=== PATIENT | male | born 1950 | race Caucasian/White ===

== ENCOUNTER 2016-07-27 21:53 | Inpatient (IN) | payer OTHER ==
[2016-07-27] MEDS ORDERED: SODIUM BICARBONATE 8.4% 50 MEQ/50 ML DISP.SYRIN IVPUSH ONE (21:58)
--- NOTE | 2016-07-27 21:58 | PDOC ---
History of Present Illness - General History Source: EMS, Spouse () Exam Limitations: Intubated, Unresponsive - History of Present Illness Initial Comments: 07/27/16 23:35 The patient is a 66 year old male with significant past medical history of COPD , hypertension, and diabetes who presents to the ED BIBA from home s/p cardiac arrest prior to arrival. As per EMS, patient was found down 30 minutes prior to arrival. 10 minutes prior to being found down, patient had complaints of nausea and one episode of vomiting. Patient went to bed and 10 minutes later was found by lying in bed and incontinent of bowel. EMS was called and upon arrival, they began CPR. Patient was intubated and cardiac thumper was placed. EMS administered 6 rounds of epi and 1 bicarb. Patient arrived to ER at 21:50, a strong pulse was noted at 21:52, ultrasound was done at bedside at 21:52 and a strong cardiac motility was noted. At 21:53, vitals were checked, blood pressure noted to be 150/67 and heart rate of 92. At 21:54, 1 round of bicarb was given at bedside. At 21:57, vitals were checked again, blood pressure noted to be 138/74 and heart rate of 90. After speaking with the , at bedside, patient had complaints of feeling ill with generalized malaise, fever and decreased appetite within the past 3 days. Patient visited his PMD, where he was told he had a viral illness and nothing else. also reports patient had 3 episodes of vomiting on Monday, Monday and this evening. states patient went to work today and after feeling ill, he decided to come home early. After coming home, patient had one episode of vomiting and went to bed, where found him down 10 minutes later. She denies any sick contacts or recent travels. Allergies: Penicillin Social History: No alcohol, tobacco, or drug use reported. Past Surgical History: None reported PCP: Dr. Padma Woodruff Pmp Certified Project Manager: Dr. Carter Paulino Cardio: Dr. Clover Sinclair GI: Dr. Ziyad Lind Tow Motor Mechanic: Dr. Louise Alvarado Nephro: Dr. Alicja Hernadez Associate Program Manager: Dr. Rosie Quigley Urologist: Dr. Ace Buckley ENT: Corrine Funez - Last Filed: 07/27/16 23:34> - General History Source: EMS <Vini Francois - Last Filed: 07/28/16 19:21> - General Stated Complaint: CARDIAC ARREST Time Seen by Provider: 07/27/16 21:57 Past History <Zheng Ferrota - Last Filed: 07/27/16 23:34> <Vini Francois - Last Filed: 07/28/16 19:21> - Past Medical History Allergies/Adverse Reactions: Allergies Allergy/AdvReac Type Severity Reaction Status Date / Time Penicillins Allergy Verified 12/29/14 08:58 Home Medications: Ambulatory Orders Insulin Lispro [Humalog] 100 unit SQ DAILY 07/28/16 Review of Systems - Review of Systems Able to Perform ROS?: No Comments:: 07/27/16 23:35 Unable to obtain as patient is unresponsive <KarenfarrahIrenaCorrine - Last Filed: 07/27/16 23:34> *Physical Exam - Vital Signs Last Vital Signs Temp Pulse Resp BP Pulse Ox 94 H 26 H 132/69 100 07/27/16 22:48 07/27/16 22:48 07/27/16 22:48 07/27/16 22:48 - Physical Exam Comments: 07/27/16 23:35 GENERAL: Well developed, well nourished. Pt is unresponsive. Intubated. HEENT: Normocephalic, atraumatic. 3mm dilated, but slowly reactivated to light. Slight conjunctival pallor. Sclera are non-icteric. Moist mucous membranes. Oropharynx is clear. NECK: Supple. Mild JVD. Carotid pulses 2+ and symmetric, without bruits. No thyromegaly. No lymphadenopathy. CARDIOVASCULAR: Tachycardic rate. Regular rhythm. No murmurs, rubs, or gallops. Distal pulses are 2+ and symmetric. PULMONARY: Intubated. No spontaneous breath sounds. Patient being bagged by BVM. ABDOMINAL: Soft. Non-tender. Mild distended. MUSCULOSKELETAL No bony deformities or tenderness. EXTREMITIES: No cyanosis. No clubbing. No edema. SKIN: Warm and dry. Normal capillary refill. No rashes. No jaundice. NEUROLOGICAL: Pt is unresponsive. Intubated. <Corrine Ferro - Last Filed: 07/27/16 23:34> Heart Score/ECG Review - ECG Impressions Comment:: 07/27/16 23:28 Sinus tachycardia @116bpm Possible left atrial enlargement RBBB Left posterior fascicular block Bifascicular block Abnormal ECG <Corrine Ferro - Last Filed: 07/27/16 23:34> ED Treatment Course - LABORATORY CBC & Chemistry Diagram: 07/27/16 22:04 07/27/16 22:04 - ADDITIONAL ORDERS Additional order review: Laboratory Results 07/27/16 07/27/16 07/27/16 22:14 22:12 22:04 INR Puncture Site Left radial ABG pH 7.29 L ABG pCO2 at Pt Temp 43.2 ABG pO2 at Pt Temp 535.0 H* ABG HCO3 20.2 L ABG O2 Sat (Measured) 99.9 H* ABG O2 Content 16.6 ABG Base Excess -5.5 L George Test Positive Carboxyhemoglobin 1.5 Methemoglobin 1.4 O2 Delivery Device Ventilator Oxygen Flow Rate 100% Vent Mode A/c Vent Rate 18 Mechanical Rate Yes PEEP 5.0 Pressure Support Vent 450 Sodium 135 L Potassium 4.6 Chloride 97 L Carbon Dioxide 21 Anion Gap 17 H BUN 22 H Creatinine 2.0 H Creat Clearance w eGFR 33.60 Random Glucose 327 H* Calcium 7.8 L Magnesium 2.3 Total Bilirubin 0.5 AST 58 H ALT 44 Alkaline Phosphatase 112 B-Natriuretic Peptide 2579.43 H Total Protein 6.1 L Albumin 2.6 L Lipase 51 L 07/27/16 22:04 INR 1.51 H Puncture Site ABG pH ABG pCO2 at Pt Temp ABG pO2 at Pt Temp ABG HCO3 ABG O2 Sat (Measured) ABG O2 Content ABG Base Excess George Test Carboxyhemoglobin Methemoglobin O2 Delivery Device Oxygen Flow Rate Vent Mode Vent Rate Mechanical Rate PEEP Pressure Support Vent Sodium Potassium Chloride Carbon Dioxide Anion Gap BUN Creatinine Creat Clearance w eGFR Random Glucose Calcium Magnesium Total Bilirubin AST ALT Alkaline Phosphatase B-Natriuretic Peptide Total Protein Albumin Lipase 07/27/16 22:04 RBC 3.95 L MCV 91.6 MCHC 33.1 RDW 13.3 MPV 9.7 Neutrophils % 67.8 Lymphocytes % 22.9 Monocytes % 8.8 Eosinophils % 0.1 Basophils % 0.4 - RADIOLOGY Radiograph Interpretation: 07/27/16 23:30 RAD/CHEST X-RAY PORTABLE Radiologist's Impression: The cardiac silhouette remains within normal limits in size. Bilateral interstitial and airspace opacities are present suggestive of noncardiogenic pulmonary venous congestion versus bilateral interstitial infiltrates. Endotracheal tube tip and distal end of the NG tube are in satisfactory position. The mediastinum and visualized osseous structures appear intact. Impression: Bilateral interstitial and airspace opacities suggestive of pneumonia versus noncardiogenic pulmonary venous congestion. Correlate clinically. - Medications Given in the ED: ED Medications Discontinued Medications Generic Name Dose Route Start Last Admin Trade Name Freq PRN Reason Stop Dose Admin Sodium Bicarbonate 50 meq 07/27/16 21:58 07/27/16 22:30 Sodium Bicarbonate 8.4% - IVPUSH 07/27/16 21:59 50 meq ONCE ONE Administration <Corrine Ferro - Last Filed: 07/27/16 23:34> - LABORATORY CBC & Chemistry Diagram: 07/28/16 16:15 07/28/16 16:15 <Vini Francois - Last Filed: 07/28/16 19:21> Medical Decision Making - Medical Decision Making 07/27/16 23:[address] Padma Woodruff (via answering service) at 23:00 Awaiting call back Patient's case discussed with Dr. Woodruff at 23:06 <Corrine Ferro - Last Filed: 07/27/16 23:34> - Medical Decision Making 07/27/16 23:10 Dr. Francois: The scribe's documentation has been prepared under my direction and personally reviewed by me in its entirery. I confirm that the note above accurately reflects all work, treatment, procedures, and medical decision making performed by me. Patient has maintain spontaneous vital signs since he is presented to the ER. patient will be admitted to the ICU. patient's primary care doctor to give orders fo admission. patient found have bilateral pneumonia verse non- cardiogenic pulmonary edema <Vini Francois - Last Filed: 07/28/16 19:21> *DC/Admit/Observation/Transfer - Attestations Scribe Attestion: 07/27/16 23:29 Documentation prepared by Corrine Ferro, acting as medical assistant instructor for Vini Francois MD <Corrine Ferro - Last Filed: 07/27/16 23:34> - Discharge Dispostion Admit: Yes <Vini Francois - Last Filed: 07/28/16 19:21> Diagnosis at time of Disposition: Cardiac arrest, Non-cardiogenic pulmonary edema Pneumonia Qualifiers: Pneumonia type: due to unspecified organism Laterality: bilateral - Referrals
[2016-07-27] MEDS ORDERED: MIDAZOLAM HCL 2 MG/2 ML SINGLE DOSE VIAL IVPUSH ONE (22:15)
[2016-07-27] MEDS ORDERED: PROPOFOL 100 ML ONE (22:18)
[2016-07-27] MEDS ORDERED: MIDAZOLAM HCL 2 MG/2 ML SINGLE DOSE VIAL ONE (22:18)
[2016-07-27 22:20] LABS: BASOPHIL 0.4 % (0-2.0); EOSINOPHIL 0.1 % (0-4.5); MCH 30.3 pg (25.7-33.7); MCHC 33.1 g/dl (32.0-35.9); MEAN CELL VOLUME 91.6 fl (80-96); MEAN PLT VOLUME 9.7 fl (7.5-11.1); NEUTROPHILS 67.8 % (42.8-82.8); PLATELET COUNT 154 K/MM3 (134-434); RDW 13.3 % (11.9-15.9); WHITE BLOOD COUNT 12.9 K/mm3 (4.0-10.0)
[2016-07-27 22:21] LABS: METHEMOGLOBIN 1.4 % (0.4-1.5)
[2016-07-27 22:23] LABS: ARTERIAL BLD GAS O2 SATURATION 99.9 % (90-98.9); ARTERIAL BLOOD GAS BASE EXCESS -5.5 meq/l (-2-2); ARTERIAL BLOOD GAS HCO3 20.2 meq/L (22-26)
[2016-07-27 22:24] LABS: ALLENS TEST POSITIVE; ART PUNCT SITE LEFT RADIAL; ARTERIAL BLOOD GAS pH 7.29 (7.35-7.45); LPM/O2% 100%; MECH. VENT. YES; PT. ON O2? YES; TYPE OF O2 VENTILATOR; VENT RATE 18; VT/PRESS 450
[2016-07-27 22:33] LABS: INR 1.51 (0.82-1.09); PROTHROMBIN TIME (PATIENT) 16.7 SEC (9.98-11.88)
[2016-07-27 22:47] LABS: ALBUMIN 2.6 g/dl (3.4-5.0); ANION GAP 17 (8-16); BILIRUBIN,TOTAL 0.5 mg/dL (0.2-1.0); CALCIUM 7.8 mg/dL (8.5-10.1); CO2 21 mmol/L (21-32); GLUCOSE,RANDOM 327 mg/dL (74-106); SGPT/ALT 44 U/L (12-78); TOT PROT 6.1 g/dl (6.4-8.2)
[2016-07-27 22:49] LABS: ALK PHOS 112 U/L (45-117)
[2016-07-27 22:50] LABS: MAGNESIUM 2.3 mg/dL (1.8-2.4); SGOT/AST 58 U/L (15-37)
[2016-07-27] MEDS ORDERED: LEVOFLOXACIN 750 MG IVPB 150 ML IVPB ONE ×2 (22:50→22:51)
[2016-07-27 22:58] LABS: URINE APPEARANCE CLEAR; URINE BILIRUBIN NEGATIVE (NEGATIVE); URINE COLOR LTYELLOW; URINE GLUCOSE (UA) 3+ (NEGATIVE); URINE KETONE TRACE (NEGATIVE); URINE LEUK ESTERASE NEGATIVE (NEGATIVE); URINE NITRITE NEGATIVE (NEGATIVE); URINE UROBILINOGEN NEGATIVE E.U./dl (0.2-1.0)
[2016-07-27 23:01] LABS: URINE BLOOD 2+ (NEGATIVE); URINE PROTEIN 2+ (NEGATIVE)
[2016-07-27 23:03] LABS: URINE BACTERIA FEW /hpf (NONE SEEN); URINE MUCUS RARE; URINE RBC 39 /hpf (0-3); URINE WBC 15 /hpf (3-5); YEAST RARE
[2016-07-27 23:29] LABS: ACETONE SERUM NEGATIVE (NEGATIVE)
[2016-07-27] MEDS ORDERED: ROCURONIUM BROMIDE 50 MG/5 ML VIAL IV ONE ×2 (23:30→23:49)
[2016-07-27] MEDS ORDERED: RAPID SEQUENCE INTUBATION KIT NR ONE ×2 (23:43→23:45)
[2016-07-27 23:50] LABS: TROPONIN I 0.06 ng/ml (0.00-0.05)
[2016-07-27] MEDS: PROPOFOL 100 ML IVPB SCH (23:58)
[2016-07-28] MEDS ORDERED: RAPID SEQUENCE INTUBATION KIT NR ONE (00:35)
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
[2016-07-28] MEDS ORDERED: ALBUTEROL SO4 0.083% IH SOL 2.5 MG/3 ML VIAL.NEB. NEB ONE (00:50)
[2016-07-28] MEDS ORDERED: AZITHROMYCIN IVPB 500 MG in DEXTROSE 5%-WATER - 250 ML IVPB ONE (01:21)
[2016-07-28] MEDS ORDERED: ATORVASTATIN CA 80 MG TABLET (FP) PO ONE (01:23)
[2016-07-28] MEDS ORDERED: ALBUTEROL SO4 0.083% IH SOL 2.5 MG/3 ML VIAL.NEB. NEB PRN (01:24)
[2016-07-28 01:28] VITALS: BMI 23.9
[2016-07-28 01:38] LABS: BASOPHIL 0.1 % (0-2.0); MCH 30.4 pg (25.7-33.7); MCHC 33.7 g/dl (32.0-35.9); MEAN CELL VOLUME 90.1 fl (80-96); MEAN PLT VOLUME 9.4 fl (7.5-11.1); NEUTROPHILS 84.7 % (42.8-82.8); PLATELET COUNT 137 K/MM3 (134-434); WHITE BLOOD COUNT 8.4 K/mm3 (4.0-10.0)
[2016-07-28] MEDS ORDERED: levETIRAcetam 500 MG/5 ML INJECTION VIAL IVPB ONE (01:41)
[2016-07-28 01:44] LABS: ARTERIAL BLD GAS O2 SATURATION 94.6 % (90-98.9); ARTERIAL BLOOD GAS BASE EXCESS -3.8 meq/l (-2-2); ARTERIAL BLOOD GAS HCO3 22.7 meq/L (22-26); ARTERIAL BLOOD GAS PO2 81.9 mmHg (80-100)
[2016-07-28 01:45] LABS: ALLENS TEST POSITIVE; ART PUNCT SITE RIGHT RADIAL; ARTERIAL BLOOD GAS pH 7.28 (7.35-7.45); LPM/O2% 45%; MECH. VENT. YES; PT. ON O2? YES; TYPE OF O2 MECH VENT; VENT RATE 18; VT/PRESS 375
[2016-07-28] MEDS ORDERED: ENALAPRILAT DIHYDRATE 1.25 MG/1 ML VIAL IVPB ONE (01:47)
[2016-07-28 01:50] LABS: INR 1.55 (0.82-1.09); PROTHROMBIN TIME (PATIENT) 17.2 SEC (9.98-11.88)
[2016-07-28] MEDS ORDERED: VECURONIUM BROMIDE 10 MG VIAL ONE (01:51)
[2016-07-28 01:52] LABS: ACTIVATED PTT 29.2 SECONDS (26.9-34.4)
[2016-07-28] MEDS: MIDAZOLAM 100 MG in SODIUM CHLORIDE 100 ML IVPB SCH (01:54)
[2016-07-28 02:00] LABS: ALBUMIN 2.7 g/dl (3.4-5.0); BILIRUBIN,TOTAL 0.6 mg/dL (0.2-1.0); CALCIUM 7.3 mg/dL (8.5-10.1); CREATININE 1.8 mg/dL (0.7-1.3); MAGNESIUM 1.8 mg/dL (1.8-2.4); PHOSPHOROUS 4.8 mg/dL (2.5-4.9); TOT PROT 6.2 g/dl (6.4-8.2)
[2016-07-28] MEDS: FENTANYL INJECTION 500 MCG in DEXTROSE 5%-WATER - 90 ML IJ SCH ×2 (02:01→13:50)
[2016-07-28] MEDS: VECURONIUM BROMIDE 50 MG in DEXTROSE 5%-WATER - 250 ML IVPB SCH ×2 (02:02→04:38)
[2016-07-28] MEDS ORDERED: INSULIN REGULAR HUMAN 100 UNITS/ML *VIAL IVPUSH ONE (02:08)
[2016-07-28] MEDS ORDERED: SODIUM CHLORIDE 1,000 ML IV SCH (02:15)
[2016-07-28] MEDS ORDERED: AZITHROMYCIN IVPB 500 MG/250 ML D5W PRE-DOCKED IVPB ONE (02:30)
[2016-07-28] MEDS: INSULIN SLIDING SCALE (NOVOLOG) 1 VIAL SQ SCH ×3 (06:15→16:51)
[2016-07-28] MEDS: ALBUTEROL SO4 2.5/IPRATROPIUM 0.5 INH SOL 3 ML VIAL.NEB. NEB SCH ×3 (06:15→22:54)
[2016-07-28 08:38] LABS: BASOPHIL 0.1 % (0-2.0); EOSINOPHIL 0.1 % (0-4.5); MCH 30.3 pg (25.7-33.7); MEAN PLT VOLUME 9.4 fl (7.5-11.1); NEUTROPHILS 83.1 % (42.8-82.8); PLATELET COUNT 125 K/MM3 (134-434); RDW 13.5 % (11.9-15.9); WHITE BLOOD COUNT 7.9 K/mm3 (4.0-10.0)
[2016-07-28 09:07] LABS: ALBUMIN 2.4 g/dl (3.4-5.0); CALCIUM 7.3 mg/dL (8.5-10.1); MAGNESIUM 1.9 mg/dL (1.8-2.4)
[2016-07-28 09:11] LABS: BILIRUBIN,TOTAL 0.3 mg/dL (0.2-1.0); CREATININE 1.7 mg/dL (0.7-1.3); PHOSPHOROUS 2.2 mg/dL (2.5-4.9); TOT PROT 5.5 g/dl (6.4-8.2)
--- NOTE | 2016-07-28 09:16 | CON.CARD ---
Consult Consult Specialty:: Cardiology Referred by:: Dinesh Woodruff MD Reason for Consultation:: Post arrest - History of Present Illness Chief Complaint: Post arrest History of Present Illness: Pt is a 66yr old man with PMHx including COPD, HTN, CAD post AR with abnl MPI, CKD, PAD, tobacco abuse and DM presented to the ER via ems s/p cardiac arrest. Per report, pt endorsed malaise, subjective fever and decreased PO intake x 3 days and vomiting since Monday, pt endorsed nausea and vomited ~10 minutes prior to being found incontinent of bowel and unresponsive. Per pt was still breathing when EMS was called, pt down ~30 minutes prior to arrival, initial rhythm unknown. Pt intubated, acs initiated at 2150 with ROSC s/p 6 rounds of epi and 1 bicarb. Pt started on Levaquin, IVF and cooling protocol and admitted to the ICU for further management. Upon assessment pt unresponsive on ventilator, cooling blanket and low dose propofol, hemodynamically stable. Myoclonic jerks off sedation by report. - History Source History Provided By: Medical Record Limitations to Obtaining History: Intubated - Past Medical History Cardio/Vascular: Yes: CAD, HTN, Hyperlipdemia, AR Pulmonary: Yes: COPD Endocrine: Yes: Diabetes Mellitus - Alcohol/Substance Use Hx Alcohol Use: No - Smoking History Smoking history: Unknown if ever smoked Have you smoked in the past 12 months: Yes Aproximately how many cigarettes per day: 20 Home Medications - Allergies Allergies/Adverse Reactions: Allergies Allergy/AdvReac Type Severity Reaction Status Date / Time Penicillins Allergy Verified 12/29/14 08:58 - Home Medications Home Medications: Ambulatory Orders Insulin Lispro [Humalog] 100 unit SQ DAILY 07/28/16 Review of Systems Unable to obtain ROS, reason: Sedated and intubated Vital Signs: Vital Signs Temperature 96.2 F L 07/28/16 08:00 Pulse Rate 84 07/28/16 08:00 Respiratory Rate 22 07/28/16 08:50 Blood Pressure 120/61 07/28/16 08:00 O2 Sat by Pulse Oximetry (%) 100 07/28/16 01:06 Respiratory: Yes: Regular, Diminished, Intubated, Mechanically Ventilated, Rhonchi Gastrointestinal: Yes: Soft, Hypoactive Bowel Sounds Cardiovascular: Yes: Regular Rate and Rhythm JVD: No Carotid Bruit: No Heart Sounds: Yes: S1, S2 Edema: No - Other Data Labs, Other Data: CBC, BMP 07/28/16 08:17 07/28/16 08:17 INR, PTT INR 1.55 (0.82-1.09) H 07/28/16 01:00 Troponin, BNP 07/28/16 01:00 B-Natriuretic Peptide 2627.14 H Troponin, BNP 07/28/16 01:00 B-Natriuretic Peptide 2627.[address] @ 116 RBBB Ejection Fraction %: LVEF > or = 40 % Imaging - Results Chest X-ray: Report Reviewed (Pulmonary edema) Assessment/Plan 01/01/2015 Preserved LV fxn, mild MR, TR 12/29/2014 Nuc stress: Mod size inferior moderate ischemia, small zone of infarction, LVEF 41% 1. s/p cardiopulmonary arrest 2. Acute systolic failure with pulm edema 3. CAD h/o AR, demand ischemia 4. Acute on CKD improving 5. Suspect anoxic brain injury 6. COPD P:1. Wean vent per ABG, BD, maintained on empiric abx for aspiration PNA, neuro f/u 2. Trend troponins to document peak, f/u echocardiogram to assess ventricular and valve fxn 3. Resume Altace 5 qd, Zocor 40 qhs, ASA 81 qd 4. Enteral feeds, DVT and GI prophylaxis, d/c IVF, diuresis as needed 5. Thank you for consultative opportunity
[2016-07-28 09:18] LABS: INR 1.57 (0.82-1.09); PROTHROMBIN TIME (PATIENT) 17.4 SEC (9.98-11.88)
[2016-07-28 09:20] LABS: ACTIVATED PTT 23.7 SECONDS (26.9-34.4)
[2016-07-28 09:27] LABS: TROPONIN I 1.53 ng/ml (0.00-0.05)
[2016-07-28 10:00] LABS: ARTERIAL BLOOD GAS BASE EXCESS -0.1 meq/l (-2-2); ARTERIAL BLOOD GAS HCO3 24.4 meq/L (22-26); ARTERIAL BLOOD GAS pH 7.38 (7.35-7.45)
[2016-07-28] MEDS ORDERED: INSULIN DETEMIR 100 UNITS/ML MDV SQ SCH (10:00)
[2016-07-28 10:01] LABS: ALLENS TEST POSITIVE; ART PUNCT SITE RIGHT RADIAL; LPM/O2% 35%; MECH. VENT. ESPRIT; PT. ON O2? YES; TYPE OF O2 MEC.VENT; VENT RATE 22; VT/PRESS 375
[2016-07-28] MEDS ORDERED: PT OWN MED DRAWER 7, Y5N ONE (10:51)
[2016-07-28] MEDS: PANTOPRAZOLE SODIUM 100 ML IVPB SCH (11:07)
--- NOTE | 2016-07-28 11:22 | HP ---
Admitting History and Physical - Primary Care Physician PCP: Padma Woodruff - Admission Chief Complaint: cardiac arrest History of Present Illness: From ER Notes-- The patient is a 66 year old male with significant past medical history of COPD , hypertension, and diabetes who presents to the ED BIBA from home s/p cardiac arrest prior to arrival. As per EMS, patient was found down 30 minutes prior to arrival. 10 minutes prior to being found down, patient had complaints of nausea and one episode of vomiting. Patient went to bed and 10 minutes later was found by lying After speaking with the , at bedside, patient had complaints of feeling ill with generalized malaise, fever and decreased appetite within the past 3 days. Patient visited his PMD, where he was told he had a viral illness and nothing else. also reports patient had 3 episodes of vomiting on Monday, Monday and this evening. states patient went to work today and after feeling ill, he decided to come home early. After coming home, patient had one episode of vomiting and went to bed, where found him down 10 minutes later. She denies any sick contacts or recent travels. Pt seen by me in ICU Spoke to staff and pt's About 3 days prior to the arrest , pt has been having generalised abdominal pain , nausea and diarrhea . He had seen Dr Woodruff in the office 2 days ago and told him he was getting better- examination was benign and pt was told that it was viral illness. [place]esteday after dinner , pt's said that he did not eat much, vomited his dinner and c/o abdominal pain and went to his room. He " did not look right " per and she found him in the room unconscious and EMS was called. Pt is intubated, sedated and hypothermia protocol in progress.Also on Vecuronium Not on pressor support states his BGM were in the 150-200 range- even before dinner it was 200 History Source: Medical Record Limitations to Obtaining History: Intubated - Past Medical History Cardiovascular: Yes: CAD, HTN, Hyperlipdemia, CT Pulmonary: Yes: COPD Endocrine: Yes: Diabetes Mellitus - Smoking History Smoking history: Unknown if ever smoked Have you smoked in the past 12 months: Yes Aproximately how many cigarettes per day: 20 - Alcohol/Substance Use Hx Alcohol Use: No Home Medications - Allergies Allergies/Adverse Reactions: Allergies Allergy/AdvReac Type Severity Reaction Status Date / Time Penicillins Allergy Verified 12/29/14 08:58 - Home Medications Home Medications: Ambulatory Orders Insulin Lispro [Humalog] 100 unit SQ DAILY 07/28/16 Review of Systems Unable to obtain ROS, reason: intubated Physical Examination Vital Signs: Vital Signs Temperature 94 F L 07/28/16 10:00 Pulse Rate 76 07/28/16 10:00 Respiratory Rate 22 07/28/16 10:00 Blood Pressure 142/70 07/28/16 10:00 O2 Sat by Pulse Oximetry (%) 96 07/28/16 09:00 Constitutional: Yes: No Distress, Other (intubated) Cardiovascular: Yes: Regular Rate and Rhythm Respiratory: Yes: Diminished Gastrointestinal: Yes: Normal Bowel Sounds, Soft, Abdomen, Obese. No: Distention, Tenderness Edema: No Neurological: Yes: Other (intubated , sedated) Labs: CBC, BMP 07/28/16 08:17 07/28/16 08:17 Imaging - Results Chest X-ray: Image Reviewed (congestion) EKG: Image Reviewed (sinus tacycardia) Assessment/Plan PLAN Cardiac arrest Strep pneumoniae Pneumonia Systolic CHF- decompensated CKD Diabetes HTN -- On Hypothermia protocol, sedation and Paralytic --ID evaluation -- on Zithromax now -- ICU monitoring -- Keppra for seizure prophylaxis -- no pressors -- check blood and urine cultures -- continue with care -- DVT prophylaxis -- spoke with time spent 40 min
[2016-07-28] MEDS: levETIRAcetam 500 MG/5 ML INJECTION VIAL IVPB SCH ×2 (11:44→22:25)
--- NOTE | 2016-07-28 13:28 | CONSULT ---
Consult - text type - Consultation Consultation Note: Renal Consult for CKD in settnig of Cardiac Arrest This is a 66 year old Gentleman with PMhx of CKD Stage 3 (baseline Cr 2, eGFR 33 ), Hypertension, DM, CAD s/p AL, PVD who presented s/p Cardiac Arrest at home s/ p resuscitation and now in ICU on Vent. As per pts pt has been complaining of Abd discomfort and Nausea after coming home from work yesterday. Vomited x 1 at home. Pt was found unresponsive by his . He was down for 10 minutes. S/p Epi x6. Pt currently in the ICU. BP stable off pressers. Suspected PNA. On Vent , sedated. Family at the bedside. PMhx: as above Allergies: PCN Social hx: Former smoker ROS: unable to obtain because of clinical status Home Meds : Home Medications Medication Instructions Recorded Insulin Lispro [Humalog] 100 unit SQ DAILY 07/28/16 Glipizide, Lantus, Tradjenta, Ramipril, Tamsulosin, Simavastatin, Metoprolol, Ranexa, Vit D, Spiriva, Advair, ASA, humalog Vital Signs Temperature 93 F L 07/28/16 12:00 Pulse Rate 66 07/28/16 12:00 Respiratory Rate 22 07/28/16 12:00 Blood Pressure 152/72 07/28/16 12:00 O2 Sat by Pulse Oximetry (%) 96 07/28/16 09:00 Intake & Output 07/25/16 07/26/16 07/27/16 07/28/16 23:59 23:59 23:59 23:59 Intake Total 2637 Output Total 1100 Balance 1537 Weight 205 lb 148 lb 4.8 oz Gen: Intubated, sedated HEENT: NC/AT, ET tube in place, no JVD CVS: RRR, No M/R Lungs: Dec BS lung bases, no rales Abd: soft NT/ND Ext: No edema, clubbing or cyanosis : no bladder distension Neuro: Sedated CBC, BMP 07/28/16 08:17 07/28/16 08:17 Current Medications Albuterol Sulfate (Ventolin 0.083% Nebulizer Soln -) 1 amp NEB Q4H PRN PRN Reason: SHORT OF BREATH/WHEEZING Albuterol/Ipratropium (Duoneb -) 1 amp NEB TIDR [facility] Last Admin: 07/28/16 06:15 Dose: 1 amp Atorvastatin Calcium (Lipitor -) 80 mg PO HS VANESSA Propofol (Diprivan -) 100 mls @ 2.79 mls/hr IVPB TITR VANESSA; 5 MCG/KG/MIN PRN Reason: Protocol Last Admin: 07/27/16 23:58 Dose: 5.579 mls/hr Fentanyl 500 mcg/ Dextrose 100 mls @ 10 mls/hr IJ TITR VANESSA PRN Reason: 50 MCG/HR Stop: 07/29/16 00:29 Last Titration: 07/28/16 03:52 Dose: 50 mcg/hr Midazolam HCl 100 mg/ Sodium (Chloride) 100 mls @ 2 mls/hr IVPB TITR VANESSA; 2 MG/ HR PRN Reason: Protocol Last Admin: 07/28/16 01:54 Dose: 2 mls/hr Vecuronium [place] 50 mg/ (Dextrose) 250 mls @ 22.31 mls/hr IVPB TITR VANESSA; 0.8 MCG/KG/MIN PRN Reason: Protocol Last Admin: 07/28/16 04:38 Dose: Not Given Pantoprazole Sodium (Protonix 40mg Ivpb (Pre-Docked)) 100 mls @ 200 mls/hr IVPB DAILY [facility] Last Admin: 07/28/16 11:07 Dose: 200 mls/hr Ceftriaxone Sodium 2 gm/ (Dextrose) 100 mls @ 200 mls/hr IVPB DAILY [facility] Insulin Aspart (Novolog Vial Sliding Scale -) 1 vial SQ TIDAC VANESSA PRN Reason: Protocol Last Admin: 07/28/16 11:38 Dose: 3 units Levetiracetam (Keppra Injection -) 500 mg IVPB BID [facility] Last Admin: 07/28/16 11:44 Dose: 500 mg A/P 66 year old Gentleman with PMhx of CKD Stage 3 (baseline Cr 2, eGFR 33), Hypertension, DM, CAD s/p AL, PVD who presented s/p Cardiac Arrest at home s/p resuscitation and now in ICU on Vent. #Cardiac Arrest Etiology uncertain at this time ? primary cardiac event (Elevated Trop, Abnormal echo) vs. PNA (aspiration) Pt in the past known to have midl hyperkalemia but K was not elevated on presentation Continue Management as per ICU Vent support #CKD stage 3 Renal function appears stable and at baseline continue IVF as needed for hemodynamic support Trend BUN/Cr Dose all meds for Cr Cl ~30 avoid IV contrast if possible #Hx of Hypertension BP stable off Antihypertensives #Anemia Trend CBC #Suspected PNA continue emperic Abx f/u cultures Thank you Will follow Ham Patel DO
--- NOTE | 2016-07-28 14:45 | PN ---
Teaching Attending Note Name of Resident: Inderjit Araiza ATTENDING PHYSICIAN STATEMENT I saw and evaluated the patient. I reviewed the resident's note and discussed the case with the resident. I agree with the resident's findings and plan as documented. SUBJECTIVE: Patient seen and examined in the ICU. Intubated and sedated. Hemodynamics stable on pressors. Hypothermia protocol ongoin (34.8 degrees). AC mode of vent. Paralyzed on Vecuronium drip with 1 twitch noted on TOF. Intake & Output 07/25/16 07/26/16 07/27/16 07/28/16 23:59 23:59 23:59 23:59 Intake Total 2637 Output Total 1100 Balance 1537 Weight 205 lb 148 lb 4.8 oz Last Vital Signs Temp Pulse Resp BP Pulse Ox 92.4 F L 60 22 117/62 96 07/28/16 14:00 07/28/16 14:00 07/28/16 14:23 07/28/16 14:00 07/28/16 09:00 Active Medications Albuterol Sulfate (Ventolin 0.083% Nebulizer Soln -) 1 amp NEB Q4H PRN PRN Reason: SHORT OF BREATH/WHEEZING Albuterol/Ipratropium (Duoneb -) 1 amp NEB TIDR VANESSA Last Admin: 07/28/16 13:50 Dose: 1 amp Atorvastatin Calcium (Lipitor -) 80 mg PO HS VANESSA Propofol (Diprivan -) 100 mls @ 2.79 mls/hr IVPB TITR VANESSA; 5 MCG/KG/MIN PRN Reason: Protocol Last Admin: 07/27/16 23:58 Dose: 5.579 mls/hr Fentanyl 500 mcg/ Dextrose 100 mls @ 10 mls/hr IJ TITR VANESSA PRN Reason: 50 MCG/HR Stop: 07/29/16 00:29 Last Admin: 07/28/16 13:50 Dose: 5 mls/hr Midazolam HCl 100 mg/ Sodium (Chloride) 100 mls @ 2 mls/hr IVPB TITR VANESSA; 2 MG/ HR PRN Reason: Protocol Last Admin: 07/28/16 01:54 Dose: 2 mls/hr Vecuronium [place] 50 mg/ (Dextrose) 250 mls @ 22.31 mls/hr IVPB TITR VANESSA; 0.8 MCG/KG/MIN PRN Reason: Protocol Last Admin: 07/28/16 04:38 Dose: Not Given Pantoprazole Sodium (Protonix 40mg Ivpb (Pre-Docked)) 100 mls @ 200 mls/hr IVPB DAILY [facility] Last Admin: 07/28/16 11:07 Dose: 200 mls/hr Ceftriaxone Sodium 2 gm/ (Dextrose) 100 mls @ 200 mls/hr IVPB DAILY [facility] Sodium Phosphate 15 mm/ Sodium (Chloride) 255 mls @ 62.5 mls/hr IVPB ONCE ONE Stop: 07/28/16 18:39 Insulin Aspart (Novolog Vial Sliding Scale -) 1 vial SQ TIDAC [facility] PRN Reason: Protocol Last Admin: 07/28/16 11:38 Dose: 3 units Levetiracetam (Keppra Injection -) 500 mg IVPB BID [facility] Last Admin: 07/28/16 11:44 Dose: 500 mg Constitutional: Yes: Intubated and sedated Eyes: Yes: Other (pupils sluggish) HENT: Yes: Other (NGT with dark residual) Neck: Yes: WNL Cardiovascular: Yes: S1, S2, Other (sinus on tele) Respiratory: Yes: Diminished at the bases, bilateral rhonchi, Intubated / Ventilated Gastrointestinal: Yes: Normal Bowel Sounds, Soft, Abdomen, Obese, Distention ...Rectal Exam: Yes: Deferred Renal/: Yes: [place] Present Musculoskeletal: Yes: WNL Extremities: Yes: WNL Edema: No Peripheral Pulses WNL: Yes (+1 bilateral pedal pulses) Integumentary: Yes: Other (red burn [place] on lower sternal region approximately 3cm in diameter) Neurological: Yes: Unresponsive Labs: Laboratory Results - last 24 hr 07/27/16 07/27/16 07/27/16 22:00 22:00 22:04 WBC 12.9 H RBC 3.95 L Hgb 12.0 Hct 36.2 MCV 91.6 MCHC 33.1 RDW 13.3 Plt Count 154 MPV 9.7 Neutrophils % 67.8 Lymphocytes % 22.9 Monocytes % 8.8 Eosinophils % 0.1 Basophils % 0.4 INR PTT (Actin FS) Puncture Site ABG pH ABG pCO2 at Pt Temp ABG pO2 at Pt Temp ABG HCO3 ABG O2 Sat (Measured) ABG O2 Content ABG Base Excess George Test Carboxyhemoglobin Methemoglobin O2 Delivery Device Oxygen Flow Rate Vent Mode Vent Rate Mechanical Rate PEEP Pressure Support Vent Sodium Potassium Chloride Carbon Dioxide Anion Gap BUN Creatinine Creat Clearance w eGFR POC Glucometer Random Glucose Lactic Acid Calcium Phosphorus Magnesium Total Bilirubin AST ALT Alkaline Phosphatase Creatine Kinase 308 Creatine Kinase Index 1.3 CK-MB (CK-2) 4.116 H CK-MB (CK-2) Rel Index Cancelled Troponin I 0.06 H B-Natriuretic Peptide Total Protein Albumin Lipase Urine Color Urine Appearance Urine pH Ur Specific [place] Urine Protein Urine Glucose (UA) Urine Ketones Urine Blood Urine Nitrite Urine Bilirubin Urine Urobilinogen Ur Leukocyte Esterase Urine RBC Urine WBC Urine Bacteria Urine Mucus Urine Yeast Acetone, Qual Blood Type Antibody Screen 07/27/16 07/27/16 07/27/16 22:04 22:04 22:04 WBC RBC Hgb Hct MCV MCHC RDW Plt Count MPV Neutrophils % Lymphocytes % Monocytes % Eosinophils % Basophils % INR 1.51 H PTT (Actin FS) Puncture Site ABG pH ABG pCO2 at Pt Temp ABG pO2 at Pt Temp ABG HCO3 ABG O2 Sat (Measured) ABG O2 Content ABG Base Excess George Test Carboxyhemoglobin Methemoglobin O2 Delivery Device Oxygen Flow Rate Vent Mode Vent Rate Mechanical Rate PEEP Pressure Support Vent Sodium 135 L Potassium 4.6 Chloride 97 L Carbon Dioxide 21 Anion Gap 17 H BUN 22 H Creatinine 2.0 H Creat Clearance w eGFR 33.60 POC Glucometer Random Glucose 327 H* Lactic Acid Calcium 7.8 L Phosphorus Magnesium 2.3 Total Bilirubin 0.5 AST 58 H ALT 44 Alkaline Phosphatase 112 Creatine Kinase Creatine Kinase Index CK-MB (CK-2) CK-MB (CK-2) Rel Index Troponin I B-Natriuretic Peptide 2579.43 H Total Protein 6.1 L Albumin 2.6 L Lipase 51 L Urine Color Urine Appearance Urine pH Ur Specific [place] Urine Protein Urine Glucose (UA) Urine Ketones Urine Blood Urine Nitrite Urine Bilirubin Urine Urobilinogen Ur Leukocyte Esterase Urine RBC Urine WBC Urine Bacteria Urine Mucus Urine Yeast Acetone, Qual Negative Blood Type A POSITIVE Antibody Screen Negative 07/27/16 07/27/16 07/27/16 22:12 22:14 22:45 WBC RBC Hgb Hct MCV MCHC RDW Plt Count MPV Neutrophils % Lymphocytes % Monocytes % Eosinophils % Basophils % INR PTT (Actin FS) Puncture Site Left radial ABG pH 7.29 L ABG pCO2 at Pt Temp 43.2 ABG pO2 at Pt Temp 535.0 H* ABG HCO3 20.2 L ABG O2 Sat (Measured) 99.9 H* ABG O2 Content 16.6 ABG Base Excess -5.5 L George Test Positive Carboxyhemoglobin 1.5 Methemoglobin 1.4 O2 Delivery Device Ventilator Oxygen Flow Rate 100% Vent Mode A/c Vent Rate 18 Mechanical Rate Yes PEEP 5.0 Pressure Support Vent 450 Sodium Potassium Chloride Carbon Dioxide Anion Gap BUN Creatinine Creat Clearance w eGFR POC Glucometer Random Glucose Lactic Acid Calcium Phosphorus Magnesium Total Bilirubin AST ALT Alkaline Phosphatase Creatine Kinase Creatine Kinase Index CK-MB (CK-2) CK-MB (CK-2) Rel Index Troponin I B-Natriuretic Peptide Total Protein Albumin Lipase Urine Color Ltyellow Urine Appearance Clear Urine pH 6.0 Ur Specific [place] 1.010 Urine Protein 2+ H Urine Glucose (UA) 3+ H Urine Ketones Trace H Urine Blood 2+ H Urine Nitrite Negative Urine Bilirubin Negative Urine Urobilinogen Negative Ur Leukocyte Esterase Negative Urine RBC 39 Urine WBC 15 Urine Bacteria Few Urine Mucus Rare Urine Yeast Rare Acetone, Qual Blood Type Antibody Screen 07/28/16 07/28/16 07/28/16 01:00 01:00 01:00 WBC 8.4 D RBC 3.85 L Hgb 11.7 Hct 34.7 L MCV 90.1 MCHC 33.7 RDW 13.0 Plt Count 137 MPV 9.4 Neutrophils % 84.7 H D Lymphocytes % 4.5 L D Monocytes % 10.7 H Eosinophils % 0.0 D Basophils % 0.1 INR 1.55 H PTT (Actin FS) 29.2 Puncture Site ABG pH ABG pCO2 at Pt Temp ABG pO2 at Pt Temp ABG HCO3 ABG O2 Sat (Measured) ABG O2 Content ABG Base Excess George Test Carboxyhemoglobin Methemoglobin O2 Delivery Device Oxygen Flow Rate Vent Mode Vent Rate Mechanical Rate PEEP Pressure Support Vent Sodium 134 L Potassium 5.4 H Chloride 97 L Carbon Dioxide 25 Anion Gap 12 BUN 25 H Creatinine 1.8 H Creat Clearance w eGFR 37.94 POC Glucometer Random Glucose 386 H* Lactic Acid Calcium 7.3 L Phosphorus 4.8 Magnesium 1.8 D Total Bilirubin 0.6 AST 67 H ALT 47 Alkaline Phosphatase 107 Creatine Kinase Creatine Kinase Index CK-MB (CK-2) CK-MB (CK-2) Rel Index Troponin I B-Natriuretic Peptide Total Protein 6.2 L Albumin 2.7 L Lipase Urine Color Urine Appearance Urine pH Ur Specific [place] Urine Protein Urine Glucose (UA) Urine Ketones Urine Blood Urine Nitrite Urine Bilirubin Urine Urobilinogen Ur Leukocyte Esterase Urine RBC Urine WBC Urine Bacteria Urine Mucus Urine Yeast Acetone, Qual Blood Type Antibody Screen 07/28/16 07/28/16 07/28/16 01:00 01:00 01:33 WBC RBC Hgb Hct MCV MCHC RDW Plt Count MPV Neutrophils % Lymphocytes % Monocytes % Eosinophils % Basophils % INR PTT (Actin FS) Puncture Site Right radial ABG pH 7.28 L ABG pCO2 at Pt Temp 50.0 H ABG pO2 at Pt Temp 81.9 D ABG HCO3 22.7 ABG O2 Sat (Measured) 94.6 ABG O2 Content 14.9 L ABG Base Excess -3.8 L George Test Positive Carboxyhemoglobin Methemoglobin O2 Delivery Device Mech vent Oxygen Flow Rate 45% Vent Mode A/c Vent Rate 18 Mechanical Rate Yes PEEP 5.0 Pressure Support Vent 375 Sodium Potassium Chloride Carbon Dioxide Anion Gap BUN Creatinine Creat Clearance w eGFR POC Glucometer Random Glucose Lactic Acid 1.692 Calcium Phosphorus Magnesium Total Bilirubin AST ALT Alkaline Phosphatase Creatine Kinase Creatine Kinase Index CK-MB (CK-2) CK-MB (CK-2) Rel Index Troponin I B-Natriuretic Peptide 2627.14 H Total Protein Albumin Lipase Urine Color Urine Appearance Urine pH Ur Specific [place] Urine Protein Urine Glucose (UA) Urine Ketones Urine Blood Urine Nitrite Urine Bilirubin Urine Urobilinogen Ur Leukocyte Esterase Urine RBC Urine WBC Urine Bacteria Urine Mucus Urine Yeast Acetone, Qual Blood Type Antibody Screen 07/28/16 07/28/16 07/28/16 04:55 06:03 08:17 WBC 7.9 RBC 3.60 L Hgb 10.9 L Hct 32.1 L MCV 89.0 MCHC 34.0 RDW 13.5 Plt Count 125 L MPV 9.4 Neutrophils % 83.1 H Lymphocytes % 6.7 L D Monocytes % 10.0 Eosinophils % 0.1 D Basophils % 0.1 INR PTT (Actin FS) Puncture Site ABG pH ABG pCO2 at Pt Temp ABG pO2 at Pt Temp ABG HCO3 ABG O2 Sat (Measured) ABG O2 Content ABG Base Excess George Test Carboxyhemoglobin Methemoglobin O2 Delivery Device Oxygen Flow Rate Vent Mode Vent Rate Mechanical Rate PEEP Pressure Support Vent Sodium Potassium Chloride Carbon Dioxide Anion Gap BUN Creatinine Creat Clearance w eGFR POC Glucometer [phone] Random Glucose Lactic Acid Calcium Phosphorus Magnesium Total Bilirubin AST ALT Alkaline Phosphatase Creatine Kinase Creatine Kinase Index CK-MB (CK-2) CK-MB (CK-2) Rel Index Troponin I B-Natriuretic Peptide Total Protein Albumin Lipase Urine Color Urine Appearance Urine pH Ur Specific [place] Urine Protein Urine Glucose (UA) Urine Ketones Urine Blood Urine Nitrite Urine Bilirubin Urine Urobilinogen Ur Leukocyte Esterase Urine RBC Urine WBC Urine Bacteria Urine Mucus Urine Yeast Acetone, Qual Blood Type Antibody Screen 07/28/16 07/28/16 07/28/16 08:17 08:17 08:17 WBC RBC Hgb Hct MCV MCHC RDW Plt Count MPV Neutrophils % Lymphocytes % Monocytes % Eosinophils % Basophils % INR PTT (Actin FS) Puncture Site ABG pH ABG pCO2 at Pt Temp ABG pO2 at Pt Temp ABG HCO3 ABG O2 Sat (Measured) ABG O2 Content ABG Base Excess [place] Test Carboxyhemoglobin Methemoglobin O2 Delivery Device Oxygen Flow Rate Vent Mode Vent Rate Mechanical Rate PEEP Pressure Support Vent Sodium 138 Potassium 4.2 D Chloride 101 Carbon Dioxide 28 Anion Gap 9 BUN 27 H Creatinine 1.7 H Creat Clearance w eGFR 40.53 POC Glucometer Random Glucose 223 H D Lactic Acid Calcium 7.3 L Phosphorus 2.2 L D Magnesium 1.9 Total Bilirubin 0.3 D AST 51 H D ALT 42 Alkaline Phosphatase 95 Creatine Kinase 286 Creatine Kinase Index 3.3 CK-MB (CK-2) 9.556 H CK-MB (CK-2) Rel Index Cancelled Troponin I 1.53 H* D B-Natriuretic Peptide Total Protein 5.5 L Albumin 2.4 L Lipase Urine Color Urine Appearance Urine pH Ur Specific [place] Urine Protein Urine Glucose (UA) Urine Ketones Urine Blood Urine Nitrite Urine Bilirubin Urine Urobilinogen Ur Leukocyte Esterase Urine RBC Urine WBC Urine Bacteria Urine Mucus Urine Yeast Acetone, Qual Blood Type Antibody Screen 07/28/16 07/28/16 08:30 09:50 WBC RBC Hgb Hct MCV MCHC RDW Plt Count MPV Neutrophils % Lymphocytes % Monocytes % Eosinophils % Basophils % INR 1.57 H PTT (Actin FS) 23.7 L Puncture Site Right radial ABG pH 7.38 ABG pCO2 at Pt Temp 41.9 ABG pO2 at Pt Temp 80.0 ABG HCO3 24.4 ABG O2 Sat (Measured) 96.0 ABG O2 Content 14.0 L ABG Base Excess -0.1 George Test Positive Carboxyhemoglobin Methemoglobin O2 Delivery Device Mec.vent Oxygen Flow Rate 35% Vent Mode A/c Vent Rate 22 Mechanical Rate Esprit PEEP 5.0 Pressure Support Vent 375 Sodium Potassium Chloride Carbon Dioxide Anion Gap BUN Creatinine Creat Clearance w eGFR POC Glucometer Random Glucose Lactic Acid Calcium Phosphorus Magnesium Total Bilirubin AST ALT Alkaline Phosphatase Creatine Kinase Creatine Kinase Index CK-MB (CK-2) CK-MB (CK-2) Rel Index Troponin I B-Natriuretic Peptide Total Protein Albumin Lipase Urine Color Urine Appearance Urine pH Ur Specific [place] Urine Protein Urine Glucose (UA) Urine Ketones Urine Blood Urine Nitrite Urine Bilirubin Urine Urobilinogen Ur Leukocyte Esterase Urine RBC Urine WBC Urine Bacteria Urine Mucus Urine Yeast Acetone, Qual Blood Type Antibody Screen Assessment/Plan S/P Cardiac Arrest with prolonged ROSC Suspected SUNDAR Shock -> Cardiogenic +/- Septic COPD HTN DM (?) PNA CHF CAD Demand ischemia Acute on CKD PLAN: AC mode of vent ABX per ID Follow ABG Trend troponins ECHO ASA VTE prophylaxis Hypothermia protocol Dr Dolan CCTime 35"
[2016-07-28] MEDS ORDERED: SODIUM PHOSPHATE - 15 MM in SODIUM CHLORIDE 250 ML IVPB ONE (15:00)
--- NOTE | 2016-07-28 15:03 | EKG ---
Test Reason : Blood Pressure : / mmHG Vent. Rate : 116 BPM Atrial Rate : 116 BPM P-R Int : 144 ms QRS Dur : 132 ms QT Int : 370 ms P-R-T Axes : 077 110 049 degrees QTc Int : 514 ms SINUS TACHYCARDIA POSSIBLE LEFT ATRIAL ENLARGEMENT RIGHT BUNDLE BRANCH BLOCK LEFT POSTERIOR FASCICULAR BLOCK BIFASCICULAR BLOCK ABNORMAL ECG NO PREVIOUS ECGS AVAILABLE Confirmed by ASHLEY LOPEZ, JET ([id number]) on 07/28/2016 3:03:12 PM Referred By: Confirmed By:JET RAMIREZ MD
--- NOTE | 2016-07-28 15:51 | CONS ---
DATE OF CONSULTATION: DATE OF DICTATION: 07/28/2016 A 66-year-old male with a history of COPD, hypertension, and diabetes, brought by ambulance after he sustained a cardiac arrest prior to arrival in the emergency room. As per EMS, he was found down 30 minutes prior to their arrival. He had complained previously of nausea and an episode of vomiting. He went to bed and 10 minutes later was found by his in bed incontinent of stool. EMS was called, and upon arrival began CPR. He was intubated and I am asked to see him as he apparently had a pneumococcal antigen in the urine positive. There was no preceding history of fever or infections. Past medical history as noted above. SOCIAL HISTORY: Denies tobacco, substance abuse, HIV risk factors. Allergies to PENICILLIN. PHYSICAL EXAMINATION: Vital Signs: Temperature on admission 95.2, pulse 83, blood pressure 120/83, respirations 18. Neck: Supple. Lungs: Diminished breath sounds. Heart: S1, S2. Regular rhythm. Abdomen: Soft, nontender. Hypoactive bowel sounds. White count of 12.9, hemoglobin 12, platelets 154, with a normal differential. INR 1.51. ABG 7.38, 42, 80, on 35% oxygen. BUN 27, creatinine 1.7. Liver enzymes within normal limits. Urinalysis: 39 RBCs, 15 WBCs. Blood culture, sputum culture pending. Chest x-ray was reviewed, shows bilateral congestive changes, cannot rule out underlying infiltrates versus cardiogenic edema. ASSESSMENT: A 56-year-old male with cardiopulmonary arrest, acute systolic failure with pulmonary edema, positive pneumococcal antigen of questionable clinical significance in this scenario but given the patient's critical status, blood cultures have been drawn and he will be treated with ceftriaxone 2 g daily pending blood and sputum cultures. ALEXANDR CHOE M.D. IMMANUEL/[id number]
[2016-07-28 16:00] LABS: URINE MARIJUANA THC NEGATIVE ng/ml (CUTOFF=50)
--- NOTE | 2016-07-28 16:55 | PN ---
Physical Exam: SUBJECTIVE: Patient seen and examined at bedside in ICU. Intubated & sedated and undergoing hypothermic protocol at present. Discussed case with family at bedside. OBJECTIVE: Vital Signs Period Temp Pulse Resp BP Sys/Mercer Pulse Ox Last 24 Hr 92 F-96.2 F 60-88 18-22 89-152/58-83 96-100 GENERAL: Intubated & sedated, in no acute distress HEENT: Atraumatic, PERRLA, No lymphadenopathy noted, moist membranes LUNGS: diminished breath sounds bilaterally (R>L) HEART: Regular rate and rhythm, S1, S2 without murmur, rub or gallop. ABDOMEN: Soft, nontender, nondistended, normoactive EXTREMITIES: 2+ pulses, warm, well-perfused, trace peripheral edema SKIN: Warm, dry, normal turgor, no rashes or lesions noted Laboratory Results - last 24 hr 07/28/16 07/28/16 07/28/16 01:00 01:00 01:00 WBC 8.4 D RBC 3.85 L Hgb 11.7 Hct 34.7 L MCV 90.1 MCHC 33.7 RDW 13.0 Plt Count 137 MPV 9.4 Neutrophils % 84.7 H D Lymphocytes % 4.5 L D Monocytes % 10.7 H Eosinophils % 0.0 D Basophils % 0.1 INR 1.55 H PTT (Actin FS) 29.2 Puncture Site ABG pH ABG pCO2 at Pt Temp ABG pO2 at Pt Temp ABG HCO3 ABG O2 Sat (Measured) ABG O2 Content ABG Base Excess George Test O2 Delivery Device Oxygen Flow Rate Vent Mode Vent Rate Mechanical Rate PEEP Pressure Support Vent Sodium 134 L Potassium 5.4 H Chloride 97 L Carbon Dioxide 25 Anion Gap 12 BUN 25 H Creatinine 1.8 H Creat Clearance w eGFR 37.94 POC Glucometer Random Glucose 386 H* Lactic Acid Calcium 7.3 L Phosphorus 4.8 Magnesium 1.8 D Total Bilirubin 0.6 AST 67 H ALT 47 Alkaline Phosphatase 107 Creatine Kinase Creatine Kinase Index CK-MB (CK-2) CK-MB (CK-2) Rel Index Troponin I B-Natriuretic Peptide Total Protein 6.2 L Albumin 2.7 L Opiates Screen Methadone Screen Barbiturate Screen Phencyclidine Screen Ur Amphetamines Screen MDMA (Ecstasy) Screen Benzodiazepines Screen Cocaine Screen U Marijuana (THC) Screen 07/28/16 07/28/16 07/28/16 01:00 01:00 01:33 WBC RBC Hgb Hct MCV MCHC RDW Plt Count MPV Neutrophils % Lymphocytes % Monocytes % Eosinophils % Basophils % INR PTT (Actin FS) Puncture Site Right radial ABG pH 7.28 L ABG pCO2 at Pt Temp 50.0 H ABG pO2 at Pt Temp 81.9 D ABG HCO3 22.7 ABG O2 Sat (Measured) 94.6 ABG O2 Content 14.9 L ABG Base Excess -3.8 L George Test Positive O2 Delivery Device Mech vent Oxygen Flow Rate 45% Vent Mode A/c Vent Rate 18 Mechanical Rate Yes PEEP 5.0 Pressure Support Vent 375 Sodium Potassium Chloride Carbon Dioxide Anion Gap BUN Creatinine Creat Clearance w eGFR POC Glucometer Random Glucose Lactic Acid 1.692 Calcium Phosphorus Magnesium Total Bilirubin AST ALT Alkaline Phosphatase Creatine Kinase Creatine Kinase Index CK-MB (CK-2) CK-MB (CK-2) Rel Index Troponin I B-Natriuretic Peptide 2627.14 H Total Protein Albumin Opiates Screen Methadone Screen Barbiturate Screen Phencyclidine Screen Ur Amphetamines Screen MDMA (Ecstasy) Screen Benzodiazepines Screen Cocaine Screen U Marijuana (THC) Screen 07/28/16 07/28/16 07/28/16 04:55 06:03 08:17 WBC 7.9 RBC 3.60 L Hgb 10.9 L Hct 32.1 L MCV 89.0 MCHC 34.0 RDW 13.5 Plt Count 125 L MPV 9.4 Neutrophils % 83.1 H Lymphocytes % 6.7 L D Monocytes % 10.0 Eosinophils % 0.1 D Basophils % 0.1 INR PTT (Actin FS) Puncture Site ABG pH ABG pCO2 at Pt Temp ABG pO2 at Pt Temp ABG HCO3 ABG O2 Sat (Measured) ABG O2 Content ABG Base Excess George Test O2 Delivery Device Oxygen Flow Rate Vent Mode Vent Rate Mechanical Rate PEEP Pressure Support Vent Sodium Potassium Chloride Carbon Dioxide Anion Gap BUN Creatinine Creat Clearance w eGFR POC Glucometer 364.38877 307.60867 Random Glucose Lactic Acid Calcium Phosphorus Magnesium Total Bilirubin AST ALT Alkaline Phosphatase Creatine Kinase Creatine Kinase Index CK-MB (CK-2) CK-MB (CK-2) Rel Index Troponin I B-Natriuretic Peptide Total Protein Albumin Opiates Screen Methadone Screen Barbiturate Screen Phencyclidine Screen Ur Amphetamines Screen MDMA (Ecstasy) Screen Benzodiazepines Screen Cocaine Screen U Marijuana (THC) Screen 07/28/16 07/28/16 07/28/16 08:17 08:17 08:17 WBC RBC Hgb Hct MCV MCHC RDW Plt Count MPV Neutrophils % Lymphocytes % Monocytes % Eosinophils % Basophils % INR PTT (Actin FS) Puncture Site ABG pH ABG pCO2 at Pt Temp ABG pO2 at Pt Temp ABG HCO3 ABG O2 Sat (Measured) ABG O2 Content ABG Base Excess George Test O2 Delivery Device Oxygen Flow Rate Vent Mode Vent Rate Mechanical Rate PEEP Pressure Support Vent Sodium 138 Potassium 4.2 D Chloride 101 Carbon Dioxide 28 Anion Gap 9 BUN 27 H Creatinine 1.7 H Creat Clearance w eGFR 40.53 POC Glucometer Random Glucose 223 H D Lactic Acid Calcium 7.3 L Phosphorus 2.2 L D Magnesium 1.9 Total Bilirubin 0.3 D AST 51 H D ALT 42 Alkaline Phosphatase 95 Creatine Kinase 286 Creatine Kinase Index 3.3 CK-MB (CK-2) 9.556 H CK-MB (CK-2) Rel Index Cancelled Troponin I 1.53 H* D B-Natriuretic Peptide Total Protein 5.5 L Albumin 2.4 L Opiates Screen Methadone Screen Barbiturate Screen Phencyclidine Screen Ur Amphetamines Screen MDMA (Ecstasy) Screen Benzodiazepines Screen Cocaine Screen U Marijuana (THC) Screen 07/28/16 07/28/16 07/28/16 08:30 09:50 15:15 WBC RBC Hgb Hct MCV MCHC RDW Plt Count MPV Neutrophils % Lymphocytes % Monocytes % Eosinophils % Basophils % INR 1.57 H PTT (Actin FS) 23.7 L Puncture Site Right radial ABG pH 7.38 ABG pCO2 at Pt Temp 41.9 ABG pO2 at Pt Temp 80.0 ABG HCO3 24.4 ABG O2 Sat (Measured) 96.0 ABG O2 Content 14.0 L ABG Base Excess -0.1 George Test Positive O2 Delivery Device Mec.vent Oxygen Flow Rate 35% Vent Mode A/c Vent Rate 22 Mechanical Rate Esprit PEEP 5.0 Pressure Support Vent 375 Sodium Potassium Chloride Carbon Dioxide Anion Gap BUN Creatinine Creat Clearance w eGFR POC Glucometer Random Glucose Lactic Acid Calcium Phosphorus Magnesium Total Bilirubin AST ALT Alkaline Phosphatase Creatine Kinase Creatine Kinase Index CK-MB (CK-2) CK-MB (CK-2) Rel Index Troponin I B-Natriuretic Peptide Total Protein Albumin Opiates Screen Positive Methadone Screen Negative Barbiturate Screen Negative Phencyclidine Screen Negative Ur Amphetamines Screen Negative MDMA (Ecstasy) Screen Negative Benzodiazepines Screen Positive Cocaine Screen Negative U Marijuana (THC) Screen Negative Active Medications Generic Name Dose Route Start Last Admin Trade Name Freq PRN Reason Stop Dose Admin Albuterol Sulfate 1 amp 07/28/16 01:24 Ventolin 0.083% Nebulizer Soln - NEB Q4H PRN SHORT OF BREATH/WHEEZING Albuterol/Ipratropium 1 amp 07/28/16 06:00 07/28/16 13:50 Duoneb - NEB 1 amp TIDR VANESSA Administration Atorvastatin Calcium 80 mg 07/28/16 22:00 Lipitor - PO HS VANESSA Propofol 100 mls @ 2.79 mls/hr 07/27/16 22:15 07/27/16 23:58 Diprivan - IVPB 5.579 mls/hr TITR VANESSA Administration Protocol 5 MCG/KG/MIN Fentanyl 500 mcg/ Dextrose 100 mls @ 10 mls/hr 07/28/16 00:30 07/28/16 13:50 IJ 07/29/16 00:29 5 mls/hr TITR VANESSA Administration 50 MCG/HR Midazolam HCl 100 mg/ Sodium 100 mls @ 2 mls/hr 07/28/16 00:30 07/28/16 01:54 Chloride IVPB 2 mls/hr TITR VANESSA Administration Protocol 2 MG/HR Vecuronium [place] 50 mg/ 250 mls @ 22.31 mls/hr 07/28/16 00:30 07/28/16 04:38 Dextrose IVPB Not Given TITR VANESSA Protocol 0.8 MCG/KG/MIN Pantoprazole Sodium 100 mls @ 200 mls/hr 07/28/16 10:00 07/28/16 11:07 Protonix 40mg Ivpb (Pre-Docked) IVPB 200 mls/hr DAILY VANESSA Administration Ceftriaxone Sodium 100 mls @ 200 mls/hr 07/28/16 15:00 Rocephin 2gm Ivpb (Pre-Docked) IVPB DAILY VANESSA Sodium Phosphate 15 mm/ Sodium 255 mls @ 62.5 mls/hr 07/28/16 15:00 07/28/16 16 :37 Chloride IVPB 07/28/16 19:04 62.5 mls/hr ONCE ONE Administration Insulin Aspart 1 vial 07/28/16 07:00 07/28/16 11:38 Novolog Vial Sliding Scale - SQ 3 units TIDAC VANESSA Administration Protocol Levetiracetam 500 mg 07/28/16 11:30 07/28/16 11:44 Keppra Injection - IVPB 500 mg BID VANESSA Administration ASSESSMENT/PLAN: 66 year old male with significant PMH of CKD III, HTN, DM, CAD s/p ID presented to ICU after being found unresponsive by . S/P Epi x6 before ROSC. #Acute Cardiac arrest, unknown etiology (ACS vs Aspiration PNA?); long time to ROSC -stable BP off pressors thus far -intubated & sedated on Fentanyl, Versed, Propofol -Hypothermic protocol started last night, patient on paralytic as well -Trending troponins -ECHO -F/u ABG & CXR in AM -Keppra being given for likely anoxic brain injury -cardiology following #Possible Pneumonia, aspiration? -on Ceftriaxone -Duonebs QIDR, Albuterol PRN -cultures pending -ID consult appreciated #Acute on Chronic Renal Failure -holding IVF at present -continue to monitor electrolytes -avoid nephrotoxic meds #Hyperlipidemia -continue Lipitor #DM -ISS w/ BGM Prophylaxis/FEN -SCD, PPI Visit type - Emergency Visit Emergency Visit: Yes ED Registration Date: 07/27/16 Care time: The patient presented to the Emergency Department on the above date and was hospitalized for further evaluation of their emergent condition. - New Patient This patient is new to me today: Yes Date on this admission: 07/28/16 - Critical Care Critical Care patient: Yes Total Critical Care Time (in minutes): 45 Critical Care Statement: The care of this patient involved high complexity decision making to prevent further life threatening deterioration of the patient 's condition and/or to evalute & treat vital organ system(s) failure or risk of failure.
[2016-07-28 17:07] LABS: BASOPHIL 0.2 % (0-2.0); EOSINOPHIL 0.1 % (0-4.5); MCH 30.7 pg (25.7-33.7); MCHC 34.4 g/dl (32.0-35.9); MEAN CELL VOLUME 89.1 fl (80-96); MEAN PLT VOLUME 8.9 fl (7.5-11.1); NEUTROPHILS 78.4 % (42.8-82.8); PLATELET COUNT 139 K/MM3 (134-434); RDW 13.3 % (11.9-15.9)
[2016-07-28 17:23] LABS: CALCIUM 7.7 mg/dL (8.5-10.1); CREATININE 1.3 mg/dL (0.7-1.3)
[2016-07-28 18:12] LABS: TROPONIN I 0.86 ng/ml (0.00-0.05)
[2016-07-28] MEDS: PROPOFOL 100 ML IVPB SCH (22:25)
[2016-07-28] MEDS: ATORVASTATIN CA 80 MG TABLET (FP) PO SCH (22:25)
[2016-07-29] MEDS: VECURONIUM BROMIDE 50 MG in DEXTROSE 5%-WATER - 250 ML IVPB SCH (03:32)
[2016-07-29] MEDS: MIDAZOLAM 100 MG in SODIUM CHLORIDE 100 ML IVPB SCH ×2 (03:34→15:53)
[2016-07-29 06:30] LABS: BASOPHIL 0.2 % (0-2.0); EOSINOPHIL 0.3 % (0-4.5); MCH 30.4 pg (25.7-33.7); MCHC 33.9 g/dl (32.0-35.9); MEAN CELL VOLUME 89.6 fl (80-96); MEAN PLT VOLUME 9.2 fl (7.5-11.1); NEUTROPHILS 78.6 % (42.8-82.8); PLATELET COUNT 122 K/MM3 (134-434); RDW 13.5 % (11.9-15.9); WHITE BLOOD COUNT 6.2 K/mm3 (4.0-10.0)
[2016-07-29 06:46] LABS: TROPONIN I 0.33 ng/ml (0.00-0.05)
[2016-07-29] MEDS: ALBUTEROL SO4 2.5/IPRATROPIUM 0.5 INH SOL 3 ML VIAL.NEB. NEB SCH ×3 (06:50→22:37)
[2016-07-29 06:56] LABS: ALBUMIN 2.2 g/dl (3.4-5.0); ALK PHOS 88 U/L (45-117); ANION GAP 12 (8-16); BILIRUBIN,TOTAL 0.4 mg/dL (0.2-1.0); CALCIUM 7.7 mg/dL (8.5-10.1); CO2 25 mmol/L (21-32); CREATININE 1.1 mg/dL (0.7-1.3); GLUCOSE,RANDOM 214 mg/dL (74-106); MAGNESIUM 1.8 mg/dL (1.8-2.4); PHOSPHOROUS 3.4 mg/dL (2.5-4.9); SGOT/AST 67 U/L (15-37); SGPT/ALT 43 U/L (12-78); TOT PROT 5.3 g/dl (6.4-8.2)
[2016-07-29] MEDS: INSULIN SLIDING SCALE (NOVOLOG) 1 VIAL SQ SCH ×3 (06:58→16:07)
[2016-07-29 07:34] LABS: ALLENS TEST POSITIVE; ART PUNCT SITE RIGHT RADIAL; ARTERIAL BLD GAS O2 SATURATION 94.1 % (90-98.9); ARTERIAL BLOOD GAS BASE EXCESS -2.2 meq/l (-2-2); PT. ON O2? YES
[2016-07-29 07:35] LABS: ARTERIAL BLOOD GAS PO2 75.9 mmHg (80-100); ARTERIAL BLOOD GAS pH 7.34 (7.35-7.45); LPM/O2% 35%; MECH. VENT. ESPRIT; TYPE OF O2 MEC.VENT; VENT RATE 22; VT/PRESS 375
--- NOTE | 2016-07-29 09:22 | PN ---
Progress Note (short form) - Note Progress Note: Subjective Patient seen and examined in ICU. Chart reviewed. Sedated on vent. Objective Last Vital Signs Temp Pulse Resp BP Pulse Ox 94.7 F L 96 H 22 132/65 100 07/29/16 07:00 07/29/16 07:00 07/29/16 07:00 07/29/16 07:00 07/28/16 21:00 Labs: CBC, BMP 07/29/16 05:10 07/29/16 05:10 Physical Exam Constitutional: Yes: No Distress, Other (intubated) Cardiovascular: Yes: Regular Rate and Rhythm Respiratory: Yes: Diminished Gastrointestinal: Yes: Normal Bowel Sounds, Soft, Abdomen, Obese. No: Distention, Tenderness Edema: No Neurological: Yes: Other (intubated , sedated) Assessment and Plan S/p cardiac arrest positive strep pneumonia in urine DM COPD renal insufficiency CAD Meds reviewed Continue present care Abx CT head/abdomen Neurology consult Discussed with patient's and daughter yesterday Discussed with nursing staff as well as ICU resident as well as Dr. Mcgovern Will follow Critical care time 35 min Documentation prepared by Pooja Valdes, acting as a biomedical specialist for Padma Woodruff MD.
[2016-07-29] MEDS ORDERED: AZITHROMYCIN IVPB 250 MG in DEXTROSE 5%-WATER - 250 ML IVPB SCH (10:00)
--- NOTE | 2016-07-29 10:03 | PN ---
Progress Note (short form) - Note Progress Note: S: 66 year old male, with history of CAD, s/p DE, cardiac arrest, hypertension, COPD, tobacco abuse, diabetes mellitus. Patient intubated and unresponsive. Shows decerebrate movements. Active Medications Generic Name Dose Route Start Last Admin Trade Name Freq PRN Reason Stop Dose Admin Albuterol Sulfate 1 amp 07/28/16 01:24 Ventolin 0.083% Nebulizer Soln - NEB Q4H PRN SHORT OF BREATH/WHEEZING Albuterol/Ipratropium 1 amp 07/28/16 06:00 07/29/16 06:50 Duoneb - NEB 1 amp TIDR VANESSA Administration Atorvastatin Calcium 80 mg 07/28/16 22:00 07/28/16 22:25 Lipitor - PO 80 mg HS VANESSA Administration Propofol 100 mls @ 2.79 mls/hr 07/27/16 22:15 07/29/16 08:30 Diprivan - IVPB 0 mcg/kg/min TITR VANESSA Titration Protocol 5 MCG/KG/MIN Midazolam HCl 100 mg/ Sodium 100 mls @ 2 mls/hr 07/28/16 00:30 07/29/16 03:34 Chloride IVPB Not Given TITR VANESSA Protocol 2 MG/HR Vecuronium [place] 50 mg/ 250 mls @ 22.31 mls/hr 07/28/16 00:30 07/29/16 03:32 Dextrose IVPB 22.31 mls/hr TITR VANESSA Administration Protocol 0.8 MCG/KG/MIN Pantoprazole Sodium 100 mls @ 200 mls/hr 07/28/16 10:00 07/28/16 11:07 Protonix 40mg Ivpb (Pre-Docked) IVPB 200 mls/hr DAILY VANESSA Administration Ceftriaxone Sodium 100 mls @ 200 mls/hr 07/28/16 15:00 Rocephin 2gm Ivpb (Pre-Docked) IVPB DAILY VANESSA Insulin Aspart 1 vial 07/28/16 07:00 07/29/16 06:58 Novolog Vial Sliding Scale - SQ 3 units TIDAC VANESSA Administration Protocol Levetiracetam 500 mg 07/28/16 11:30 07/28/16 22:25 Keppra Injection - IVPB 500 mg BID VANESSA Administration O: 66 year old male remains comatose post arrest. Last Vital Signs Temp Pulse Resp BP Pulse Ox 94.7 F L 96 H 22 132/65 100 07/29/16 07:00 07/29/16 07:00 07/29/16 07:00 07/29/16 07:00 07/28/16 21:00 Neck: Supple, no JVD, negative HJR, carotids were equal and upstrokes were normal, no thyromegaly appreciated. Heart: PMI was in the 5th intercostal space, no heaves or thrills, S1 and S2 were normal. No murmurs or gallops were appreciated. Lungs: Clear on auscultation bilaterally. Abdomen: Soft, no hepatosplenomegaly appreciated, and no palpable masses were felt. Extremities: No dependent edema. DP and PT could not be palpated. CBC, BMP 07/29/16 05:10 07/29/16 05:10 Laboratory Results - last 24 hr 07/28/16 07/28/16 07/28/16 11:37 15:15 16:00 WBC RBC Hgb Hct MCV MCHC RDW Plt Count MPV Neutrophils % Lymphocytes % Monocytes % Eosinophils % Basophils % Puncture Site ABG pH ABG pCO2 at Pt Temp ABG pO2 at Pt Temp ABG HCO3 ABG O2 Sat (Measured) ABG O2 Content ABG Base Excess George Test O2 Delivery Device Oxygen Flow Rate Vent Mode Vent Rate Mechanical Rate PEEP Pressure Support Vent Sodium Potassium Chloride Carbon Dioxide Anion Gap BUN Creatinine Creat Clearance w eGFR POC Glucometer [phone] Random Glucose Lactic Acid Calcium Phosphorus Magnesium Total Bilirubin AST ALT Alkaline Phosphatase Creatine Kinase 244 Creatine Kinase Index CK-MB (CK-2) CK-MB (CK-2) Rel Index Troponin I 0.86 H* D Total Protein Albumin Opiates Screen Positive Methadone Screen Negative Barbiturate Screen Negative Phencyclidine Screen Negative Ur Amphetamines Screen Negative MDMA (Ecstasy) Screen Negative Benzodiazepines Screen Positive Cocaine Screen Negative U Marijuana (THC) Screen Negative 07/28/16 07/28/16 07/28/16 16:00 16:15 16:15 WBC 7.0 RBC 3.62 L Hgb 11.1 L Hct 32.2 L MCV 89.1 MCHC 34.4 RDW 13.3 Plt Count 139 MPV 8.9 Neutrophils % 78.4 Lymphocytes % 10.6 D Monocytes % 10.7 H Eosinophils % 0.1 Basophils % 0.2 Puncture Site ABG pH ABG pCO2 at Pt Temp ABG pO2 at Pt Temp ABG HCO3 ABG O2 Sat (Measured) ABG O2 Content ABG Base Excess George Test O2 Delivery Device Oxygen Flow Rate Vent Mode Vent Rate Mechanical Rate PEEP Pressure Support Vent Sodium 138 Potassium 3.6 Chloride 101 Carbon Dioxide 28 Anion Gap 9 BUN 23 H Creatinine 1.3 D Creat Clearance w eGFR POC Glucometer Random Glucose 196 H Lactic Acid Calcium 7.7 L Phosphorus Magnesium Total Bilirubin AST ALT Alkaline Phosphatase Creatine Kinase Creatine Kinase Index CK-MB (CK-2) CK-MB (CK-2) Rel Index Cancelled Troponin I Total Protein Albumin Opiates Screen Methadone Screen Barbiturate Screen Phencyclidine Screen Ur Amphetamines Screen MDMA (Ecstasy) Screen Benzodiazepines Screen Cocaine Screen U Marijuana (THC) Screen 07/28/16 07/29/16 07/29/16 16:48 05:10 05:10 WBC 6.2 RBC 3.94 L Hgb 12.0 Hct 35.3 L MCV 89.6 MCHC 33.9 RDW 13.5 Plt Count 122 L MPV 9.2 Neutrophils % 78.6 Lymphocytes % 10.0 Monocytes % 10.9 H Eosinophils % 0.3 D Basophils % 0.2 Puncture Site ABG pH ABG pCO2 at Pt Temp ABG pO2 at Pt Temp ABG HCO3 ABG O2 Sat (Measured) ABG O2 Content ABG Base Excess George Test O2 Delivery Device Oxygen Flow Rate Vent Mode Vent Rate Mechanical Rate PEEP Pressure Support Vent Sodium 137 Potassium 3.8 Chloride 100 Carbon Dioxide 25 Anion Gap 12 BUN 20 H Creatinine 1.1 Creat Clearance w eGFR > 60 POC Glucometer [phone] Random Glucose 214 H Lactic Acid Calcium 7.7 L Phosphorus 3.4 D Magnesium 1.8 Total Bilirubin 0.4 D AST 67 H D ALT 43 Alkaline Phosphatase 88 Creatine Kinase Creatine Kinase Index CK-MB (CK-2) CK-MB (CK-2) Rel Index Troponin I Total Protein 5.3 L Albumin 2.2 L Opiates Screen Methadone Screen Barbiturate Screen Phencyclidine Screen Ur Amphetamines Screen MDMA (Ecstasy) Screen Benzodiazepines Screen Cocaine Screen U Marijuana (THC) Screen 07/29/16 07/29/16 07/29/16 05:10 05:10 05:10 WBC RBC Hgb Hct MCV MCHC RDW Plt Count MPV Neutrophils % Lymphocytes % Monocytes % Eosinophils % Basophils % Puncture Site ABG pH ABG pCO2 at Pt Temp ABG pO2 at Pt Temp ABG HCO3 ABG O2 Sat (Measured) ABG O2 Content ABG Base Excess George Test O2 Delivery Device Oxygen Flow Rate Vent Mode Vent Rate Mechanical Rate PEEP Pressure Support Vent Sodium Potassium Chloride Carbon Dioxide Anion Gap BUN Creatinine Creat Clearance w eGFR POC Glucometer Random Glucose Lactic Acid 1.344 Calcium Phosphorus Magnesium Total Bilirubin AST ALT Alkaline Phosphatase Creatine Kinase 249 Creatine Kinase Index 3.2 CK-MB (CK-2) 8.029 H CK-MB (CK-2) Rel Index Cancelled Troponin I 0.33 H D Total Protein Albumin Opiates Screen Methadone Screen Barbiturate Screen Phencyclidine Screen Ur Amphetamines Screen MDMA (Ecstasy) Screen Benzodiazepines Screen Cocaine Screen U Marijuana (THC) Screen 07/29/16 07/29/16 05:23 07:25 WBC RBC Hgb Hct MCV MCHC RDW Plt Count MPV Neutrophils % Lymphocytes % Monocytes % Eosinophils % Basophils % Puncture Site Right radial ABG pH 7.34 L ABG pCO2 at Pt Temp 44.1 ABG pO2 at Pt Temp 75.9 L ABG HCO3 23.0 ABG O2 Sat (Measured) 94.1 ABG O2 Content 15.5 ABG Base Excess -2.2 L George Test Positive O2 Delivery Device Mec.vent Oxygen Flow Rate 35% Vent Mode A/c Vent Rate 22 Mechanical Rate Esprit PEEP 5.0 Pressure Support Vent 375 Sodium Potassium Chloride Carbon Dioxide Anion Gap BUN Creatinine Creat Clearance w eGFR POC Glucometer [phone] Random Glucose Lactic Acid Calcium Phosphorus Magnesium Total Bilirubin AST ALT Alkaline Phosphatase Creatine Kinase Creatine Kinase Index CK-MB (CK-2) CK-MB (CK-2) Rel Index Troponin I Total Protein Albumin Opiates Screen Methadone Screen Barbiturate Screen Phencyclidine Screen Ur Amphetamines Screen MDMA (Ecstasy) Screen Benzodiazepines Screen Cocaine Screen U Marijuana (THC) Screen ECG 07/27/16 Sinus tachycardia, intra atrial conduction abnormality, right axis deviation, right bundle branch block, possible left posterior amanda block. Impression: 1. S/P cardio pulmonary arrest, etiology: a. unclear, possibly ischemic b. Pulmonary embolism needs to be considered especially in the presence of right bundle branch. 2. Right bundle branch block 3. History of coronary artery disease 4. Coma secondary to anoxic encephelapothy 5. COPD 6. History of diabetes mellitus Recommendations: 1. Follow up cardiac enzymes. 2. Follow up ECG. 3. Supportive care. Prognosis: Grave Attestation: Documentation prepared by Vini Gordon, acting as diagnostic medical sonographer for Humberto Mcconnell MD.
[2016-07-29] MEDS: levETIRAcetam 500 MG/5 ML INJECTION VIAL IVPB SCH (10:04)
[2016-07-29] MEDS: PANTOPRAZOLE SODIUM 100 ML IVPB SCH (10:04)
[2016-07-29] MEDS: CEFTRIAXONE 100 ML IVPB SCH (10:05)
--- NOTE | 2016-07-29 11:52 | PN ---
Teaching Attending Note Name of Resident: Tramaine Sesay ATTENDING PHYSICIAN STATEMENT I saw and evaluated the patient. I reviewed the resident's note and discussed the case with the resident. I agree with the resident's findings and plan as documented. SUBJECTIVE: unresponsive ventilator OBJECTIVE: Vital Signs Period Temp Pulse Resp BP Sys/Mercer Pulse Ox Last 24 Hr 89.8 F-95.0 F 60-112 22-31 115-152/59-72 98-100 cor-rrr lungs decreased bs at bases abd soft,nt ext no edema CBC, BMP 07/29/16 05:10 07/29/16 05:10 Microbiology 07/28/16 01:00 Sputum - Endotrachea Suction/Ventilator Gram Stain - Final 07/28/16 01:00 Sputum - Endotrachea Suction/Ventilator Sputum Culture - Preliminary NORMAL RESPIRATORY WILBER 07/27/16 22:45 Urine - Urine Clean Catch Urine Culture - Final NO GROWTH OBTAINED 07/28/16 00:00 Blood - Peripheral Venous Blood Culture - Preliminary NO GROWTH OBTAINED AFTER 24 HOURS, INCUBATION TO CONTINUE FOR 4 DAYS. 07/27/16 22:04 Blood - Peripheral Venous Blood Culture - Preliminary NO GROWTH OBTAINED AFTER 24 HOURS, INCUBATION TO CONTINUE FOR 4 DAYS. 07/28/16 01:00 Nasopharyngeal Swab Respiratory Virus Panel - Preliminary 07/28/16 01:00 Urine For Antigen Detection Legionella Antigen - Final 07/28/16 01:00 Urine For Antigen Detection Streptococcus pneumoniae Antigen (M - Final 07/28/16 01:00 Nasopharyngeal Swab Influenza Types A,B Antigen (JOE) - Final 07/28/16 01:00 Nasopharyngeal Swab - Final cxray patchy infiltrates ASSESSMENT AND PLAN: s/p arrest positive pneumococcal antigen- ?pneumococcal pneumonia continue rocephin further care per ICU
--- NOTE | 2016-07-29 12:19 | PN ---
Progress Note (short form) - Note Progress Note: Renal follow up for CKD Pt seen and examined at the bedside on the Vent off sedation, on keppra no overnight events off cooling Vital Signs Temperature 99.0 F 07/29/16 12:00 Pulse Rate 121 H 07/29/16 12:00 Respiratory Rate 35 H 07/29/16 12:06 Blood Pressure 129/69 07/29/16 12:00 O2 Sat by Pulse Oximetry (%) 97 07/29/16 12:06 Intake & Output 07/26/16 07/27/16 07/28/16 07/29/16 23:59 23:59 23:59 23:59 Intake Total 3867 1048.9 Output Total 1400 350 Balance 2467 698.9 Weight 205 lb 148 lb 4.8 oz 156 lb 11.979 oz Gen: Intubated HEENT: NC/AT, ET tube in place CVS: RRR, No M/R Lungs: Dec BS lung bases, no rales Abd: soft NT/ND Ext: No edema, clubbing or cyanosis : no bladder distension Neuro: Sedated CBC, BMP 07/29/16 05:10 07/29/16 05:10 Laboratory Tests 07/29/16 05:10 Calcium 7.7 L Phosphorus 3.4 D Magnesium 1.8 Albumin 2.2 L Current Medications Albuterol Sulfate (Ventolin 0.083% Nebulizer Soln -) 1 amp NEB Q4H PRN PRN Reason: SHORT OF BREATH/WHEEZING Albuterol/Ipratropium (Duoneb -) 1 amp NEB TIDR VANESSA Last Admin: 07/29/16 06:50 Dose: 1 amp Atorvastatin Calcium (Lipitor -) 80 mg PO HS VANESSA Last Admin: 07/28/16 22:25 Dose: 80 mg Propofol (Diprivan -) 100 mls @ 2.79 mls/hr IVPB TITR VANESSA; 5 MCG/KG/MIN PRN Reason: Protocol Last Titration: 07/29/16 08:30 Dose: 0 mcg/kg/min Midazolam HCl 100 mg/ Sodium (Chloride) 100 mls @ 2 mls/hr IVPB TITR VANESSA; 2 MG/ HR PRN Reason: Protocol Last Admin: 07/29/16 03:34 Dose: Not Given Pantoprazole Sodium (Protonix 40mg Ivpb (Pre-Docked)) 100 mls @ 200 mls/hr IVPB DAILY VANESSA Last Admin: 07/29/16 10:04 Dose: 200 mls/hr Ceftriaxone Sodium (Rocephin 2gm Ivpb (Pre-Docked)) 100 mls @ 200 mls/hr IVPB DAILY [facility] Last Admin: 07/29/16 10:05 Dose: 200 mls/hr Insulin Aspart (Novolog Vial Sliding Scale -) 1 vial SQ TIDAC VANESSA PRN Reason: Protocol Last Admin: 07/29/16 10:21 Dose: 3 units A/P 66 year old Gentleman with PMhx of CKD Stage 3 (baseline Cr 2, eGFR 33), Hypertension, DM, CAD s/p [place], PVD who presented s/p Cardiac Arrest at home s/p resuscitation and now in ICU on Vent. #Cardiac Arrest Continue supportive care as per ICU Vent support off cooling acess mental status off sedation #CKD stage 3 Renal function appears stable and at baseline Continue to trend BUN/Cr start oral feeds when possible #Hx of Hypertension BP stable off Antihypertensives #Anemia Trend CBC #Suspected PNA continue emperic Abx f/u cultures Ham Patel DO
--- NOTE | 2016-07-29 12:31 | PN ---
Teaching Attending Note Name of Resident: Inderjit Araiza ATTENDING PHYSICIAN STATEMENT I saw and evaluated the patient. I reviewed the resident's note and discussed the case with the resident. I agree with the resident's findings and plan as documented. SUBJECTIVE: Patient seen and examined in the ICU. Intubated off sedation. Hemodynamics stable off pressors. No significant improvement. AC mode of vent. Intake & Output 07/26/16 07/27/16 07/28/16 07/29/16 23:59 23:59 23:59 23:59 Intake Total 3867 1048.9 Output Total 1400 350 Balance 2467 698.9 Weight 205 lb 148 lb 4.8 oz 156 lb 11.979 oz Last Vital Signs Temp Pulse Resp BP Pulse Ox 99.0 F 121 H 35 H 129/69 97 07/29/16 12:00 07/29/16 12:00 07/29/16 12:06 07/29/16 12:00 07/29/16 12:06 Laboratory Results - last 24 hr 07/28/16 07/28/16 07/28/16 11:37 15:15 16:00 WBC RBC Hgb Hct MCV MCHC RDW Plt Count MPV Neutrophils % Lymphocytes % Monocytes % Eosinophils % Basophils % Puncture Site ABG pH ABG pCO2 at Pt Temp ABG pO2 at Pt Temp ABG HCO3 ABG O2 Sat (Measured) ABG O2 Content ABG Base Excess George Test O2 Delivery Device Oxygen Flow Rate Vent Mode Vent Rate Mechanical Rate PEEP Pressure Support Vent Sodium Potassium Chloride Carbon Dioxide Anion Gap BUN Creatinine Creat Clearance w eGFR POC Glucometer [phone] Random Glucose Lactic Acid Calcium Phosphorus Magnesium Total Bilirubin AST ALT Alkaline Phosphatase Creatine Kinase 244 Creatine Kinase Index CK-MB (CK-2) CK-MB (CK-2) Rel Index Troponin I 0.86 H* D Total Protein Albumin Opiates Screen Positive Methadone Screen Negative Barbiturate Screen Negative Phencyclidine Screen Negative Ur Amphetamines Screen Negative MDMA (Ecstasy) Screen Negative Benzodiazepines Screen Positive Cocaine Screen Negative U Marijuana (THC) Screen Negative 07/28/16 07/28/16 07/28/16 16:00 16:15 16:15 WBC 7.0 RBC 3.62 L Hgb 11.1 L Hct 32.2 L MCV 89.1 MCHC 34.4 RDW 13.3 Plt Count 139 MPV 8.9 Neutrophils % 78.4 Lymphocytes % 10.6 D Monocytes % 10.7 H Eosinophils % 0.1 Basophils % 0.2 Puncture Site ABG pH ABG pCO2 at Pt Temp ABG pO2 at Pt Temp ABG HCO3 ABG O2 Sat (Measured) ABG O2 Content ABG Base Excess George Test O2 Delivery Device Oxygen Flow Rate Vent Mode Vent Rate Mechanical Rate PEEP Pressure Support Vent Sodium 138 Potassium 3.6 Chloride 101 Carbon Dioxide 28 Anion Gap 9 BUN 23 H Creatinine 1.3 D Creat Clearance w eGFR POC Glucometer Random Glucose 196 H Lactic Acid Calcium 7.7 L Phosphorus Magnesium Total Bilirubin AST ALT Alkaline Phosphatase Creatine Kinase Creatine Kinase Index CK-MB (CK-2) CK-MB (CK-2) Rel Index Cancelled Troponin I Total Protein Albumin Opiates Screen Methadone Screen Barbiturate Screen Phencyclidine Screen Ur Amphetamines Screen MDMA (Ecstasy) Screen Benzodiazepines Screen Cocaine Screen U Marijuana (THC) Screen 07/28/16 07/29/16 07/29/16 16:48 05:10 05:10 WBC 6.2 RBC 3.94 L Hgb 12.0 Hct 35.3 L MCV 89.6 MCHC 33.9 RDW 13.5 Plt Count 122 L MPV 9.2 Neutrophils % 78.6 Lymphocytes % 10.0 Monocytes % 10.9 H Eosinophils % 0.3 D Basophils % 0.2 Puncture Site ABG pH ABG pCO2 at Pt Temp ABG pO2 at Pt Temp ABG HCO3 ABG O2 Sat (Measured) ABG O2 Content ABG Base Excess George Test O2 Delivery Device Oxygen Flow Rate Vent Mode Vent Rate Mechanical Rate PEEP Pressure Support Vent Sodium 137 Potassium 3.8 Chloride 100 Carbon Dioxide 25 Anion Gap 12 BUN 20 H Creatinine 1.1 Creat Clearance w eGFR > 60 POC Glucometer [phone] Random Glucose 214 H Lactic Acid Calcium 7.7 L Phosphorus 3.4 D Magnesium 1.8 Total Bilirubin 0.4 D AST 67 H D ALT 43 Alkaline Phosphatase 88 Creatine Kinase Creatine Kinase Index CK-MB (CK-2) CK-MB (CK-2) Rel Index Troponin I Total Protein 5.3 L Albumin 2.2 L Opiates Screen Methadone Screen Barbiturate Screen Phencyclidine Screen Ur Amphetamines Screen MDMA (Ecstasy) Screen Benzodiazepines Screen Cocaine Screen U Marijuana (THC) Screen 02/24/17 02/24/17 02/24/17 05:10 05:10 05:10 WBC RBC Hgb Hct MCV MCHC RDW Plt Count MPV Neutrophils % Lymphocytes % Monocytes % Eosinophils % Basophils % Puncture Site ABG pH ABG pCO2 at Pt Temp ABG pO2 at Pt Temp ABG HCO3 ABG O2 Sat (Measured) ABG O2 Content ABG Base Excess George Test O2 Delivery Device Oxygen Flow Rate Vent Mode Vent Rate Mechanical Rate PEEP Pressure Support Vent Sodium Potassium Chloride Carbon Dioxide Anion Gap BUN Creatinine Creat Clearance w eGFR POC Glucometer Random Glucose Lactic Acid 1.344 Calcium Phosphorus Magnesium Total Bilirubin AST ALT Alkaline Phosphatase Creatine Kinase 249 Creatine Kinase Index 3.2 CK-MB (CK-2) 8.029 H CK-MB (CK-2) Rel Index Cancelled Troponin I 0.33 H D Total Protein Albumin Opiates Screen Methadone Screen Barbiturate Screen Phencyclidine Screen Ur Amphetamines Screen MDMA (Ecstasy) Screen Benzodiazepines Screen Cocaine Screen U Marijuana (THC) Screen 07/29/16 07/29/16 07/29/16 05:23 07:25 10:14 WBC RBC Hgb Hct MCV MCHC RDW Plt Count MPV Neutrophils % Lymphocytes % Monocytes % Eosinophils % Basophils % Puncture Site Right radial ABG pH 7.34 L ABG pCO2 at Pt Temp 44.1 ABG pO2 at Pt Temp 75.9 L ABG HCO3 23.0 ABG O2 Sat (Measured) 94.1 ABG O2 Content 15.5 ABG Base Excess -2.2 L George Test Positive O2 Delivery Device Mec.vent Oxygen Flow Rate 35% Vent Mode A/c Vent Rate 22 Mechanical Rate Esprit PEEP 5.0 Pressure Support Vent 375 Sodium Potassium Chloride Carbon Dioxide Anion Gap BUN Creatinine Creat Clearance w eGFR POC Glucometer [phone] Random Glucose Lactic Acid Calcium Phosphorus Magnesium Total Bilirubin AST ALT Alkaline Phosphatase Creatine Kinase Creatine Kinase Index CK-MB (CK-2) CK-MB (CK-2) Rel Index Troponin I Total Protein Albumin Opiates Screen Methadone Screen Barbiturate Screen Phencyclidine Screen Ur Amphetamines Screen MDMA (Ecstasy) Screen Benzodiazepines Screen Cocaine Screen U Marijuana (THC) Screen Constitutional: Yes: Intubated and poorly responsive Eyes: Yes: Other (pupils sluggish) HENT: Yes: Other (NGT with dark residual) Neck: Yes: WNL Cardiovascular: Yes: S1, S2, Other (sinus on tele) Respiratory: Yes: Diminished at the bases, bilateral rhonchi, Intubated / Ventilated Gastrointestinal: Yes: Normal Bowel Sounds, Soft, Abdomen, Obese, Distention ...Rectal Exam: Yes: Deferred Renal/: Yes: [place] Present Musculoskeletal: Yes: WNL Extremities: Yes: WNL Edema: No Peripheral Pulses WNL: Yes (+1 bilateral pedal pulses) Integumentary: Yes: Other (red burn [place] on lower sternal region approximately 3cm in diameter) Neurological: Yes: Unresponsive Labs: Laboratory Results - last 24 hr 07/28/16 07/28/16 07/28/16 11:37 15:15 16:00 WBC RBC Hgb Hct MCV MCHC RDW Plt Count MPV Neutrophils % Lymphocytes % Monocytes % Eosinophils % Basophils % Puncture Site ABG pH ABG pCO2 at Pt Temp ABG pO2 at Pt Temp ABG HCO3 ABG O2 Sat (Measured) ABG O2 Content ABG Base Excess George Test O2 Delivery Device Oxygen Flow Rate Vent Mode Vent Rate Mechanical Rate PEEP Pressure Support Vent Sodium Potassium Chloride Carbon Dioxide Anion Gap BUN Creatinine Creat Clearance w eGFR POC Glucometer [phone] Random Glucose Lactic Acid Calcium Phosphorus Magnesium Total Bilirubin AST ALT Alkaline Phosphatase Creatine Kinase 244 Creatine Kinase Index CK-MB (CK-2) CK-MB (CK-2) Rel Index Troponin I 0.86 H* D Total Protein Albumin Opiates Screen Positive Methadone Screen Negative Barbiturate Screen Negative Phencyclidine Screen Negative Ur Amphetamines Screen Negative MDMA (Ecstasy) Screen Negative Benzodiazepines Screen Positive Cocaine Screen Negative U Marijuana (THC) Screen Negative 07/28/16 07/28/16 07/28/16 16:00 16:15 16:15 WBC 7.0 RBC 3.62 L Hgb 11.1 L Hct 32.2 L MCV 89.1 MCHC 34.4 RDW 13.3 Plt Count 139 MPV 8.9 Neutrophils % 78.4 Lymphocytes % 10.6 D Monocytes % 10.7 H Eosinophils % 0.1 Basophils % 0.2 Puncture Site ABG pH ABG pCO2 at Pt Temp ABG pO2 at Pt Temp ABG HCO3 ABG O2 Sat (Measured) ABG O2 Content ABG Base Excess George Test O2 Delivery Device Oxygen Flow Rate Vent Mode Vent Rate Mechanical Rate PEEP Pressure Support Vent Sodium 138 Potassium 3.6 Chloride 101 Carbon Dioxide 28 Anion Gap 9 BUN 23 H Creatinine 1.3 D Creat Clearance w eGFR POC Glucometer Random Glucose 196 H Lactic Acid Calcium 7.7 L Phosphorus Magnesium Total Bilirubin AST ALT Alkaline Phosphatase Creatine Kinase Creatine Kinase Index CK-MB (CK-2) CK-MB (CK-2) Rel Index Cancelled Troponin I Total Protein Albumin Opiates Screen Methadone Screen Barbiturate Screen Phencyclidine Screen Ur Amphetamines Screen MDMA (Ecstasy) Screen Benzodiazepines Screen Cocaine Screen U Marijuana (THC) Screen 07/28/16 07/29/16 07/29/16 16:48 05:10 05:10 WBC 6.2 RBC 3.94 L Hgb 12.0 Hct 35.3 L MCV 89.6 MCHC 33.9 RDW 13.5 Plt Count 122 L MPV 9.2 Neutrophils % 78.6 Lymphocytes % 10.0 Monocytes % 10.9 H Eosinophils % 0.3 D Basophils % 0.2 Puncture Site ABG pH ABG pCO2 at Pt Temp ABG pO2 at Pt Temp ABG HCO3 ABG O2 Sat (Measured) ABG O2 Content ABG Base Excess George Test O2 Delivery Device Oxygen Flow Rate Vent Mode Vent Rate Mechanical Rate PEEP Pressure Support Vent Sodium 137 Potassium 3.8 Chloride 100 Carbon Dioxide 25 Anion Gap 12 BUN 20 H Creatinine 1.1 Creat Clearance w eGFR > 60 POC Glucometer [phone] Random Glucose 214 H Lactic Acid Calcium 7.7 L Phosphorus 3.4 D Magnesium 1.8 Total Bilirubin 0.4 D AST 67 H D ALT 43 Alkaline Phosphatase 88 Creatine Kinase Creatine Kinase Index CK-MB (CK-2) CK-MB (CK-2) Rel Index Troponin I Total Protein 5.3 L Albumin 2.2 L Opiates Screen Methadone Screen Barbiturate Screen Phencyclidine Screen Ur Amphetamines Screen MDMA (Ecstasy) Screen Benzodiazepines Screen Cocaine Screen U Marijuana (THC) Screen 07/29/16 07/29/16 07/29/16 05:10 05:10 05:10 WBC RBC Hgb Hct MCV MCHC RDW Plt Count MPV Neutrophils % Lymphocytes % Monocytes % Eosinophils % Basophils % Puncture Site ABG pH ABG pCO2 at Pt Temp ABG pO2 at Pt Temp ABG HCO3 ABG O2 Sat (Measured) ABG O2 Content ABG Base Excess George Test O2 Delivery Device Oxygen Flow Rate Vent Mode Vent Rate Mechanical Rate PEEP Pressure Support Vent Sodium Potassium Chloride Carbon Dioxide Anion Gap BUN Creatinine Creat Clearance w eGFR POC Glucometer Random Glucose Lactic Acid 1.344 Calcium Phosphorus Magnesium Total Bilirubin AST ALT Alkaline Phosphatase Creatine Kinase 249 Creatine Kinase Index 3.2 CK-MB (CK-2) 8.029 H CK-MB (CK-2) Rel Index Cancelled Troponin I 0.33 H D Total Protein Albumin Opiates Screen Methadone Screen Barbiturate Screen Phencyclidine Screen Ur Amphetamines Screen MDMA (Ecstasy) Screen Benzodiazepines Screen Cocaine Screen U Marijuana (THC) Screen 07/29/16 07/29/16 07/29/16 05:23 07:25 10:14 WBC RBC Hgb Hct MCV MCHC RDW Plt Count MPV Neutrophils % Lymphocytes % Monocytes % Eosinophils % Basophils % Puncture Site Right radial ABG pH 7.34 L ABG pCO2 at Pt Temp 44.1 ABG pO2 at Pt Temp 75.9 L ABG HCO3 23.0 ABG O2 Sat (Measured) 94.1 ABG O2 Content 15.5 ABG Base Excess -2.2 L George Test Positive O2 Delivery Device Mec.vent Oxygen Flow Rate 35% Vent Mode A/c Vent Rate 22 Mechanical Rate Esprit PEEP 5.0 Pressure Support Vent 375 Sodium Potassium Chloride Carbon Dioxide Anion Gap BUN Creatinine Creat Clearance w eGFR POC Glucometer 242.73309 258.96922 Random Glucose Lactic Acid Calcium Phosphorus Magnesium Total Bilirubin AST ALT Alkaline Phosphatase Creatine Kinase Creatine Kinase Index CK-MB (CK-2) CK-MB (CK-2) Rel Index Troponin I Total Protein Albumin Opiates Screen Methadone Screen Barbiturate Screen Phencyclidine Screen Ur Amphetamines Screen MDMA (Ecstasy) Screen Benzodiazepines Screen Cocaine Screen U Marijuana (THC) Screen Assessment/Plan S/P Cardiac Arrest with prolonged ROSC Suspected SUNDAR Shock -> Cardiogenic +/- Septic COPD HTN DM (?) PNA CHF CAD Demand ischemia Acute on CKD PLAN: AC mode of vent ABX per ID Monitor off sedation ASA VTE prophylaxis Need discussions for GOC Dr Dolan CCTime 35"
[2016-07-29] MEDS ORDERED: MIDAZOLAM HCL 2 MG/2 ML SINGLE DOSE VIAL IVPUSH PRN (13:42)
--- NOTE | 2016-07-29 13:56 | PN ---
Progress Note, Physician History of Present Illness: patient seen and examined at bedside in the ICU - Current Medication List Current Medications: Active Medications Albuterol Sulfate (Ventolin 0.083% Nebulizer Soln -) 1 amp NEB Q4H PRN PRN Reason: SHORT OF BREATH/WHEEZING Albuterol/Ipratropium (Duoneb -) 1 amp NEB TIDR [facility] Last Admin: 07/29/16 06:50 Dose: 1 amp Atorvastatin Calcium (Lipitor -) 80 mg PO HS [facility] Last Admin: 07/28/16 22:25 Dose: 80 mg Propofol (Diprivan -) 100 mls @ 2.79 mls/hr IVPB TITR VANESSA; 5 MCG/KG/MIN PRN Reason: Protocol Last Titration: 07/29/16 08:30 Dose: 0 mcg/kg/min Midazolam HCl 100 mg/ Sodium (Chloride) 100 mls @ 2 mls/hr IVPB TITR VANESSA; 2 MG/ HR PRN Reason: Protocol Last Admin: 07/29/16 03:34 Dose: Not Given Pantoprazole Sodium (Protonix 40mg Ivpb (Pre-Docked)) 100 mls @ 200 mls/hr IVPB DAILY [facility] Last Admin: 07/29/16 10:04 Dose: 200 mls/hr Ceftriaxone Sodium (Rocephin 2gm Ivpb (Pre-Docked)) 100 mls @ 200 mls/hr IVPB DAILY [facility] Last Admin: 07/29/16 10:05 Dose: 200 mls/hr Insulin Aspart (Novolog Vial Sliding Scale -) 1 vial SQ TIDAC VANESSA PRN Reason: Protocol Last Admin: 07/29/16 10:21 Dose: 3 units Midazolam HCl (Versed -) 2 mg IVPUSH Q2H PRN PRN Reason: AGITATION - Objective Vital Signs: Vital Signs Temperature 99.0 F 07/29/16 12:00 Pulse Rate 121 H 07/29/16 12:00 Respiratory Rate 35 H 07/29/16 12:06 Blood Pressure 129/69 07/29/16 12:00 O2 Sat by Pulse Oximetry (%) 97 07/29/16 12:06 Constitutional: Yes: Well Nourished HENT: Yes: Atraumatic Cardiovascular: Yes: Tachycardia Respiratory: Yes: Diminished, Intubated, Mechanically Ventilated Gastrointestinal: Yes: Soft Edema: Yes (trace) Edema: LLE: Trace, RLE: Trace Neurological: Yes: Unresponsive Labs: CBC, BMP 07/29/16 05:10 07/29/16 05:10 INR, PTT INR 1.57 (0.82-1.09) H 07/28/16 08:30 - ....Imaging Chest X-ray: Report Reviewed, Image Reviewed Assessment/Plan 66M admitted to ICU s/p cardiac arrest. Cooling protocol initiated and completed. remains unresponsive anoxic brain injury streprococcal pneumonia - positive urinary antigen ICU care continue rocephin 2gm daily ABx day 2 hospital day 2 cultures pending will follow
--- NOTE | 2016-07-29 14:29 | PN ---
Physical Exam: SUBJECTIVE: Patient seen and examined at bedside in ICU this morning. Intubated and nonresponsive to verbal or tactile stimuli during sedation vacation. HR elevated to 130 & RR increased to 40's so patient was placed back on Propofol & versed as he was struggling with the work of breathing. Febrile to 102 this afternoon as well. OBJECTIVE: Vital Signs Period Temp Pulse Resp BP Sys/Mercer Pulse Ox Last 24 Hr 89.8 F-101.8 F 69-132 20-42 115-152/59-78 96-100 GENERAL: Intubated & sedated, in no acute distress HEENT: Atraumatic, PERRLA, No lymphadenopathy noted, moist membranes LUNGS: diminished breath sounds bilaterally (R>L) HEART: Regular rate and rhythm, S1, S2 without murmur, rub or gallop. ABDOMEN: Soft, nontender, nondistended, normoactive EXTREMITIES: 2+ pulses, warm, well-perfused, trace peripheral edema SKIN: Warm, dry, normal turgor, no rashes or lesions noted Laboratory Results - last 24 hr 07/28/16 07/28/16 07/28/16 11:37 15:15 16:00 WBC RBC Hgb Hct MCV MCHC RDW Plt Count MPV Neutrophils % Lymphocytes % Monocytes % Eosinophils % Basophils % Puncture Site ABG pH ABG pCO2 at Pt Temp ABG pO2 at Pt Temp ABG HCO3 ABG O2 Sat (Measured) ABG O2 Content ABG Base Excess George Test O2 Delivery Device Oxygen Flow Rate Vent Mode Vent Rate Mechanical Rate PEEP Pressure Support Vent Sodium Potassium Chloride Carbon Dioxide Anion Gap BUN Creatinine Creat Clearance w eGFR POC Glucometer [phone] Random Glucose Lactic Acid Calcium Phosphorus Magnesium Total Bilirubin AST ALT Alkaline Phosphatase Creatine Kinase 244 Creatine Kinase Index CK-MB (CK-2) CK-MB (CK-2) Rel Index Troponin I 0.86 H* D Total Protein Albumin Opiates Screen Positive Methadone Screen Negative Barbiturate Screen Negative Phencyclidine Screen Negative Ur Amphetamines Screen Negative MDMA (Ecstasy) Screen Negative Benzodiazepines Screen Positive Cocaine Screen Negative U Marijuana (THC) Screen Negative 07/28/16 07/28/16 07/28/16 16:00 16:15 16:15 WBC 7.0 RBC 3.62 L Hgb 11.1 L Hct 32.2 L MCV 89.1 MCHC 34.4 RDW 13.3 Plt Count 139 MPV 8.9 Neutrophils % 78.4 Lymphocytes % 10.6 D Monocytes % 10.7 H Eosinophils % 0.1 Basophils % 0.2 Puncture Site ABG pH ABG pCO2 at Pt Temp ABG pO2 at Pt Temp ABG HCO3 ABG O2 Sat (Measured) ABG O2 Content ABG Base Excess George Test O2 Delivery Device Oxygen Flow Rate Vent Mode Vent Rate Mechanical Rate PEEP Pressure Support Vent Sodium 138 Potassium 3.6 Chloride 101 Carbon Dioxide 28 Anion Gap 9 BUN 23 H Creatinine 1.3 D Creat Clearance w eGFR POC Glucometer Random Glucose 196 H Lactic Acid Calcium 7.7 L Phosphorus Magnesium Total Bilirubin AST ALT Alkaline Phosphatase Creatine Kinase Creatine Kinase Index CK-MB (CK-2) CK-MB (CK-2) Rel Index Cancelled Troponin I Total Protein Albumin Opiates Screen Methadone Screen Barbiturate Screen Phencyclidine Screen Ur Amphetamines Screen MDMA (Ecstasy) Screen Benzodiazepines Screen Cocaine Screen U Marijuana (THC) Screen 07/28/16 07/29/16 07/29/16 16:48 05:10 05:10 WBC 6.2 RBC 3.94 L Hgb 12.0 Hct 35.3 L MCV 89.6 MCHC 33.9 RDW 13.5 Plt Count 122 L MPV 9.2 Neutrophils % 78.6 Lymphocytes % 10.0 Monocytes % 10.9 H Eosinophils % 0.3 D Basophils % 0.2 Puncture Site ABG pH ABG pCO2 at Pt Temp ABG pO2 at Pt Temp ABG HCO3 ABG O2 Sat (Measured) ABG O2 Content ABG Base Excess George Test O2 Delivery Device Oxygen Flow Rate Vent Mode Vent Rate Mechanical Rate PEEP Pressure Support Vent Sodium 137 Potassium 3.8 Chloride 100 Carbon Dioxide 25 Anion Gap 12 BUN 20 H Creatinine 1.1 Creat Clearance w eGFR > 60 POC Glucometer 228.29894 Random Glucose 214 H Lactic Acid Calcium 7.7 L Phosphorus 3.4 D Magnesium 1.8 Total Bilirubin 0.4 D AST 67 H D ALT 43 Alkaline Phosphatase 88 Creatine Kinase Creatine Kinase Index CK-MB (CK-2) CK-MB (CK-2) Rel Index Troponin I Total Protein 5.3 L Albumin 2.2 L Opiates Screen Methadone Screen Barbiturate Screen Phencyclidine Screen Ur Amphetamines Screen MDMA (Ecstasy) Screen Benzodiazepines Screen Cocaine Screen U Marijuana (THC) Screen 02/07/29/16 07/29/16 05:10 05:10 05:10 WBC RBC Hgb Hct MCV MCHC RDW Plt Count MPV Neutrophils % Lymphocytes % Monocytes % Eosinophils % Basophils % Puncture Site ABG pH ABG pCO2 at Pt Temp ABG pO2 at Pt Temp ABG HCO3 ABG O2 Sat (Measured) ABG O2 Content ABG Base Excess George Test O2 Delivery Device Oxygen Flow Rate Vent Mode Vent Rate Mechanical Rate PEEP Pressure Support Vent Sodium Potassium Chloride Carbon Dioxide Anion Gap BUN Creatinine Creat Clearance w eGFR POC Glucometer Random Glucose Lactic Acid 1.344 Calcium Phosphorus Magnesium Total Bilirubin AST ALT Alkaline Phosphatase Creatine Kinase 249 Creatine Kinase Index 3.2 CK-MB (CK-2) 8.029 H CK-MB (CK-2) Rel Index Cancelled Troponin I 0.33 H D Total Protein Albumin Opiates Screen Methadone Screen Barbiturate Screen Phencyclidine Screen Ur Amphetamines Screen MDMA (Ecstasy) Screen Benzodiazepines Screen Cocaine Screen U Marijuana (THC) Screen 07/29/16 07/29/16 07/29/16 05:23 07:25 10:14 WBC RBC Hgb Hct MCV MCHC RDW Plt Count MPV Neutrophils % Lymphocytes % Monocytes % Eosinophils % Basophils % Puncture Site Right radial ABG pH 7.34 L ABG pCO2 at Pt Temp 44.1 ABG pO2 at Pt Temp 75.9 L ABG HCO3 23.0 ABG O2 Sat (Measured) 94.1 ABG O2 Content 15.5 ABG Base Excess -2.2 L George Test Positive O2 Delivery Device Mec.vent Oxygen Flow Rate 35% Vent Mode A/c Vent Rate 22 Mechanical Rate Esprit PEEP 5.0 Pressure Support Vent 375 Sodium Potassium Chloride Carbon Dioxide Anion Gap BUN Creatinine Creat Clearance w eGFR POC Glucometer 242.92105 258.32055 Random Glucose Lactic Acid Calcium Phosphorus Magnesium Total Bilirubin AST ALT Alkaline Phosphatase Creatine Kinase Creatine Kinase Index CK-MB (CK-2) CK-MB (CK-2) Rel Index Troponin I Total Protein Albumin Opiates Screen Methadone Screen Barbiturate Screen Phencyclidine Screen Ur Amphetamines Screen MDMA (Ecstasy) Screen Benzodiazepines Screen Cocaine Screen U Marijuana (THC) Screen Active Medications Generic Name Dose Route Start Last Admin Trade Name Freq PRN Reason Stop Dose Admin Albuterol Sulfate 1 amp 07/28/16 01:24 Ventolin 0.083% Nebulizer Soln - NEB Q4H PRN SHORT OF BREATH/WHEEZING Albuterol/Ipratropium 1 amp 07/28/16 06:00 07/29/16 06:50 Duoneb - NEB 1 amp TIDR VANESSA Administration Atorvastatin Calcium 80 mg 07/28/16 22:00 07/28/16 22:25 Lipitor - PO 80 mg HS VANESSA Administration Propofol 100 mls @ 2.79 mls/hr 07/27/16 22:15 07/29/16 14:14 Diprivan - IVPB 10 mcg/kg/min TITR VANESSA Titration Protocol 5 MCG/KG/MIN Midazolam HCl 100 mg/ Sodium 100 mls @ 2 mls/hr 07/28/16 00:30 07/29/16 03:34 Chloride IVPB Not Given TITR VANESSA Protocol 2 MG/HR Pantoprazole Sodium 100 mls @ 200 mls/hr 07/28/16 10:00 07/29/16 10:04 Protonix 40mg Ivpb (Pre-Docked) IVPB 200 mls/hr DAILY VANESSA Administration Ceftriaxone Sodium 100 mls @ 200 mls/hr 07/28/16 15:00 07/29/16 10:05 Rocephin 2gm Ivpb (Pre-Docked) IVPB 200 mls/hr DAILY VANESSA Administration Insulin Aspart 1 vial 07/28/16 07:00 07/29/16 10:21 Novolog Vial Sliding Scale - SQ 3 units TIDAC VANESSA Administration Protocol Midazolam HCl 2 mg 07/29/16 13:42 07/29/16 13:45 Versed - IVPUSH 2 mg Q2H PRN Administration AGITATION ASSESSMENT/PLAN: 66 year old male with significant PMH of CKD III, HTN, DM, CAD s/p CO presented to ICU after being found unresponsive by . S/P Epi x6 before ROSC. #Acute Cardiac arrest, unknown etiology (ACS vs Aspiration PNA?); long time to ROSC -stable BP off pressors thus far -intubated & sedated on Propofol w/ Versed PRN (attempted sedation vacation this morning but patient's RR and HR spiked) -Hypothermic protocol completed -troponins peaked at 1.53 yesterday -EEG taken & pending -Neurology consulted -cardiology following #Possible Pneumonia, aspiration? -on Ceftriaxone -Duonebs QIDR, Albuterol PRN -strep pneumo urine antigen positive -CXR in AM to f/u -ID consult appreciated #Acute on Chronic Renal Failure -continue to monitor electrolytes -avoid nephrotoxic meds #Hyperlipidemia -continue Lipitor #DM -ISS w/ BGM Prophylaxis/FEN -SCD, PPI Visit type - Emergency Visit Emergency Visit: Yes ED Registration Date: 07/27/16 Care time: The patient presented to the Emergency Department on the above date and was hospitalized for further evaluation of their emergent condition. - New Patient This patient is new to me today: No - Critical Care Critical Care patient: Yes Total Critical Care Time (in minutes): 45 Critical Care Statement: The care of this patient involved high complexity decision making to prevent further life threatening deterioration of the patient 's condition and/or to evalute & treat vital organ system(s) failure or risk of failure.
[2016-07-29] MEDS ORDERED: ACETAMINOPHEN 1000 MG/100 ML VIAL (NON FORMULARY) IVPB ONE (15:01)
--- NOTE | 2016-07-29 18:51 | CONSULT ---
Consult - text type - Consultation Consultation Note: NEUROLOGY CONSULTATION is greatly appreciated: Events reviewed. Patient examined. Discussed with family. Questions answered. This 66 yo RH man with h/o DM, HTN, Chol, Smoking and ASHD is s/p OK. Feeling unwell with GI complaints of nausea, vomiting, decreased PO intake x 3- 5 days. Monday had Nausea, vomited and went to bed. found him with stertorous respirations, unarousable and called EMS. She then witnessed respiratory arrest. Resuscitated by EMS but downtime may have been upwards of 30 mins. EMS described myoclonus Pt has remained unresponsive but became tachycardic and tachypneic off Propofol today for EEG which showed Burst-suppression patterns. No myoclonus noted when off propofol today. For CT tomorrow. Exam (on propofol): No response to pain (pulse may increase slightly). + spontaneous respirations. Pupils are 4 mm and sluggishly reactive. Absent corneals. + doll's head (oculocephalics) Flaccid, areflexic, plantars silent. IMP: Severe, bilateral, cerebral dysfunction without obvious asymmetry and with brainstem reflexes preserved. C/W Anoxic encephalopathy. SUGGEST: Agree with CT of head. Gradually taper and D/C propofol. Repeat Neuro exam off propofol. Prognosis guarded/grave. Family aware. Thank you very much, Christian Christian MD
[2016-07-29] MEDS ORDERED: PROPOFOL 100 ML ONE (19:29)
[2016-07-29] MEDS: PROPOFOL 100 ML IVPB SCH ×2 (19:31→23:29)
[2016-07-29] MEDS: ATORVASTATIN CA 80 MG TABLET (FP) PO SCH (21:42)
[2016-07-30] MEDS ORDERED: PROPOFOL 100 ML ONE ×2 (01:56→05:17)
[2016-07-30] MEDS: PROPOFOL 100 ML IVPB SCH ×4 (03:23→20:06)
[2016-07-30] MEDS: INSULIN SLIDING SCALE (NOVOLOG) 1 VIAL SQ SCH ×3 (06:01→16:12)
[2016-07-30] MEDS: MIDAZOLAM 100 MG in SODIUM CHLORIDE 100 ML IVPB SCH ×2 (06:02→12:19)
[2016-07-30] MEDS: ALBUTEROL SO4 2.5/IPRATROPIUM 0.5 INH SOL 3 ML VIAL.NEB. NEB SCH ×3 (06:32→22:15)
--- NOTE | 2016-07-30 08:31 | PN ---
Progress Note, Physician Chief Complaint: ID Unresponsive on the vent Seen by neurology In respiratory distress on the vent - Current Medication List Current Medications: Active Medications Albuterol Sulfate (Ventolin 0.083% Nebulizer Soln -) 1 amp NEB Q4H PRN PRN Reason: SHORT OF BREATH/WHEEZING Albuterol/Ipratropium (Duoneb -) 1 amp NEB TIDR [facility] Last Admin: 07/30/16 06:32 Dose: 1 amp Atorvastatin Calcium (Lipitor -) 80 mg PO HS [facility] Last Admin: 07/29/16 21:42 Dose: 80 mg Propofol (Diprivan -) 100 mls @ 2.79 mls/hr IVPB TITR [facility]; 5 MCG/KG/MIN PRN Reason: Protocol Last Titration: 07/30/16 07:13 Dose: 0 mcg/kg/min Midazolam HCl 100 mg/ Sodium (Chloride) 100 mls @ 2 mls/hr IVPB TITR [facility]; 2 MG/ HR PRN Reason: Protocol Last Admin: 07/30/16 06:02 Dose: Not Given Pantoprazole Sodium (Protonix 40mg Ivpb (Pre-Docked)) 100 mls @ 200 mls/hr IVPB DAILY [facility] Last Admin: 07/29/16 10:04 Dose: 200 mls/hr Ceftriaxone Sodium (Rocephin 2gm Ivpb (Pre-Docked)) 100 mls @ 200 mls/hr IVPB DAILY [facility] Last Admin: 07/29/16 10:05 Dose: 200 mls/hr Insulin Aspart (Novolog Vial Sliding Scale -) 1 vial SQ TIDAC [facility] PRN Reason: Protocol Last Admin: 07/30/16 06:01 Dose: 3 units Midazolam HCl (Versed -) 2 mg IVPUSH Q2H PRN PRN Reason: AGITATION Last Admin: 07/29/16 13:45 Dose: 2 mg - Objective Vital Signs: Vital Signs Temperature 97.6 F 07/30/16 07:00 Pulse Rate 88 07/30/16 07:00 Respiratory Rate 22 07/30/16 07:46 Blood Pressure 89/52 07/30/16 07:00 O2 Sat by Pulse Oximetry (%) 100 07/29/16 21:00 Constitutional: Yes: Severe Distress Neck: Yes: WNL, Supple Cardiovascular: Yes: Regular Rate and Rhythm, S1, S2 Respiratory: Yes: WNL, Regular, CTA Bilaterally, Rhonchi Gastrointestinal: Yes: WNL, Normal Bowel Sounds. No: Tenderness, Tenderness, Rebound Edema: No Labs: CBC, BMP 07/29/16 05:10 07/29/16 05:10 INR, PTT INR 1.57 (0.82-1.09) H 07/28/16 08:30 Assessment/Plan Microbiology 07/28/16 01:00 Sputum - Endotrachea Suction/Ventilator Gram Stain - Final 07/28/16 15:25 Blood - Peripheral Venous Blood Culture - Preliminary NO GROWTH OBTAINED AFTER 24 HOURS, INCUBATION TO CONTINUE FOR 4 DAYS. 07/28/16 15:20 Blood - Peripheral Venous Blood Culture - Preliminary NO GROWTH OBTAINED AFTER 24 HOURS, INCUBATION TO CONTINUE FOR 4 DAYS. 07/28/16 01:00 Sputum - Endotrachea Suction/Ventilator Sputum Culture - Preliminary NORMAL RESPIRATORY WILBER Laboratory Tests 07/29/16 07/29/16 07/29/16 05:10 05:10 07:25 WBC 6.2 Hgb 12.0 Plt Count 122 L ABG pH 7.34 L ABG pCO2 at Pt Temp 44.1 ABG pO2 at Pt Temp 75.9 L Oxygen Flow Rate 35% BUN 20 H Creatinine 1.1 Creat Clearance w eGFR > 60 Assessment Cardiac arrest Anoxic encephalopathy Respiratory failure Positive pneumococcal Ag on admission( Additional history that he had not felt well [employer] with ? Viral illness per PMD with episodes of vomiting noted. ? Pneumonia Plan Ceftriaxone ordered day 3 therapy Levi LOPEZ
--- NOTE | 2016-07-30 09:04 | PN ---
Progress Note (short form) - Note Progress Note: Seen and examined in the ICU fever 102.6 Remains intubated with increased WOB Sedation held this AM remains non responsive to noxious stimulation Seen by neuro: poor prognosis: anoxic injury Active Medications Albuterol Sulfate (Ventolin 0.083% Nebulizer Soln -) 1 amp NEB Q4H PRN PRN Reason: SHORT OF BREATH/WHEEZING Albuterol/Ipratropium (Duoneb -) 1 amp NEB TIDR [facility] Last Admin: 07/30/16 06:32 Dose: 1 amp Atorvastatin Calcium (Lipitor -) 80 mg PO HS [facility] Last Admin: 07/29/16 21:42 Dose: 80 mg Propofol (Diprivan -) 100 mls @ 2.79 mls/hr IVPB TITR [facility]; 5 MCG/KG/MIN PRN Reason: Protocol Last Titration: 07/30/16 07:13 Dose: 0 mcg/kg/min Midazolam HCl 100 mg/ Sodium (Chloride) 100 mls @ 2 mls/hr IVPB TITR [facility]; 2 MG/ HR PRN Reason: Protocol Last Admin: 07/30/16 06:02 Dose: Not Given Pantoprazole Sodium (Protonix 40mg Ivpb (Pre-Docked)) 100 mls @ 200 mls/hr IVPB DAILY [facility] Last Admin: 07/29/16 10:04 Dose: 200 mls/hr Ceftriaxone Sodium (Rocephin 2gm Ivpb (Pre-Docked)) 100 mls @ 200 mls/hr IVPB DAILY [facility] Last Admin: 07/29/16 10:05 Dose: 200 mls/hr Insulin Aspart (Novolog Vial Sliding Scale -) 1 vial SQ TIDAC [facility] PRN Reason: Protocol Last Admin: 07/30/16 06:01 Dose: 3 units Midazolam HCl (Versed -) 2 mg IVPUSH Q2H PRN PRN Reason: AGITATION Last Admin: 07/29/16 13:45 Dose: 2 mg Vital Signs Period Temp Pulse Resp BP Sys/Mercer Pulse Ox Last 24 Hr 97.4 F-102.6 F 87-132 22-42 87-152/52-78 96-100 Intake & Output 07/27/16 07/28/16 07/29/16 07/30/16 23:59 23:59 23:59 23:59 Intake Total 3867 1438.9 282 Output Total 1400 650 450 Balance 2467 788.9 -168 Weight 92.986 kg 67.268 kg 71.1 kg 70.942 kg Exam: Neuro: PERRL, + cough CV: RRR no m/r/g Pulm: coarse bilateral Abd: SNTND Ext: UE L>R edema, LE no edema CBCD WBC 6.5 K/mm3 (4.0-10.0) 07/30/16 10:30 RBC 3.54 M/mm3 (4.00-5.60) L 07/30/16 10:30 Hgb 10.6 GM/dL (11.7-16.9) L D 07/30/16 10:30 Hct 31.3 % (35.4-49) L 07/30/16 10:30 MCV 88.2 fl (80-96) 07/30/16 10:30 MCHC 34.0 g/dl (32.0-35.9) 07/30/16 10:30 RDW 13.5 % (11.9-15.9) 07/30/16 10:30 Plt Count 150 K/MM3 (134-434) D 07/30/16 10:30 MPV 8.5 fl (7.5-11.1) 07/30/16 10:30 CMP Sodium 139 mmol/L (136-145) 07/30/16 10:30 Potassium 3.9 mmol/L (3.5-5.1) 07/30/16 10:30 Chloride 103 mmol/L (98-107) 07/30/16 10:30 Carbon Dioxide 27 mmol/L (21-32) 07/30/16 10:30 Anion Gap 9 (8-16) 07/30/16 10:30 BUN 30 mg/dL (7-18) H D 07/30/16 10:30 Creatinine 1.7 mg/dL (0.7-1.3) H D 07/30/16 10:30 Creat Clearance w eGFR 40.53 (>60) 07/30/16 10:30 Random Glucose 219 mg/dL (74-106) H 07/30/16 10:30 Calcium 7.7 mg/dL (8.5-10.1) L 07/30/16 10:30 Total Bilirubin 0.3 mg/dL (0.2-1.0) D 07/30/16 10:30 AST 60 U/L (15-37) H 07/30/16 10:30 ALT 37 U/L (12-78) 07/30/16 10:30 Alkaline Phosphatase 93 U/L (45-117) 07/30/16 10:30 Total Protein 5.3 g/dl (6.4-8.2) L 07/30/16 10:30 Albumin 2.0 g/dl (3.4-5.0) L 07/30/16 10:30 CARDIAC ENZYMES Creatine Kinase 249 IU/L (39-308) 07/29/16 05:10 Troponin I 0.33 ng/ml (0.00-0.05) H D 07/29/16 05:10 Microbiology 07/28/16 00:00 Blood - Peripheral Venous Blood Culture - Preliminary NO GROWTH OBTAINED AFTER 48 HOURS, INCUBATION TO CONTINUE FOR 3 DAYS. 07/27/16 22:04 Blood - Peripheral Venous Blood Culture - Preliminary NO GROWTH OBTAINED AFTER 48 HOURS, INCUBATION TO CONTINUE FOR 3 DAYS. 07/28/16 15:25 Blood - Peripheral Venous Blood Culture - Preliminary NO GROWTH OBTAINED AFTER 24 HOURS, INCUBATION TO CONTINUE FOR 4 DAYS. 07/28/16 15:20 Blood - Peripheral Venous Blood Culture - Preliminary NO GROWTH OBTAINED AFTER 24 HOURS, INCUBATION TO CONTINUE FOR 4 DAYS. 07/28/16 01:00 Sputum - Endotrachea Suction/Ventilator Gram Stain - Final 07/28/16 01:00 Sputum - Endotrachea Suction/Ventilator Sputum Culture - Preliminary NORMAL RESPIRATORY WILBER 07/27/16 22:45 Urine - Urine Clean Catch Urine Culture - Final NO GROWTH OBTAINED Assessment/Plan S/P Cardiac Arrest with prolonged ROSC Suspected SUNDAR Shock -> Cardiogenic +/- Septic COPD HTN DM (?) PNA CHF CAD Demand ischemia Acute on CKD PLAN: AC mode of vent, failed SBT this AM ABX per ID daily interuption of sedation to monitor neuro status, restarted this AM 2/2 resp distress ASA VTE prophylaxis Need discussions for GOC Neuro following Boerem ACNP Pulm/CCM CCT: 35m
[2016-07-30] MEDS: PANTOPRAZOLE SODIUM 100 ML IVPB SCH (09:12)
[2016-07-30] MEDS: CEFTRIAXONE 100 ML IVPB SCH (09:13)
--- NOTE | 2016-07-30 10:42 | PN ---
Progress Note (short form) - Note Progress Note: Renal follow up for CKD Pt seen and examined at the bedside remains sedated on the vent + Fever yesterday pt without MS improvement off sedation Vital Signs Temperature 97.6 F 07/30/16 07:00 Pulse Rate 93 H 07/30/16 08:51 Respiratory Rate 30 H 07/30/16 08:55 Blood Pressure 127/64 07/30/16 08:00 O2 Sat by Pulse Oximetry (%) 97 07/30/16 09:01 Intake & Output 07/27/16 07/28/16 07/29/16 07/30/16 23:59 23:59 23:59 23:59 Intake Total 3867 1438.9 282 Output Total 1400 650 450 Balance 2467 788.9 -168 Weight 205 lb 148 lb 4.8 oz 156 lb 11.979 oz 156 lb 6.4 oz Gen: Intubated, sedated HEENT: NC/AT, ET tube in place CVS: RRR, No M/R Lungs: Dec BS lung bases, no rales Abd: soft NT/ND Ext: No edema, clubbing or cyanosis : no bladder distension, arias in place Neuro: Sedated Todays labs pending A/P 66 year old Gentleman with PMhx of CKD Stage 3 (baseline Cr 2, eGFR 33), Hypertension, DM, CAD s/p VA, PVD who presented s/p Cardiac Arrest at home s/p resuscitation and now in ICU on Vent. #Cardiac Arrest Continue management as per ICU, Cardiology #CKD stage 3 Trend renal function todays labs pending montior urine output keep MAP > 65 avoid nsaids and nephrotoxins #Hx of Hypertension BP stable off Antihypertensives #Suspected PNA/Fever continue emperic Abx f/u cultures ID following Ham Patel DO
[2016-07-30 10:43] LABS: BASOPHIL 0.5 % (0-2.0); EOSINOPHIL 0.4 % (0-4.5); MEAN CELL VOLUME 88.2 fl (80-96); MEAN PLT VOLUME 8.5 fl (7.5-11.1); NEUTROPHILS 75.9 % (42.8-82.8); PLATELET COUNT 150 K/MM3 (134-434); RDW 13.5 % (11.9-15.9); WHITE BLOOD COUNT 6.5 K/mm3 (4.0-10.0)
--- NOTE | 2016-07-30 10:43 | PN ---
Progress Note (short form) - Note Progress Note: icu care All f/u noted Neurology consult noted/ appreciated unresponsive on vent Vital Signs Temp 97.6 F 07/30/16 07:00 Pulse 93 H 07/30/16 08:51 Resp 30 H 07/30/16 08:55 BP 127/64 07/30/16 08:00 Pulse Ox 97 07/30/16 09:01 Intake & Output 07/29/16 07/29/16 07/30/16 11:59 23:59 11:59 Intake Total 1048.9 390 282 Output Total 350 300 450 Balance 698.9 90 -168 Weight 156 lb 11.979 oz 156 lb 6.4 oz Intake: IV 998.9 90 234 Diprivan - 100 ml @ 5 MCG 16.6 234 /KG/MIN 2.79 mls/hr IVPB TITR [facility] Rx#:[id number] Vecuronium [place] 50 mg 82.3 In D5w - 250 ml @ 0.8 MCG /KG/MIN 22.31 mls/hr IVPB TITR [facility] Rx#:[id number] Normal Saline - 1,000 ml 900 @ 75 mls/hr IV ASDIR [facility] Rx#:[id number] SL #3 70 SL #4 20 IVPB 50 300 48 Output: Gastric Drainage 250 Urine 350 300 200 [place] 350 300 200 Other: Voiding Method Indwelling Catheter Indwelling Catheter Indwelling Catheter Bowel Movement No Weight [facility] Active Medications Albuterol Sulfate (Ventolin 0.083% Nebulizer Soln -) 1 amp NEB Q4H PRN PRN Reason: SHORT OF BREATH/WHEEZING Albuterol/Ipratropium (Duoneb -) 1 amp NEB TIDR [facility] Last Admin: 07/30/16 06:32 Dose: 1 amp Atorvastatin Calcium (Lipitor -) 80 mg PO HS [facility] Last Admin: 07/29/16 21:42 Dose: 80 mg Propofol (Diprivan -) 100 mls @ 2.79 mls/hr IVPB TITR [facility]; 5 MCG/KG/MIN PRN Reason: Protocol Last Titration: 07/30/16 07:13 Dose: 0 mcg/kg/min Midazolam HCl 100 mg/ Sodium (Chloride) 100 mls @ 2 mls/hr IVPB TITR [facility]; 2 MG/ HR PRN Reason: Protocol Last Admin: 07/30/16 06:02 Dose: Not Given Pantoprazole Sodium (Protonix 40mg Ivpb (Pre-Docked)) 100 mls @ 200 mls/hr IVPB DAILY [facility] Last Admin: 07/30/16 09:12 Dose: 200 mls/hr Ceftriaxone Sodium (Rocephin 2gm Ivpb (Pre-Docked)) 100 mls @ 200 mls/hr IVPB DAILY [facility] Last Admin: 07/30/16 09:13 Dose: 200 mls/hr Insulin Aspart (Novolog Vial Sliding Scale -) 1 vial SQ TIDAC [facility] PRN Reason: Protocol Last Admin: 07/30/16 10:20 Dose: 2 units Insulin Detemir (Levemir Vial) 8 units SQ HS [facility] Midazolam HCl (Versed -) 2 mg IVPUSH Q2H PRN PRN Reason: AGITATION Last Admin: 07/29/16 13:45 Dose: 2 mg Today labs - pending EEG - NOTED CT HEAD/ ABDOMEN - Pending Microbiology 07/28/16 00:00 Blood Culture - Preliminary Blood - Peripheral Venous NO GROWTH OBTAINED AFTER 48 HOURS, INCUBATION TO CONTINUE FOR 3 DAYS. 07/27/16 22:04 Blood Culture - Preliminary Blood - Peripheral Venous NO GROWTH OBTAINED AFTER 48 HOURS, INCUBATION TO CONTINUE FOR 3 DAYS. 07/28/16 15:25 Blood Culture - Preliminary Blood - Peripheral Venous NO GROWTH OBTAINED AFTER 24 HOURS, INCUBATION TO CONTINUE FOR 4 DAYS. 07/28/16 15:20 Blood Culture - Preliminary Blood - Peripheral Venous NO GROWTH OBTAINED AFTER 24 HOURS, INCUBATION TO CONTINUE FOR 4 DAYS. 07/28/16 01:00 Gram Stain - Final Sputum - Endotrachea Suction/Ventilator Sputum Culture - Preliminary NORMAL RESPIRATORY WILBER 07/27/16 22:45 Urine Culture - Final Urine - Urine Clean Catch NO GROWTH OBTAINED Physical Exam Constitutional: Yes: Other (intubated) ngt -suction Cardiovascular: Yes: Regular Rate and Rhythm Respiratory: Yes: Diminished Gastrointestinal: Yes: Normal Bowel Sounds, Soft, Abdomen, Obese. No: Distention, Tenderness Edema: No Neurological: Yes: Other (intubated , sedated)-- Assessment and Plan S/p cardiac arrest positive strep pneumonia in urine suspect aspiration IDDM COPD renal insufficiency CAD Anoxic encephaolothy Meds reviewed Continue present care Abx CT head/abdomen pending add basal insulin Neurology consult noted/ appreciated Discussed with nursing staff also . Will follow Critical care time 30 min
[2016-07-30 11:07] LABS: CALCIUM 7.7 mg/dL (8.5-10.1); CREATININE 1.7 mg/dL (0.7-1.3)
[2016-07-30 11:08] LABS: BILIRUBIN,TOTAL 0.3 mg/dL (0.2-1.0); TOT PROT 5.3 g/dl (6.4-8.2)
[2016-07-30] MEDS: ATORVASTATIN CA 80 MG TABLET (FP) PO SCH (21:24)
[2016-07-30] MEDS: INSULIN DETEMIR 100 UNITS/ML MDV SQ SCH (21:51)
--- NOTE | 2016-07-30 22:45 | PN ---
Progress Note, Physician History of Present Illness: Unresponsive on vent. - Current Medication List Current Medications: Active Medications Albuterol Sulfate (Ventolin 0.083% Nebulizer Soln -) 1 amp NEB Q4H PRN PRN Reason: SHORT OF BREATH/WHEEZING Albuterol/Ipratropium (Duoneb -) 1 amp NEB TIDR [facility] Last Admin: 07/30/16 14:26 Dose: 1 amp Atorvastatin Calcium (Lipitor -) 80 mg PO HS [facility] Last Admin: 07/30/16 21:24 Dose: 80 mg Propofol (Diprivan -) 100 mls @ 2.79 mls/hr IVPB TITR [facility]; 5 MCG/KG/MIN PRN Reason: Protocol Last Admin: 07/30/16 20:06 Dose: 19.527 mls/hr Midazolam HCl 100 mg/ Sodium (Chloride) 100 mls @ 2 mls/hr IVPB TITR [facility]; 2 MG/ HR PRN Reason: Protocol Last Admin: 07/30/16 12:19 Dose: 4 mls/hr Pantoprazole Sodium (Protonix 40mg Ivpb (Pre-Docked)) 100 mls @ 200 mls/hr IVPB DAILY [facility] Last Admin: 07/30/16 09:12 Dose: 200 mls/hr Ceftriaxone Sodium (Rocephin 2gm Ivpb (Pre-Docked)) 100 mls @ 200 mls/hr IVPB DAILY [facility] Last Admin: 07/30/16 09:13 Dose: 200 mls/hr Insulin Aspart (Novolog Vial Sliding Scale -) 1 vial SQ TIDAC [facility] PRN Reason: Protocol Last Admin: 07/30/16 16:12 Dose: 2 units Insulin Detemir (Levemir Vial) 8 units SQ [facility] Last Admin: 07/30/16 21:51 Dose: 8 units Midazolam HCl (Versed -) 2 mg IVPUSH Q2H PRN PRN Reason: AGITATION Last Admin: 07/29/16 13:45 Dose: 2 mg - Objective Vital Signs: Vital Signs Temperature 97 F L 07/30/16 22:00 Pulse Rate 75 07/30/16 22:00 Respiratory Rate 22 07/30/16 22:00 Blood Pressure 112/56 07/30/16 22:00 O2 Sat by Pulse Oximetry (%) 97 07/30/16 09:01 Cardiovascular: Yes: Regular Rate and Rhythm Respiratory: Yes: Intubated, Mechanically Ventilated, Rhonchi Gastrointestinal: Yes: Normal Bowel Sounds, Soft Edema: No Labs: CBC, BMP 07/30/16 10:30 07/30/16 10:30 INR, PTT INR 1.57 (0.82-1.09) H 07/28/16 08:30 Assessment/Plan 01/01/2015 Preserved LV fxn, mild MR, TR 12/29/2014 Nuc stress: Mod size inferior moderate ischemia, small zone of infarction, LVEF 41% 07/28/3015 Mild decreased LV fxn, mild TR 1. s/p cardiopulmonary arrest 2. Acute systolic failure with pulm edema resolved 3. CAD h/o RI, demand ischemia 4. Acute on CKD improving 5. Anoxic brain injury 6. COPD P:1. Wean vent per ABG, BD, maintained on empiric abx for aspiration PNA, neuro f/u appreciated, EEG c/w anoxic brain injury 2. Troponins have peaked 3. Resume Altace 5 qd once renal fxn stable, Lipitor 80 qhs, ASA 81 qd 4. Enteral feeds, DVT and GI prophylaxis, diuresis as needed, f/u HCT
[2016-07-31] MEDS: PROPOFOL 100 ML IVPB SCH ×4 (01:54→22:59)
[2016-07-31] MEDS: MIDAZOLAM 100 MG in SODIUM CHLORIDE 100 ML IVPB SCH (01:55)
[2016-07-31 06:15] LABS: MCH 30.8 pg (25.7-33.7); MCHC 35.1 g/dl (32.0-35.9); MEAN CELL VOLUME 87.9 fl (80-96); MEAN PLT VOLUME 8.6 fl (7.5-11.1); PLATELET COUNT 161 K/MM3 (134-434); RDW 13.2 % (11.9-15.9); WHITE BLOOD COUNT 5.6 K/mm3 (4.0-10.0)
[2016-07-31] MEDS: INSULIN SLIDING SCALE (NOVOLOG) 1 VIAL SQ SCH ×3 (06:41→17:29)
[2016-07-31] MEDS: ALBUTEROL SO4 2.5/IPRATROPIUM 0.5 INH SOL 3 ML VIAL.NEB. NEB SCH ×3 (06:55→22:23)
[2016-07-31 07:49] LABS: ALLENS TEST POSITIVE; ART PUNCT SITE RIGHT RADIAL; ARTERIAL BLD GAS O2 SATURATION 95.4 % (90-98.9); ARTERIAL BLOOD GAS BASE EXCESS 3.7 meq/l (-2-2); ARTERIAL BLOOD GAS HCO3 27.7 meq/L (22-26); ARTERIAL BLOOD GAS PO2 78.6 mmHg (80-100); ARTERIAL BLOOD GAS pH 7.44 (7.35-7.45); LPM/O2% 35; PT. ON O2? YES; TYPE OF O2 MECH VENT
[2016-07-31 07:50] LABS: MECH. VENT. YES; VENT RATE 22; VT/PRESS 375
[2016-07-31 07:50] LABS: CALCIUM 7.7 mg/dL (8.5-10.1); MAGNESIUM 2.6 mg/dL (1.8-2.4)
[2016-07-31 07:53] LABS: CREATININE 1.2 mg/dL (0.7-1.3); PHOSPHOROUS 3.1 mg/dL (2.5-4.9)
[2016-07-31] MEDS: CEFTRIAXONE 100 ML IVPB SCH (09:14)
[2016-07-31] MEDS: PANTOPRAZOLE SODIUM 100 ML IVPB SCH (09:49)
--- NOTE | 2016-07-31 10:26 | PN ---
Progress Note (short form) - Note Progress Note: Seen and examined in ICU Remains intubated afebrile x24hrs Sputum culture positive: s. pneumo cont to have poor neuro exam off sedation heat CT done CTAP done Failed breathing trial when off sedation 2/2 RR >30 and increased WOB Spoke with family re [facility], currently willing to wait for neuro recovery but per previous discussions with patient he would never want to have "tubes" or live in long term. Current Medications Albuterol Sulfate (Ventolin 0.083% Nebulizer Soln -) 1 amp NEB Q4H PRN PRN Reason: SHORT OF BREATH/WHEEZING Albuterol/Ipratropium (Duoneb -) 1 amp NEB TIDR [facility] Last Admin: 07/31/16 06:55 Dose: 1 amp Atorvastatin Calcium (Lipitor -) 80 mg PO HS [facility] Last Admin: 07/30/16 21:24 Dose: 80 mg Propofol (Diprivan -) 100 mls @ 2.79 mls/hr IVPB TITR [facility]; 5 MCG/KG/MIN PRN Reason: Protocol Last Titration: 07/31/16 09:30 Dose: 0 mcg/kg/min Midazolam HCl 100 mg/ Sodium (Chloride) 100 mls @ 2 mls/hr IVPB TITR [facility]; 2 MG/ HR PRN Reason: Protocol Last Titration: 07/31/16 09:30 Dose: 0 mg/hr Pantoprazole Sodium (Protonix 40mg Ivpb (Pre-Docked)) 100 mls @ 200 mls/hr IVPB DAILY [facility] Last Admin: 07/31/16 09:49 Dose: 200 mls/hr Ceftriaxone Sodium (Rocephin 2gm Ivpb (Pre-Docked)) 100 mls @ 200 mls/hr IVPB DAILY [facility] Last Admin: 07/31/16 09:14 Dose: 200 mls/hr Insulin Aspart (Novolog Vial Sliding Scale -) 1 vial SQ TIDAC [facility] PRN Reason: Protocol Last Admin: 07/31/16 06:41 Dose: 1 units Insulin Detemir (Levemir Vial) 8 units SQ HS [facility] Last Admin: 07/30/16 21:51 Dose: 8 units Midazolam HCl (Versed -) 2 mg IVPUSH Q2H PRN PRN Reason: AGITATION Last Admin: 07/29/16 13:45 Dose: 2 mg Vital Signs Period Temp Pulse Resp BP Sys/Mercer Pulse Ox Last 24 Hr 96.8 F-98.2 F 70-88 22-22 94-135/53-69 99-99 Intake & Output 07/28/16 07/29/16 07/30/16 07/31/16 23:59 23:59 23:59 23:59 Intake Total 3867 1438.9 792 126 Output Total 2549 891 7894 450 Balance 2467 788.9 -358 -324 Weight 67.268 kg 71.1 kg 70.942 kg 67.993 kg General: intubated on mechanical ventilation neuro: PERRL, +gag, + cough, + spon resp Pulm: chery exp wheeze Abd: SNTNS Ext: no edema ABG Results ABG pH 7.44 (7.35-7.45) 07/31/16 07:45 ABG pCO2 at Pt Temp 41.6 mmHg (35-45) 07/31/16 07:45 ABG pO2 at Pt Temp 78.6 mmHg (80-100) L 07/31/16 07:45 ABG HCO3 27.7 meq/L (22-26) H 07/31/16 07:45 ABG O2 Sat (Measured) 95.4 % (90-98.9) 07/31/16 07:45 ABG O2 Content 13.2 % vol (15-22) L 07/31/16 07:45 ABG Base Excess 3.7 meq/l (-2-2) H 07/31/16 07:45 CBCD WBC 5.6 K/mm3 (4.0-10.0) 07/31/16 05:20 RBC 3.50 M/mm3 (4.00-5.60) L 07/31/16 05:20 Hgb 10.8 GM/dL (11.7-16.9) L 07/31/16 05:20 Hct 30.8 % (35.4-49) L 07/31/16 05:20 MCV 87.9 fl (80-96) 07/31/16 05:20 MCHC 35.1 g/dl (32.0-35.9) 07/31/16 05:20 RDW 13.2 % (11.9-15.9) 07/31/16 05:20 Plt Count 161 K/MM3 (134-434) 07/31/16 05:20 MPV 8.6 fl (7.5-11.1) 07/31/16 05:20 CMP Sodium 140 mmol/L (136-145) 07/31/16 05:20 Potassium 3.9 mmol/L (3.5-5.1) 07/31/16 05:20 Chloride 104 mmol/L (98-107) 07/31/16 05:20 Carbon Dioxide 26 mmol/L (21-32) 07/31/16 05:20 Anion Gap 10 (8-16) 07/31/16 05:20 BUN 28 mg/dL (7-18) H 07/31/16 05:20 Creatinine 1.2 mg/dL (0.7-1.3) D 07/31/16 05:20 Creat Clearance w eGFR 40.53 (>60) 07/30/16 10:30 Random Glucose 162 mg/dL (74-106) H D 07/31/16 05:20 Calcium 7.7 mg/dL (8.5-10.1) L 07/31/16 05:20 Total Bilirubin 0.3 mg/dL (0.2-1.0) D 07/30/16 10:30 AST 60 U/L (15-37) H 07/30/16 10:30 ALT 37 U/L (12-78) 07/30/16 10:30 Alkaline Phosphatase 93 U/L (45-117) 07/30/16 10:30 Total Protein 5.3 g/dl (6.4-8.2) L 07/30/16 10:30 Albumin 2.0 g/dl (3.4-5.0) L 07/30/16 10:30 Microbiology 07/28/16 00:00 Blood - Peripheral Venous Blood Culture - Preliminary NO GROWTH OBTAINED AFTER 72 HOURS, INCUBATION TO CONTINUE FOR 2 DAYS. 07/27/16 22:04 Blood - Peripheral Venous Blood Culture - Preliminary NO GROWTH OBTAINED AFTER 72 HOURS, INCUBATION TO CONTINUE FOR 2 DAYS. 07/28/16 15:25 Blood - Peripheral Venous Blood Culture - Preliminary NO GROWTH OBTAINED AFTER 48 HOURS, INCUBATION TO CONTINUE FOR 3 DAYS. 07/28/16 15:20 Blood - Peripheral Venous Blood Culture - Preliminary NO GROWTH OBTAINED AFTER 48 HOURS, INCUBATION TO CONTINUE FOR 3 DAYS. 07/28/16 01:00 Sputum - Endotrachea Suction/Ventilator Gram Stain - Final 07/28/16 01:00 Sputum - Endotrachea Suction/Ventilator Sputum Culture - Preliminary Streptococcus Pneumoniae - Final Head CT: ? PRES, no acute hemorrhage noted CTAP: w/o acute pathology CXR: unchanged, tubes and lines in ok position Assessment/Plan S/P Cardiac Arrest with prolonged ROSC Suspected SUNDAR Shock -> Cardiogenic +/- Septic COPD HTN DM PNA: s. pneumo CHF CAD Demand ischemia Acute on CKD PLAN: AC mode of vent, failed SBT this AM RR30, Tv 250's medrol for significant obstructive physiology on exam this AM will start steroids for bronchospasm/COPD exacerbation ABX per ID daily interruption of sedation to monitor neuro status, restarted this AM 2/ resp distress ASA VTE prophylaxis Need discussions for GOC --Spoke with family re GOC, currently willing to wait for neuro recovery but per previous discussions with patient he would never want to have "tubes" or live in long term. Neuro following Boerem ACNP Pulm/CCM CCT: 35m
[2016-07-31] MEDS: methylPREDNISolone NA SUCC 40 MG/1 ML VIAL IVPB SCH ×2 (11:22→17:29)
--- NOTE | 2016-07-31 12:05 | PN ---
Progress Note (short form) - Note Progress Note: Remains unresponsive on vent all f/u noted family at bedside Vital Signs Temp 99.7 F H 07/31/16 11:00 Pulse 93 H 07/31/16 11:00 Resp 22 07/31/16 11:53 BP 121/58 07/31/16 11:00 Pulse Ox 99 07/31/16 10:00 Intake & Output 07/30/16 07/31/16 07/31/16 23:59 11:59 23:59 Intake Total 510 346 Output Total 700 450 Balance -190 -104 Weight 149 lb 14.4 oz Intake: IV 260 126 Diprivan - 100 ml @ 5 MCG 196 98 /KG/MIN 2.79 mls/hr IVPB TITR [facility] Rx#:[id number] Versed - 100 mg In Normal 64 28 Saline - 100 ml @ 2 MG/ HR 2 mls/hr IVPB TITR [facility] Rx#:[id number] IVPB 200 220 Tube Irrigant 50 Output: Gastric Drainage 150 Urine 550 450 [place] 550 450 Other: Voiding Method Indwelling Catheter Indwelling Catheter Bowel Movement No No Weight Measurement Method Built in [facility] Active Medications Albuterol Sulfate (Ventolin 0.083% Nebulizer Soln -) 1 amp NEB Q4H PRN PRN Reason: SHORT OF BREATH/WHEEZING Albuterol/Ipratropium (Duoneb -) 1 amp NEB TIDR [facility] Last Admin: 07/31/16 06:55 Dose: 1 amp Atorvastatin Calcium (Lipitor -) 80 mg PO HS [facility] Last Admin: 07/30/16 21:24 Dose: 80 mg Propofol (Diprivan -) 100 mls @ 2.79 mls/hr IVPB TITR [facility]; 5 MCG/KG/MIN PRN Reason: Protocol Last Titration: 07/31/16 10:26 Dose: 35 mcg/kg/min Midazolam HCl 100 mg/ Sodium (Chloride) 100 mls @ 2 mls/hr IVPB TITR [facility]; 2 MG/ HR PRN Reason: Protocol Last Titration: 07/31/16 10:26 Dose: 4 mg/hr Pantoprazole Sodium (Protonix 40mg Ivpb (Pre-Docked)) 100 mls @ 200 mls/hr IVPB DAILY [facility] Last Admin: 07/31/16 09:49 Dose: 200 mls/hr Ceftriaxone Sodium (Rocephin 2gm Ivpb (Pre-Docked)) 100 mls @ 200 mls/hr IVPB DAILY [facility] Last Admin: 07/31/16 09:14 Dose: 200 mls/hr Insulin Aspart (Novolog Vial Sliding Scale -) 1 vial SQ TIDAC [facility] PRN Reason: Protocol Last Admin: 07/31/16 11:36 Dose: 1 units Insulin Detemir (Levemir Vial) 8 units SQ HS [facility] Last Admin: 07/30/16 21:51 Dose: 8 units Methylprednisolone Sodium Succinate (Solu-Medrol -) 40 mg IVPB Q8H-IV [facility] Last Admin: 07/31/16 11:22 Dose: 40 mg Midazolam HCl (Versed -) 2 mg IVPUSH Q2H PRN PRN Reason: AGITATION Last Admin: 07/29/16 13:45 Dose: 2 mg CBC, BMP 07/31/16 05:20 07/31/16 05:20 Microbiology 07/28/16 01:00 Gram Stain - Final Sputum - Endotrachea Suction/Ventilator Sputum Culture - Preliminary Streptococcus Pneumoniae 07/28/16 00:00 Blood Culture - Preliminary Blood - Peripheral Venous NO GROWTH OBTAINED AFTER 72 HOURS, INCUBATION TO CONTINUE FOR 2 DAYS. 07/27/16 22:04 Blood Culture - Preliminary Blood - Peripheral Venous NO GROWTH OBTAINED AFTER 72 HOURS, INCUBATION TO CONTINUE FOR 2 DAYS. 07/28/16 15:25 Blood Culture - Preliminary Blood - Peripheral Venous NO GROWTH OBTAINED AFTER 48 HOURS, INCUBATION TO CONTINUE FOR 3 DAYS. 07/28/16 15:20 Blood Culture - Preliminary Blood - Peripheral Venous NO GROWTH OBTAINED AFTER 48 HOURS, INCUBATION TO CONTINUE FOR 3 DAYS. Physical Exam Constitutional: Yes: Other (intubated) Cardiovascular: Yes: Regular Rate and Rhythm Respiratory: Yes: Diminished Gastrointestinal: Yes: Normal Bowel Sounds, Soft, Abdomen, Obese. No: Distention, Tenderness Edema: No Neurological: Yes: Other (intubated , sedated)-- Assessment and Plan S/p cardiac arrest positive strep pneumonia in urine suspect aspiration IDDM COPD renal insufficiency CAD Anoxic encephaolothy Meds reviewed Continue present care Abx CT head/--Anoxic encephalopathy / edema ct Abdomen - prelim report ok started on steroids Discussed with family continue present care prognosis grave
--- NOTE | 2016-07-31 12:12 | PN ---
Progress Note, Physician History of Present Illness: Unresponsive on vent. - Current Medication List Current Medications: Active Medications Albuterol Sulfate (Ventolin 0.083% Nebulizer Soln -) 1 amp NEB Q4H PRN PRN Reason: SHORT OF BREATH/WHEEZING Albuterol/Ipratropium (Duoneb -) 1 amp NEB TIDR [facility] Last Admin: 07/31/16 06:55 Dose: 1 amp Atorvastatin Calcium (Lipitor -) 80 mg PO HS [facility] Last Admin: 07/30/16 21:24 Dose: 80 mg Propofol (Diprivan -) 100 mls @ 2.79 mls/hr IVPB TITR [facility]; 5 MCG/KG/MIN PRN Reason: Protocol Last Titration: 07/31/16 10:26 Dose: 35 mcg/kg/min Midazolam HCl 100 mg/ Sodium (Chloride) 100 mls @ 2 mls/hr IVPB TITR [facility]; 2 MG/ HR PRN Reason: Protocol Last Titration: 07/31/16 10:26 Dose: 4 mg/hr Pantoprazole Sodium (Protonix 40mg Ivpb (Pre-Docked)) 100 mls @ 200 mls/hr IVPB DAILY [facility] Last Admin: 07/31/16 09:49 Dose: 200 mls/hr Ceftriaxone Sodium (Rocephin 2gm Ivpb (Pre-Docked)) 100 mls @ 200 mls/hr IVPB DAILY [facility] Last Admin: 07/31/16 09:14 Dose: 200 mls/hr Insulin Aspart (Novolog Vial Sliding Scale -) 1 vial SQ TIDAC [facility] PRN Reason: Protocol Last Admin: 07/31/16 11:36 Dose: 1 units Insulin Detemir (Levemir Vial) 8 units SQ HS [facility] Last Admin: 07/30/16 21:51 Dose: 8 units Methylprednisolone Sodium Succinate (Solu-Medrol -) 40 mg IVPB Q8H-IV [facility] Last Admin: 07/31/16 11:22 Dose: 40 mg Midazolam HCl (Versed -) 2 mg IVPUSH Q2H PRN PRN Reason: AGITATION Last Admin: 07/29/16 13:45 Dose: 2 mg - Objective Vital Signs: Vital Signs Temperature 99.7 F H 07/31/16 11:00 Pulse Rate 93 H 07/31/16 11:00 Respiratory Rate 22 07/31/16 11:53 Blood Pressure 121/58 07/31/16 11:00 O2 Sat by Pulse Oximetry (%) 99 07/31/16 10:00 Neck: Yes: Supple Cardiovascular: Yes: Regular Rate and Rhythm Respiratory: Yes: Intubated, Mechanically Ventilated, Rhonchi Gastrointestinal: Yes: Normal Bowel Sounds, Soft Edema: No Labs: CBC, BMP 07/31/16 05:20 07/31/16 05:20 INR, PTT INR 1.57 (0.82-1.09) H 07/28/16 08:30 - ....Imaging Cat Scan: Report Reviewed (HCT: Cerebral edema) Assessment/Plan 01/01/2015 Preserved LV fxn, mild MR, TR 12/29/2014 Nuc stress: Mod size inferior moderate ischemia, small zone of infarction, LVEF 41% 07/28/3015 Mild decreased LV fxn, mild TR 1. s/p cardiopulmonary arrest with prolonged ROSC 2. Acute systolic failure with pulm edema resolved 3. CAD h/o [place], demand ischemia 4. Acute on CKD improving 5. Anoxic brain injury 6. COPD, PNA: s. pneumo P:1. Failed SBT this AM, BD, steroids initiated, maintained on empiric abx for aspiration PNA, neuro f/u appreciated, EEG c/w anoxic brain injury 2. Troponins have peaked 3. Resume Altace 5 qd once renal fxn stable, Lipitor 80 qhs, ASA 81 qd 4. Enteral feeds, DVT and GI prophylaxis, diuresis as needed, addressing GOC
--- NOTE | 2016-07-31 12:14 | PN ---
Progress Note, Physician History of Present Illness: Not responsive on ventilator Low grade temp WBC WNL Blood c/s no growth - Current Medication List Current Medications: Active Medications Albuterol Sulfate (Ventolin 0.083% Nebulizer Soln -) 1 amp NEB Q4H PRN PRN Reason: SHORT OF BREATH/WHEEZING Albuterol/Ipratropium (Duoneb -) 1 amp NEB TIDR [facility] Last Admin: 07/31/16 06:55 Dose: 1 amp Atorvastatin Calcium (Lipitor -) 80 mg PO HS [facility] Last Admin: 07/30/16 21:24 Dose: 80 mg Propofol (Diprivan -) 100 mls @ 2.79 mls/hr IVPB TITR [facility]; 5 MCG/KG/MIN PRN Reason: Protocol Last Titration: 07/31/16 10:26 Dose: 35 mcg/kg/min Midazolam HCl 100 mg/ Sodium (Chloride) 100 mls @ 2 mls/hr IVPB TITR [facility]; 2 MG/ HR PRN Reason: Protocol Last Titration: 07/31/16 10:26 Dose: 4 mg/hr Pantoprazole Sodium (Protonix 40mg Ivpb (Pre-Docked)) 100 mls @ 200 mls/hr IVPB DAILY [facility] Last Admin: 07/31/16 09:49 Dose: 200 mls/hr Ceftriaxone Sodium (Rocephin 2gm Ivpb (Pre-Docked)) 100 mls @ 200 mls/hr IVPB DAILY [facility] Last Admin: 07/31/16 09:14 Dose: 200 mls/hr Insulin Aspart (Novolog Vial Sliding Scale -) 1 vial SQ TIDAC [facility] PRN Reason: Protocol Last Admin: 07/31/16 11:36 Dose: 1 units Insulin Detemir (Levemir Vial) 8 units SQ HS [facility] Last Admin: 07/30/16 21:51 Dose: 8 units Methylprednisolone Sodium Succinate (Solu-Medrol -) 40 mg IVPB Q8H-IV [facility] Last Admin: 07/31/16 11:22 Dose: 40 mg Midazolam HCl (Versed -) 2 mg IVPUSH Q2H PRN PRN Reason: AGITATION Last Admin: 07/29/16 13:45 Dose: 2 mg - Objective Vital Signs: Vital Signs Temperature 99.7 F H 07/31/16 11:00 Pulse Rate 93 H 07/31/16 11:00 Respiratory Rate 22 07/31/16 11:53 Blood Pressure 121/58 07/31/16 11:00 O2 Sat by Pulse Oximetry (%) 99 07/31/16 10:00 Constitutional: Yes: No Distress Eyes: Yes: Conjunctiva Clear Cardiovascular: Yes: Regular Rate and Rhythm, S1, S2 Respiratory: Yes: Mechanically Ventilated Gastrointestinal: Yes: Normal Bowel Sounds, Soft. No: Tenderness Labs: CBC, BMP 07/31/16 05:20 07/31/16 05:20 INR, PTT INR 1.57 (0.82-1.09) H 07/28/16 08:30 Assessment/Plan S/P cardiopulmonary arrest Probable anoxic encephalopathy + Urine pneumococcal ag Continue ventilatory support Ceftriaxone
--- NOTE | 2016-07-31 12:19 | PN ---
Progress Note (short form) - Note Progress Note: Vital Signs Temp 99.7 F H 07/31/16 11:00 Pulse 93 H 07/31/16 11:00 Resp 22 07/31/16 11:53 BP 121/58 07/31/16 11:00 Pulse Ox 99 07/31/16 10:00 Intake & Output 07/30/16 07/31/16 07/31/16 23:59 11:59 23:59 Intake Total 510 346 Output Total 700 450 Balance -190 -104 Weight 149 lb 14.4 oz Intake: IV 260 126 Diprivan - 100 ml @ 5 MCG 196 98 /KG/MIN 2.79 mls/hr IVPB TITR [facility] Rx#:[id number] Versed - 100 mg In Normal 64 28 Saline - 100 ml @ 2 MG/ HR 2 mls/hr IVPB TITR [facility] Rx#:[id number] IVPB 200 220 Tube Irrigant 50 Output: Gastric Drainage 150 Urine 550 450 [place] 550 450 Other: Voiding Method Indwelling Catheter Indwelling Catheter Bowel Movement No No Weight Measurement Method Built in [facility] Active Medications Albuterol Sulfate (Ventolin 0.083% Nebulizer Soln -) 1 amp NEB Q4H PRN PRN Reason: SHORT OF BREATH/WHEEZING Albuterol/Ipratropium (Duoneb -) 1 amp NEB TIDR [facility] Last Admin: 07/31/16 06:55 Dose: 1 amp Atorvastatin Calcium (Lipitor -) 80 mg PO HS [facility] Last Admin: 07/30/16 21:24 Dose: 80 mg Propofol (Diprivan -) 100 mls @ 2.79 mls/hr IVPB TITR [facility]; 5 MCG/KG/MIN PRN Reason: Protocol Last Titration: 07/31/16 10:26 Dose: 35 mcg/kg/min Midazolam HCl 100 mg/ Sodium (Chloride) 100 mls @ 2 mls/hr IVPB TITR [facility]; 2 MG/ HR PRN Reason: Protocol Last Titration: 07/31/16 10:26 Dose: 4 mg/hr Pantoprazole Sodium (Protonix 40mg Ivpb (Pre-Docked)) 100 mls @ 200 mls/hr IVPB DAILY [facility] Last Admin: 07/31/16 09:49 Dose: 200 mls/hr Ceftriaxone Sodium (Rocephin 2gm Ivpb (Pre-Docked)) 100 mls @ 200 mls/hr IVPB DAILY [facility] Last Admin: 07/31/16 09:14 Dose: 200 mls/hr Insulin Aspart (Novolog Vial Sliding Scale -) 1 vial SQ TIDAC [facility] PRN Reason: Protocol Last Admin: 07/31/16 11:36 Dose: 1 units Insulin Detemir (Levemir Vial) 8 units SQ HS [facility] Last Admin: 07/30/16 21:51 Dose: 8 units Methylprednisolone Sodium Succinate (Solu-Medrol -) 40 mg IVPB Q8H-IV [facility] Last Admin: 07/31/16 11:22 Dose: 40 mg Midazolam HCl (Versed -) 2 mg IVPUSH Q2H PRN PRN Reason: AGITATION Last Admin: 07/29/16 13:45 Dose: 2 mg CBC, BMP 07/31/16 05:20 07/31/16 05:20 Microbiology 07/28/16 01:00 Gram Stain - Final Sputum - Endotrachea Suction/Ventilator Sputum Culture - Preliminary Streptococcus Pneumoniae 07/28/16 00:00 Blood Culture - Preliminary Blood - Peripheral Venous NO GROWTH OBTAINED AFTER 72 HOURS, INCUBATION TO CONTINUE FOR 2 DAYS. 07/27/16 22:04 Blood Culture - Preliminary Blood - Peripheral Venous NO GROWTH OBTAINED AFTER 72 HOURS, INCUBATION TO CONTINUE FOR 2 DAYS. 07/28/16 15:25 Blood Culture - Preliminary Blood - Peripheral Venous NO GROWTH OBTAINED AFTER 48 HOURS, INCUBATION TO CONTINUE FOR 3 DAYS. 07/28/16 15:20 Blood Culture - Preliminary Blood - Peripheral Venous NO GROWTH OBTAINED AFTER 48 HOURS, INCUBATION TO CONTINUE FOR 3 DAYS.
[2016-07-31] MEDS ORDERED: ACETAMINOPHEN 1000 MG/100 ML VIAL (NON FORMULARY) IVPB ONE (14:59)
[2016-07-31] MEDS: ATORVASTATIN CA 80 MG TABLET (FP) PO SCH (22:04)
[2016-07-31] MEDS: INSULIN DETEMIR 100 UNITS/ML MDV SQ SCH (22:07)
[2016-07-31] MEDS: ACETAMINOPHEN 650 MG/20.3 ML ORAL SOLUTION (CUPS) PO PRN (22:11)
[2016-08-01] MEDS: methylPREDNISolone NA SUCC 40 MG/1 ML VIAL IVPB SCH ×3 (01:31→22:41)
[2016-08-01] MEDS: MIDAZOLAM 100 MG in SODIUM CHLORIDE 100 ML IVPB SCH ×2 (02:39→22:42)
[2016-08-01] MEDS: PROPOFOL 100 ML IVPB SCH ×3 (05:04→22:41)
[2016-08-01] MEDS ORDERED: Insulin (LOG) Aspart 100 UNITS/ML VIAL SQ ONE (05:30)
[2016-08-01 06:04] LABS: MCH 30.6 pg (25.7-33.7); MCHC 34.4 g/dl (32.0-35.9); MEAN CELL VOLUME 88.9 fl (80-96); MEAN PLT VOLUME 8.2 fl (7.5-11.1); PLATELET COUNT 207 K/MM3 (134-434); RDW 13.6 % (11.9-15.9); WHITE BLOOD COUNT 4.8 K/mm3 (4.0-10.0)
[2016-08-01] MEDS: ALBUTEROL SO4 2.5/IPRATROPIUM 0.5 INH SOL 3 ML VIAL.NEB. NEB SCH ×3 (06:11→22:30)
[2016-08-01 06:30] LABS: CALCIUM 7.7 mg/dL (8.5-10.1); CREATININE 1.5 mg/dL (0.7-1.3); MAGNESIUM 2.8 mg/dL (1.8-2.4); PHOSPHOROUS 4.8 mg/dL (2.5-4.9)
[2016-08-01 06:34] LABS: BILIRUBIN,TOTAL 0.4 mg/dL (0.2-1.0); TOT PROT 5.8 g/dl (6.4-8.2)
[2016-08-01] MEDS: INSULIN DETEMIR 100 UNITS/ML MDV SQ SCH ×2 (06:41→17:04)
[2016-08-01] MEDS: INSULIN SLIDING SCALE (NOVOLOG) 1 VIAL SQ SCH ×3 (06:42→17:04)
[2016-08-01 07:23] LABS: ALLENS TEST POSITIVE; ART PUNCT SITE RIGHT RADIAL; ARTERIAL BLD GAS O2 SATURATION 95.5 % (90-98.9); ARTERIAL BLOOD GAS BASE EXCESS 1.8 meq/l (-2-2); ARTERIAL BLOOD GAS HCO3 26.3 meq/L (22-26); ARTERIAL BLOOD GAS PO2 84.4 mmHg (80-100); LPM/O2% 35%; MECH. VENT. YES; PT. ON O2? YES; TYPE OF O2 VENT; VT/PRESS 375
[2016-08-01 07:24] LABS: VENT RATE 22
--- NOTE | 2016-08-01 08:02 | PN ---
Progress Note, Physician Chief Complaint: ID Remains comatose on the ventilator Ceftriaxone - Current Medication List Current Medications: Active Medications Acetaminophen (Tylenol Oral Solution -) 650 mg PO Q6H PRN PRN Reason: FEVER OR PAIN Last Admin: 07/31/16 22:11 Dose: 650 mg Albuterol Sulfate (Ventolin 0.083% Nebulizer Soln -) 1 amp NEB Q4H PRN PRN Reason: SHORT OF BREATH/WHEEZING Albuterol/Ipratropium (Duoneb -) 1 amp NEB TIDR [facility] Last Admin: 08/01/16 06:11 Dose: 1 amp Atorvastatin Calcium (Lipitor -) 80 mg PO HS [facility] Last Admin: 07/31/16 22:04 Dose: 80 mg Propofol (Diprivan -) 100 mls @ 2.79 mls/hr IVPB TITR [facility]; 5 MCG/KG/MIN PRN Reason: Protocol Last Admin: 08/01/16 05:04 Dose: 19.527 mls/hr Midazolam HCl 100 mg/ Sodium (Chloride) 100 mls @ 2 mls/hr IVPB TITR [facility]; 2 MG/ HR PRN Reason: Protocol Last Admin: 08/01/16 02:39 Dose: 4 mls/hr Pantoprazole Sodium (Protonix 40mg Ivpb (Pre-Docked)) 100 mls @ 200 mls/hr IVPB DAILY [facility] Last Admin: 07/31/16 09:49 Dose: 200 mls/hr Ceftriaxone Sodium (Rocephin 2gm Ivpb (Pre-Docked)) 100 mls @ 200 mls/hr IVPB DAILY [facility] Last Admin: 07/31/16 09:14 Dose: 200 mls/hr Insulin Aspart (Novolog Vial Sliding Scale -) 1 vial SQ TIDAC [facility] PRN Reason: Protocol Last Admin: 08/01/16 06:42 Dose: 6 units Insulin Detemir (Levemir Vial) 8 units SQ BIDI [facility] Last Admin: 08/01/16 06:41 Dose: 8 units Methylprednisolone Sodium Succinate (Solu-Medrol -) 40 mg IVPB Q8H-IV [facility] Last Admin: 08/01/16 01:31 Dose: 40 mg Midazolam HCl (Versed -) 2 mg IVPUSH Q2H PRN PRN Reason: AGITATION Last Admin: 07/29/16 13:45 Dose: 2 mg - Objective Vital Signs: Vital Signs Temperature 97 F L 08/01/16 06:00 Pulse Rate 81 08/01/16 06:00 Respiratory Rate 22 08/01/16 06:12 Blood Pressure 125/60 08/01/16 06:00 O2 Sat by Pulse Oximetry (%) 96 07/31/16 22:00 Constitutional: Yes: Other (INtubated) Cardiovascular: Yes: S1, S2 Respiratory: Yes: WNL, Regular, CTA Bilaterally Gastrointestinal: Yes: WNL, Normal Bowel Sounds, Soft Edema: No Labs: CBC, BMP 08/01/16 05:00 08/01/16 05:00 INR, PTT INR 1.57 (0.82-1.09) H 07/28/16 08:30 Assessment/Plan Laboratory Tests 08/01/16 08/01/16 08/01/16 05:00 05:00 07:05 WBC 4.8 Hgb 10.7 L Hct 31.2 L Plt Count 207 D ABG pH 7.40 Oxygen Flow Rate 35% BUN 39 H D Creatinine 1.5 H D Creat Clearance w eGFR 46.82 Assessment Anoxic encephalopathy following positive cardiac arrest Respiratory failure Positive pneumococcal Ag ? significance on treatment Plan Will give him 7 days of Ceftriaxone Family deciding on plan of care given anoxic brain injury Levi LOPEZ
--- NOTE | 2016-08-01 08:44 | PN ---
Progress Note (short form) - Note Progress Note: Subjective Patient seen and examined in the ICU. Remains unresponsive on vent. Objective Last Vital Signs Temp Pulse Resp BP Pulse Ox 97 F L 81 22 125/60 96 08/01/16 06:00 08/01/16 06:00 08/01/16 09:09 08/01/16 06:00 07/31/16 22:00 CBC, BMP 08/01/16 05:00 08/01/16 05:00 Laboratory Results - last 24 hr 07/31/16 07/31/16 07/31/16 05:24 11:28 22:06 WBC RBC Hgb Hct MCV MCHC RDW Plt Count MPV Neutrophils % Lymphocytes % Monocytes % Metamyelocytes Myelocytes Promyelocytes Platelet Estimate Anticoagulation Therapy Puncture Site ABG pH ABG pCO2 at Pt Temp ABG pO2 at Pt Temp ABG HCO3 ABG O2 Sat (Measured) ABG O2 Content ABG Base Excess George Test O2 Delivery Device Oxygen Flow Rate Vent Mode Vent Rate Mechanical Rate PEEP Pressure Support Vent Sodium Potassium Chloride Carbon Dioxide Anion Gap BUN Creatinine Creat Clearance w eGFR POC Glucometer 192.15598 198.97388 292.09873 Random Glucose Calcium Phosphorus Magnesium Total Bilirubin AST ALT Alkaline Phosphatase Total Protein Albumin 08/01/16 08/01/16 08/01/16 04:57 05:00 05:00 WBC 4.8 RBC 3.51 L Hgb 10.7 L Hct 31.2 L MCV 88.9 MCHC 34.4 RDW 13.6 Plt Count 207 D MPV 8.2 Neutrophils % 73.0 Lymphocytes % 20.0 D Monocytes % 4.0 Metamyelocytes 1 Myelocytes 1 Promyelocytes 1 Platelet Estimate Decreased Anticoagulation Therapy Puncture Site ABG pH ABG pCO2 at Pt Temp ABG pO2 at Pt Temp ABG HCO3 ABG O2 Sat (Measured) ABG O2 Content ABG Base Excess George Test O2 Delivery Device Oxygen Flow Rate Vent Mode Vent Rate Mechanical Rate PEEP Pressure Support Vent Sodium 138 Potassium 4.6 Chloride 101 Carbon Dioxide 29 Anion Gap 8 BUN 39 H D Creatinine 1.5 H D Creat Clearance w eGFR 46.82 POC Glucometer > 400 Random Glucose 393 H* D Calcium 7.7 L Phosphorus 4.8 D Magnesium 2.8 H Total Bilirubin 0.4 D AST 68 H ALT 33 Alkaline Phosphatase 120 H D Total Protein 5.8 L Albumin 2.0 L 08/01/16 07:05 WBC RBC Hgb Hct MCV MCHC RDW Plt Count MPV Neutrophils % Lymphocytes % Monocytes % Metamyelocytes Myelocytes Promyelocytes Platelet Estimate Anticoagulation Therapy Y Puncture Site Right radial ABG pH 7.40 ABG pCO2 at Pt Temp 43.5 ABG pO2 at Pt Temp 84.4 ABG HCO3 26.3 H ABG O2 Sat (Measured) 95.5 ABG O2 Content 14.8 L ABG Base Excess 1.8 George Test Positive O2 Delivery Device Vent Oxygen Flow Rate 35% Vent Mode A/c Vent Rate 22 Mechanical Rate Yes PEEP 5.0 Pressure Support Vent 375 Sodium Potassium Chloride Carbon Dioxide Anion Gap BUN Creatinine Creat Clearance w eGFR POC Glucometer Random Glucose Calcium Phosphorus Magnesium Total Bilirubin AST ALT Alkaline Phosphatase Total Protein Albumin Physical Exam Constitutional: Yes: Other (intubated) Cardiovascular: Yes: Regular Rate and Rhythm Respiratory: Yes: Diminished Gastrointestinal: Yes: Normal Bowel Sounds, Soft, Abdomen, Obese. No: Distention, Tenderness Edema: No Neurological: Yes: Other (intubated , sedated)-- Assessment and Plan S/p cardiac arrest positive strep pneumonia in urine/sputum CT abdomen reviewed with Dr. Kowalski last night Cholecystitis?? Patient abdomen is benign Continue abx. suspect aspiration IDDM COPD renal insufficiency CAD Anoxic encephaolothy Meds reviewed Continue present care Abx prognosis grave Will follow. Documentation prepared by Zainab Frazier, acting as a medical billing instructor for Padma Woodruff MD.
[2016-08-01] MEDS: CEFTRIAXONE 100 ML IVPB SCH ×2 (09:13→09:14)
[2016-08-01] MEDS: PANTOPRAZOLE SODIUM 100 ML IVPB SCH (09:15)
[2016-08-01 09:46] LABS: METAMYELOCYTE 1 % (0-2)
[2016-08-01 09:52] LABS: PLATELET ESTIMATE ADEQUATE (NORMAL)
--- NOTE | 2016-08-01 10:35 | PN ---
Progress Note, Physician History of Present Illness: Unresponsive on vent off sedation. - Current Medication List Current Medications: Active Medications Acetaminophen (Tylenol Oral Solution -) 650 mg PO Q6H PRN PRN Reason: FEVER OR PAIN Last Admin: 07/31/16 22:11 Dose: 650 mg Albuterol Sulfate (Ventolin 0.083% Nebulizer Soln -) 1 amp NEB Q4H PRN PRN Reason: SHORT OF BREATH/WHEEZING Albuterol/Ipratropium (Duoneb -) 1 amp NEB TIDR [facility] Last Admin: 08/01/16 06:11 Dose: 1 amp Atorvastatin Calcium (Lipitor -) 80 mg PO HS [facility] Last Admin: 07/31/16 22:04 Dose: 80 mg Propofol (Diprivan -) 100 mls @ 2.79 mls/hr IVPB TITR [facility]; 5 MCG/KG/MIN PRN Reason: Protocol Last Admin: 08/01/16 05:04 Dose: 19.527 mls/hr Midazolam HCl 100 mg/ Sodium (Chloride) 100 mls @ 2 mls/hr IVPB TITR [facility]; 2 MG/ HR PRN Reason: Protocol Last Admin: 08/01/16 02:39 Dose: 4 mls/hr Pantoprazole Sodium (Protonix 40mg Ivpb (Pre-Docked)) 100 mls @ 200 mls/hr IVPB DAILY [facility] Last Admin: 08/01/16 09:15 Dose: 200 mls/hr Ceftriaxone Sodium (Rocephin 2gm Ivpb (Pre-Docked)) 100 mls @ 200 mls/hr IVPB DAILY [facility] Last Admin: 08/01/16 09:14 Dose: 200 mls/hr Insulin Aspart (Novolog Vial Sliding Scale -) 1 vial SQ TIDAC [facility] PRN Reason: Protocol Last Admin: 08/01/16 06:42 Dose: 6 units Insulin Detemir (Levemir Vial) 8 units SQ BIDI [facility] Last Admin: 08/01/16 06:41 Dose: 8 units Methylprednisolone Sodium Succinate (Solu-Medrol -) 40 mg IVPB Q8H-IV [facility] Last Admin: 08/01/16 09:16 Dose: 40 mg Midazolam HCl (Versed -) 2 mg IVPUSH Q2H PRN PRN Reason: AGITATION Last Admin: 07/29/16 13:45 Dose: 2 mg - Objective Vital Signs: Vital Signs Temperature 95.9 F L 08/01/16 10:22 Pulse Rate 81 08/01/16 10:22 Respiratory Rate 25 H 08/01/16 10:22 Blood Pressure 133/59 08/01/16 10:22 O2 Sat by Pulse Oximetry (%) 98 08/01/16 09:56 Cardiovascular: Yes: Regular Rate and Rhythm Respiratory: Yes: Intubated, Mechanically Ventilated, Rhonchi Gastrointestinal: Yes: Normal Bowel Sounds, Soft Edema: No Labs: CBC, BMP 08/01/16 05:00 08/01/16 05:00 INR, PTT INR 1.57 (0.82-1.09) H 07/28/16 08:30 - ....Imaging Chest X-ray: Report Reviewed (Increased lung markings) Assessment/Plan 01/01/2015 Preserved LV fxn, mild MR, TR 12/29/2014 Nuc stress: Mod size inferior moderate ischemia, small zone of infarction, LVEF 41%, 07/28/3016 Mild decreased LV fxn, mild TR 1. s/p cardiopulmonary arrest with prolonged ROSC 2. Acute systolic failure with pulm edema resolved 3. CAD h/o [place], demand ischemia 4. Acute on CKD improving 5. Anoxic brain injury 6. COPD, PNA: s. pneumo P:1. SBT as tolerated, BD, maintained on empiric abx for aspiration PNA and steroids, neuro f/u appreciated, EEG c/w anoxic brain injury 2. Troponins have peaked 3. Resume Altace 5 qd once renal fxn stable, Lipitor 80 qhs, ASA 81 qd 4. Enteral feeds, DVT and GI prophylaxis, diuresis as needed, addressing GOC
--- NOTE | 2016-08-01 10:58 | PN ---
Progress Note (short form) - Note Progress Note: Renal follow up for CKD Pt seen and examined at the bedside on vent 35% FiO2 off sedation without improvement in mental status Vital Signs Temperature 95.9 F L 08/01/16 10:22 Pulse Rate 81 08/01/16 10:22 Respiratory Rate 25 H 08/01/16 10:22 Blood Pressure 133/59 08/01/16 10:22 O2 Sat by Pulse Oximetry (%) 98 08/01/16 09:56 Intake & Output 07/29/16 07/30/16 07/31/16 08/01/16 23:59 23:59 23:59 23:59 Intake Total 1438.9 792 887 346 Output Total 650 1150 1400 400 Balance 788.9 -358 -513 -54 Weight 156 lb 11.979 oz 156 lb 6.4 oz 149 lb 14.4 oz 150 lb 3.2 oz Gen: Intubated, sedated HEENT: NC/AT, ET tube in place CVS: RRR, No M/R Lungs: Dec BS lung bases, no rales Abd: soft NT/ND Ext: No edema, clubbing or cyanosis : no bladder distension, arias in place Neuro: Sedated CBC, BMP 08/01/16 05:00 08/01/16 05:00 Current Medications Acetaminophen (Tylenol Oral Solution -) 650 mg PO Q6H PRN PRN Reason: FEVER OR PAIN Last Admin: 07/31/16 22:11 Dose: 650 mg Albuterol Sulfate (Ventolin 0.083% Nebulizer Soln -) 1 amp NEB Q4H PRN PRN Reason: SHORT OF BREATH/WHEEZING Albuterol/Ipratropium (Duoneb -) 1 amp NEB TIDR [facility] Last Admin: 08/01/16 06:11 Dose: 1 amp Atorvastatin Calcium (Lipitor -) 80 mg PO HS [facility] Last Admin: 07/31/16 22:04 Dose: 80 mg Propofol (Diprivan -) 100 mls @ 2.79 mls/hr IVPB TITR [facility]; 5 MCG/KG/MIN PRN Reason: Protocol Last Admin: 08/01/16 05:04 Dose: 19.527 mls/hr Midazolam HCl 100 mg/ Sodium (Chloride) 100 mls @ 2 mls/hr IVPB TITR [facility]; 2 MG/ HR PRN Reason: Protocol Last Admin: 08/01/16 02:39 Dose: 4 mls/hr Pantoprazole Sodium (Protonix 40mg Ivpb (Pre-Docked)) 100 mls @ 200 mls/hr IVPB DAILY [facility] Last Admin: 08/01/16 09:15 Dose: 200 mls/hr Ceftriaxone Sodium (Rocephin 2gm Ivpb (Pre-Docked)) 100 mls @ 200 mls/hr IVPB DAILY [facility] Last Admin: 08/01/16 09:14 Dose: 200 mls/hr Insulin Aspart (Novolog Vial Sliding Scale -) 1 vial SQ TIDAC [facility] PRN Reason: Protocol Last Admin: 08/01/16 06:42 Dose: 6 units Insulin Detemir (Levemir Vial) 8 units SQ BIDI [facility] Last Admin: 08/01/16 06:41 Dose: 8 units Methylprednisolone Sodium Succinate (Solu-Medrol -) 40 mg IVPB Q8H-IV [facility] Last Admin: 08/01/16 09:16 Dose: 40 mg Midazolam HCl (Versed -) 2 mg IVPUSH Q2H PRN PRN Reason: AGITATION Last Admin: 07/29/16 13:45 Dose: 2 mg A/P 66 year old Gentleman with PMhx of CKD Stage 3 (baseline Cr 2, eGFR 33), Hypertension, DM, CAD s/p AK, PVD who presented s/p Cardiac Arrest at home s/p resuscitation and now in ICU on Vent. #Cardiac Arrest Continue management as per ICU, Cardiology Neurology follow up for anoxic injury #CKD stage 3 Renal function stable continue to trend renal function and electrolytes #Hx of Hypertension BP stable off Antihypertensives #Suspected PNA/Fever continue emperic Abx f/u cultures ID following Ham Patel DO
--- NOTE | 2016-08-01 13:48 | PN ---
Physical Exam: SUBJECTIVE: Patient seen and examined at bedside in ICU. Intubated but removed sedation this morning. Still is not resposive to tactile or vebral stimuli. Minimally reactive pupils, minimal gag reflex. Will discuss goals of care with family. OBJECTIVE: Vital Signs Period Temp Pulse Resp BP Sys/Mercer Pulse Ox Last 24 Hr 95.9 F-101.3 F 75-104 22-28 112-151/56-65 96-98 GENERAL: Intubated & sedated, in no acute distress HEENT: Atraumatic, Minimally responsive pupils, No lymphadenopathy noted, moist membranes LUNGS: diminished breath sounds bilaterally (R>L) HEART: Regular rate and rhythm, S1, S2 without murmur, rub or gallop. ABDOMEN: Soft, nontender, nondistended, normoactive EXTREMITIES: 2+ pulses, warm, well-perfused, trace peripheral edema SKIN: Warm, dry, normal turgor, no rashes or lesions noted Laboratory Results - last 24 hr 07/28/16 07/31/16 07/31/16 03:45 05:24 11:28 WBC RBC Hgb Hct MCV MCHC RDW Plt Count MPV Neutrophils % Lymphocytes % Monocytes % Metamyelocytes Myelocytes Promyelocytes Platelet Estimate Anticoagulation Therapy Puncture Site ABG pH ABG pCO2 at Pt Temp ABG pO2 at Pt Temp ABG HCO3 ABG O2 Sat (Measured) ABG O2 Content ABG Base Excess George Test O2 Delivery Device Oxygen Flow Rate Vent Mode Vent Rate Mechanical Rate PEEP Pressure Support Vent Sodium Potassium Chloride Carbon Dioxide Anion Gap BUN Creatinine Creat Clearance w eGFR POC Glucometer > 400 192.30866 198.02390 Random Glucose Calcium Phosphorus Magnesium Total Bilirubin AST ALT Alkaline Phosphatase Total Protein Albumin 07/31/16 08/01/16 08/01/16 22:06 04:57 05:00 WBC 4.8 RBC 3.51 L Hgb 10.7 L Hct 31.2 L MCV 88.9 MCHC 34.4 RDW 13.6 Plt Count 207 D MPV 8.2 Neutrophils % 73.0 Lymphocytes % 20.0 D Monocytes % 4.0 Metamyelocytes 1 Myelocytes 1 Promyelocytes 1 Platelet Estimate Adequate Anticoagulation Therapy Puncture Site ABG pH ABG pCO2 at Pt Temp ABG pO2 at Pt Temp ABG HCO3 ABG O2 Sat (Measured) ABG O2 Content ABG Base Excess George Test O2 Delivery Device Oxygen Flow Rate Vent Mode Vent Rate Mechanical Rate PEEP Pressure Support Vent Sodium Potassium Chloride Carbon Dioxide Anion Gap BUN Creatinine Creat Clearance w eGFR POC Glucometer 292.86752 > 400 Random Glucose Calcium Phosphorus Magnesium Total Bilirubin AST ALT Alkaline Phosphatase Total Protein Albumin 08/01/16 08/01/16 05:00 07:05 WBC RBC Hgb Hct MCV MCHC RDW Plt Count MPV Neutrophils % Lymphocytes % Monocytes % Metamyelocytes Myelocytes Promyelocytes Platelet Estimate Anticoagulation Therapy Y Puncture Site Right radial ABG pH 7.40 ABG pCO2 at Pt Temp 43.5 ABG pO2 at Pt Temp 84.4 ABG HCO3 26.3 H ABG O2 Sat (Measured) 95.5 ABG O2 Content 14.8 L ABG Base Excess 1.8 George Test Positive O2 Delivery Device Vent Oxygen Flow Rate 35% Vent Mode A/c Vent Rate 22 Mechanical Rate Yes PEEP 5.0 Pressure Support Vent 375 Sodium 138 Potassium 4.6 Chloride 101 Carbon Dioxide 29 Anion Gap 8 BUN 39 H D Creatinine 1.5 H D Creat Clearance w eGFR 46.82 POC Glucometer Random Glucose 393 H* D Calcium 7.7 L Phosphorus 4.8 D Magnesium 2.8 H Total Bilirubin 0.4 D AST 68 H ALT 33 Alkaline Phosphatase 120 H D Total Protein 5.8 L Albumin 2.0 L Active Medications Generic Name Dose Route Start Last Admin Trade Name Freq PRN Reason Stop Dose Admin Acetaminophen 650 mg 07/31/16 14:59 07/31/16 22:11 Tylenol Oral Solution - PO 650 mg Q6H PRN Administration FEVER OR PAIN Albuterol Sulfate 1 amp 07/28/16 01:24 Ventolin 0.083% Nebulizer Soln - NEB Q4H PRN SHORT OF BREATH/WHEEZING Albuterol/Ipratropium 1 amp 07/28/16 06:00 08/01/16 06:11 Duoneb - NEB 1 amp TIDR VANESSA Administration Atorvastatin Calcium 80 mg 07/28/16 22:00 07/31/16 22:04 Lipitor - PO 80 mg HS VANESSA Administration Propofol 100 mls @ 2.79 mls/hr 07/27/16 22:15 08/01/16 05:04 Diprivan - IVPB 19.527 mls/hr TITR VANESSA Administration Protocol 5 MCG/KG/MIN Midazolam HCl 100 mg/ Sodium 100 mls @ 2 mls/hr 07/28/16 00:30 08/01/16 02:39 Chloride IVPB 4 mls/hr TITR VANESSA Administration Protocol 2 MG/HR Pantoprazole Sodium 100 mls @ 200 mls/hr 07/28/16 10:00 08/01/16 09:15 Protonix 40mg Ivpb (Pre-Docked) IVPB 200 mls/hr DAILY [facility] Administration Ceftriaxone Sodium 100 mls @ 200 mls/hr 07/28/16 15:00 08/01/16 09:14 Rocephin 2gm Ivpb (Pre-Docked) IVPB 200 mls/hr DAILY [facility] Administration Insulin Aspart 1 vial 07/28/16 07:00 08/01/16 12:55 Novolog Vial Sliding Scale - SQ 6 units TIDAC VANESSA Administration Protocol Insulin Detemir 8 units 08/01/16 07:00 08/01/16 06:41 Levemir Vial SQ 8 units BIDI [facility] Administration Methylprednisolone Sodium Succinate 40 mg 08/01/16 22:00 Solu-Medrol - IVPB BID [facility] Midazolam HCl 2 mg 07/29/16 13:42 07/29/16 13:45 Versed - IVPUSH 2 mg Q2H PRN Administration AGITATION ASSESSMENT/PLAN: 66 year old male with significant PMH of CKD III, HTN, DM, CAD s/p AR presented to ICU after being found unresponsive by . S/P Epi x6 before ROSC. #Acute Cardiac arrest, unknown etiology (ACS vs Aspiration PNA?); long time to ROSC -stable BP off pressors thus far -intubated, held sedatives as of this morning -troponins peaked at 1.53, now decreasing -goals of care need to be discussed further today; palliative care consulted -Neurology following -cardiology following #Possible Pneumonia, aspiration? -on Ceftriaxone -solumedrol tapered to BID today -Duonebs QIDR, Albuterol PRN -ID consult appreciated #Acute on Chronic Renal Failure -continue to monitor electrolytes -avoid nephrotoxic meds #Hyperlipidemia -continue Lipitor #DM -ISS w/ BGM Prophylaxis/FEN -SCD, PPI Visit type - Emergency Visit Emergency Visit: Yes ED Registration Date: 07/27/16 Care time: The patient presented to the Emergency Department on the above date and was hospitalized for further evaluation of their emergent condition. - New Patient This patient is new to me today: No - Critical Care Critical Care patient: Yes Total Critical Care Time (in minutes): 40 Critical Care Statement: The care of this patient involved high complexity decision making to prevent further life threatening deterioration of the patient 's condition and/or to evalute & treat vital organ system(s) failure or risk of failure.
--- NOTE | 2016-08-01 14:21 | PN ---
Teaching Attending Note Name of Resident: Inderjit Araiza ATTENDING PHYSICIAN STATEMENT I saw and evaluated the patient. I reviewed the resident's note and discussed the case with the resident. I agree with the resident's findings and plan as documented. SUBJECTIVE: Patient seen and examined in the ICU. Intubated. Currently off sedation -> poorly responsive and tachypneic. No pressors. No significant improvement. Intake & Output 07/29/16 07/30/16 07/31/16 08/01/16 23:59 23:59 23:59 23:59 Intake Total 1438.9 792 887 346 Output Total 650 1150 1400 400 Balance 788.9 -358 -513 -54 Weight 156 lb 11.979 oz 156 lb 6.4 oz 149 lb 14.4 oz 150 lb 3.2 oz Last Vital Signs Temp Pulse Resp BP Pulse Ox 96.5 F L 93 H 25 H 151/65 98 08/01/16 12:30 08/01/16 12:30 08/01/16 12:30 08/01/16 12:30 08/01/16 09:56 Active Medications Acetaminophen (Tylenol Oral Solution -) 650 mg PO Q6H PRN PRN Reason: FEVER OR PAIN Last Admin: 07/31/16 22:11 Dose: 650 mg Albuterol Sulfate (Ventolin 0.083% Nebulizer Soln -) 1 amp NEB Q4H PRN PRN Reason: SHORT OF BREATH/WHEEZING Albuterol/Ipratropium (Duoneb -) 1 amp NEB TIDR [facility] Last Admin: 08/01/16 06:11 Dose: 1 amp Atorvastatin Calcium (Lipitor -) 80 mg PO HS [facility] Last Admin: 07/31/16 22:04 Dose: 80 mg Propofol (Diprivan -) 100 mls @ 2.79 mls/hr IVPB TITR [facility]; 5 MCG/KG/MIN PRN Reason: Protocol Last Admin: 08/01/16 05:04 Dose: 19.527 mls/hr Midazolam HCl 100 mg/ Sodium (Chloride) 100 mls @ 2 mls/hr IVPB TITR [facility]; 2 MG/ HR PRN Reason: Protocol Last Admin: 08/01/16 02:39 Dose: 4 mls/hr Pantoprazole Sodium (Protonix 40mg Ivpb (Pre-Docked)) 100 mls @ 200 mls/hr IVPB DAILY [facility] Last Admin: 08/01/16 09:15 Dose: 200 mls/hr Ceftriaxone Sodium (Rocephin 2gm Ivpb (Pre-Docked)) 100 mls @ 200 mls/hr IVPB DAILY [facility] Last Admin: 08/01/16 09:14 Dose: 200 mls/hr Insulin Aspart (Novolog Vial Sliding Scale -) 1 vial SQ TIDAC [facility] PRN Reason: Protocol Last Admin: 08/01/16 12:55 Dose: 6 units Insulin Detemir (Levemir Vial) 8 units SQ BIDI [facility] Last Admin: 08/01/16 06:41 Dose: 8 units Methylprednisolone Sodium Succinate (Solu-Medrol -) 40 mg IVPB BID [facility] Midazolam HCl (Versed -) 2 mg IVPUSH Q2H PRN PRN Reason: AGITATION Last Admin: 07/29/16 13:45 Dose: 2 mg Constitutional: Yes: Intubated and poorly responsive Eyes: Yes: Other (pupils sluggish) HENT: Yes: Other (NGT with dark residual) Neck: Yes: WNL Cardiovascular: Yes: S1, S2, Other (sinus on tele) Respiratory: Yes: Diminished at the bases, bilateral rhonchi, Intubated / Ventilated Gastrointestinal: Yes: Normal Bowel Sounds, Soft, Abdomen, Obese, Distention ...Rectal Exam: Yes: Deferred Renal/: Yes: [place] Present Musculoskeletal: Yes: WNL Extremities: Yes: WNL Edema: No Peripheral Pulses WNL: Yes (+1 bilateral pedal pulses) Integumentary: Yes: Other (change in color lower sternal region) Neurological: Yes: Unresponsive Labs: Laboratory Results - last 24 hr 07/27/16 07/28/16 07/31/16 22:01 03:45 05:24 WBC RBC Hgb Hct MCV MCHC RDW Plt Count MPV Neutrophils % Lymphocytes % Monocytes % Metamyelocytes Myelocytes Promyelocytes Platelet Estimate Anticoagulation Therapy Puncture Site ABG pH ABG pCO2 at Pt Temp ABG pO2 at Pt Temp ABG HCO3 ABG O2 Sat (Measured) ABG O2 Content ABG Base Excess George Test O2 Delivery Device Oxygen Flow Rate Vent Mode Vent Rate Mechanical Rate PEEP Pressure Support Vent Sodium Potassium Chloride Carbon Dioxide Anion Gap BUN Creatinine Creat Clearance w eGFR POC Glucometer 397.42084 > 400 192.12989 Random Glucose Calcium Phosphorus Magnesium Total Bilirubin AST ALT Alkaline Phosphatase Total Protein Albumin 07/31/16 07/31/16 08/01/16 11:28 22:06 04:57 WBC RBC Hgb Hct MCV MCHC RDW Plt Count MPV Neutrophils % Lymphocytes % Monocytes % Metamyelocytes Myelocytes Promyelocytes Platelet Estimate Anticoagulation Therapy Puncture Site ABG pH ABG pCO2 at Pt Temp ABG pO2 at Pt Temp ABG HCO3 ABG O2 Sat (Measured) ABG O2 Content ABG Base Excess George Test O2 Delivery Device Oxygen Flow Rate Vent Mode Vent Rate Mechanical Rate PEEP Pressure Support Vent Sodium Potassium Chloride Carbon Dioxide Anion Gap BUN Creatinine Creat Clearance w eGFR POC Glucometer 198.76080 292.88518 > 400 Random Glucose Calcium Phosphorus Magnesium Total Bilirubin AST ALT Alkaline Phosphatase Total Protein Albumin 08/01/16 08/01/16 08/01/16 05:00 05:00 07:05 WBC 4.8 RBC 3.51 L Hgb 10.7 L Hct 31.2 L MCV 88.9 MCHC 34.4 RDW 13.6 Plt Count 207 D MPV 8.2 Neutrophils % 73.0 Lymphocytes % 20.0 D Monocytes % 4.0 Metamyelocytes 1 Myelocytes 1 Promyelocytes 1 Platelet Estimate Adequate Anticoagulation Therapy Y Puncture Site Right radial ABG pH 7.40 ABG pCO2 at Pt Temp 43.5 ABG pO2 at Pt Temp 84.4 ABG HCO3 26.3 H ABG O2 Sat (Measured) 95.5 ABG O2 Content 14.8 L ABG Base Excess 1.8 George Test Positive O2 Delivery Device Vent Oxygen Flow Rate 35% Vent Mode A/c Vent Rate 22 Mechanical Rate Yes PEEP 5.0 Pressure Support Vent 375 Sodium 138 Potassium 4.6 Chloride 101 Carbon Dioxide 29 Anion Gap 8 BUN 39 H D Creatinine 1.5 H D Creat Clearance w eGFR 46.82 POC Glucometer Random Glucose 393 H* D Calcium 7.7 L Phosphorus 4.8 D Magnesium 2.8 H Total Bilirubin 0.4 D AST 68 H ALT 33 Alkaline Phosphatase 120 H D Total Protein 5.8 L Albumin 2.0 L Assessment/Plan S/P Cardiac Arrest with prolonged ROSC Suspected SUNDAR Shock -> Cardiogenic +/- Septic COPD HTN DM (?) PNA CHF CAD Demand ischemia Acute on CKD PLAN: AC mode of vent ABX per ID Monitor off sedation ASA VTE prophylaxis Need discussions for GOC -> compassionate wean versus Trach Dr Dolan CCTime 35"
[2016-08-01] MEDS: ATORVASTATIN CA 80 MG TABLET (FP) PO SCH (22:40)
[2016-08-02 06:16] LABS: MCH 30.6 pg (25.7-33.7); MCHC 34.1 g/dl (32.0-35.9); MEAN CELL VOLUME 89.6 fl (80-96); MEAN PLT VOLUME 8.1 fl (7.5-11.1); PLATELET COUNT 254 K/MM3 (134-434); RDW 13.5 % (11.9-15.9); WHITE BLOOD COUNT 6.8 K/mm3 (4.0-10.0)
[2016-08-02] MEDS: MIDAZOLAM 100 MG in SODIUM CHLORIDE 100 ML IVPB SCH (06:20)
[2016-08-02] MEDS: INSULIN DETEMIR 100 UNITS/ML MDV SQ SCH ×2 (06:27→18:11)
[2016-08-02] MEDS: INSULIN SLIDING SCALE (NOVOLOG) 1 VIAL SQ SCH ×3 (06:28→18:10)
[2016-08-02 06:31] LABS: ALBUMIN 2.1 g/dl (3.4-5.0); BILIRUBIN,TOTAL 0.2 mg/dL (0.2-1.0); CREATININE 1.5 mg/dL (0.7-1.3); MAGNESIUM 2.8 mg/dL (1.8-2.4); PHOSPHOROUS 3.4 mg/dL (2.5-4.9); TOT PROT 6.2 g/dl (6.4-8.2)
[2016-08-02] MEDS: ALBUTEROL SO4 2.5/IPRATROPIUM 0.5 INH SOL 3 ML VIAL.NEB. NEB SCH ×3 (06:44→22:30)
--- NOTE | 2016-08-02 07:13 | PN ---
Progress Note (short form) - Note Progress Note: Chief Complaint: Events noted, notes reviewed, remains intubated, sedated and unresponsive History of Present Illness: Seen and examined in ICU. Events noted, notes reviewed, remains intubated, sedated and unresponsive Echocardiography dated 07/28/3016 revealed mild decreased LV function, mild TR Echocardiography dated 01/01/2015 revealed preserved LV function, mild MR and TR MPI study dated 12/29/2014 revealed moderate size inferior defect compatible with moderate ischemia with small zone of infarction, LVEF 41% on LV gating - Current Medication List Current Medications Acetaminophen (Tylenol Oral Solution -) 650 mg PO Q6H PRN PRN Reason: FEVER OR PAIN Last Admin: 07/31/16 22:11 Dose: 650 mg Albuterol Sulfate (Ventolin 0.083% Nebulizer Soln -) 1 amp NEB Q4H PRN PRN Reason: SHORT OF BREATH/WHEEZING Albuterol/Ipratropium (Duoneb -) 1 amp NEB TIDR VANESSA Last Admin: 08/02/16 06:44 Dose: 1 amp Atorvastatin Calcium (Lipitor -) 80 mg PO HS [facility] Last Admin: 08/01/16 22:40 Dose: 80 mg Propofol (Diprivan -) 100 mls @ 2.79 mls/hr IVPB TITR VANESSA; 5 MCG/KG/MIN PRN Reason: Protocol Last Admin: 08/01/16 22:41 Dose: 19.527 mls/hr Midazolam HCl 100 mg/ Sodium (Chloride) 100 mls @ 2 mls/hr IVPB TITR VANESSA; 2 MG/ HR PRN Reason: Protocol Last Admin: 08/02/16 06:20 Dose: 4 mls/hr Pantoprazole Sodium (Protonix 40mg Ivpb (Pre-Docked)) 100 mls @ 200 mls/hr IVPB DAILY [facility] Last Admin: 08/01/16 09:15 Dose: 200 mls/hr Ceftriaxone Sodium (Rocephin 2gm Ivpb (Pre-Docked)) 100 mls @ 200 mls/hr IVPB DAILY [facility] Last Admin: 08/01/16 09:14 Dose: 200 mls/hr Insulin Aspart (Novolog Vial Sliding Scale -) 1 vial SQ TIDAC [facility]ES[facility] PRN Reason: Protocol Last Admin: 08/02/16 06:28 Dose: 5 units Insulin Detemir (Levemir Vial) 8 units SQ BIDI [facility] Last Admin: 08/02/16 06:27 Dose: 8 units Methylprednisolone Sodium Succinate (Solu-Medrol -) 40 mg IVPB BID [facility] Last Admin: 08/01/16 22:41 Dose: 40 mg Midazolam HCl (Versed -) 2 mg IVPUSH Q2H PRN PRN Reason: AGITATION Last Admin: 07/29/16 13:45 Dose: 2 mg Review Of Systems: Unable to obtain, unresponsive - Objective Vital Signs: Last Vital Signs Temp Pulse Resp BP Pulse Ox 97.3 F L 76 22 131/61 99 08/02/16 06:00 08/02/16 06:00 08/02/16 06:00 08/02/16 06:00 08/02/16 01:02 Neck: Supple Negative JVD No Bruit Cardiovascular: S1 S2 Regular Rate and Rhythm Respiratory: Bilateral Scattered Rhonchi Diminished Breath Sounds at the Bases Gastrointestinal: Soft Benign Normal Bowel Sounds Ext: No Edema Labs: CBC, BMP 08/02/16 05:10 08/02/16 05:10 Assessment/Plan ASSESSMENT: 1. Post cardiopulmonary arrest with probable anoxic encephalopathy 2. Acute systolic LV failure with pulmonary edema, resolved 3. CAD with history of MT, angina pectoris evidence of demand ischemia 4. History of HTN 5. DM 6. Hypercholesterolemia 7. COPD/pneumonia 8. Acute on CKD resolving 9. Anemia PLAN: 1. Add B-Blockers, hemodynamics permitting 2. Resume Altace once renal function stabilized 3. Continue Lipitor 4. Add ASA 5. Antibiotics as per the primary team 6. Ventilator management as per the ICU team 7. Advanced directive to be discussed with the family considering patient's overall poor prognosis, considering the above noted clinical presentation and lack of neurological recovery Clover Sinclair M.D.
[2016-08-02 07:25] LABS: ALLENS TEST POSITIVE; ART PUNCT SITE RIGHT RADIAL; ARTERIAL BLD GAS O2 SATURATION 98.8 % (90-98.9); ARTERIAL BLOOD GAS BASE EXCESS 2.9 meq/l (-2-2); ARTERIAL BLOOD GAS HCO3 27.3 meq/L (22-26); ARTERIAL BLOOD GAS pH 7.42 (7.35-7.45); LPM/O2% 35; MECH. VENT. YES; PT. ON O2? YES; TYPE OF O2 VENT; VENT RATE 22; VT/PRESS 375
--- NOTE | 2016-08-02 09:28 | PN ---
Progress Note (short form) - Note Progress Note: NEUROLOGY FOLLOW-UP: Events reviewed and discussed with staff. Patient examined. Yesterday, was of propofol x 6 hrs. Staff relates spontaneous respirations with tachypnea (RR=40) and biting on the ET tube. Now, back on propofol. CT of head (07/30/16) reviewed: No heme or mass effect. Some reduction in gyral/ sulcal markings suggesting moderate, diffuse, edema. EXAM (on propofol): No response to pain. No spontaneous respirations. Pupils 4 mm, sluggishly reactive. Minimal EOM's to Doll's head Corneal's -/- Flaccid, areflexic, tetraplegia. Plantars silent. IMP: Severe, bilateral, cerebral dysfunction. C/W anoxic encephalopathy. No significant change from 07/30. Suggest: Continue supportive care. Repeat propofol holidays. Prognosis grave. Thank you very much, hCristian Christian MD
--- NOTE | 2016-08-02 10:17 | PN ---
Progress Note, Physician Chief Complaint: Events noted Remains intubated sedated No response after sedation was turned off no meaningful neurological recovery he has a mild gag reflex - Current Medication List Current Medications: Active Medications Acetaminophen (Tylenol Oral Solution -) 650 mg PO Q6H PRN PRN Reason: FEVER OR PAIN Last Admin: 07/31/16 22:11 Dose: 650 mg Albuterol Sulfate (Ventolin 0.083% Nebulizer Soln -) 1 amp NEB Q4H PRN PRN Reason: SHORT OF BREATH/WHEEZING Albuterol/Ipratropium (Duoneb -) 1 amp NEB TIDR [facility] Last Admin: 08/02/16 06:44 Dose: 1 amp Aspirin (Asa -) 81 mg NGT DAILY [facility] Atorvastatin Calcium (Lipitor -) 80 mg PO HS [facility] Last Admin: 08/01/16 22:40 Dose: 80 mg Propofol (Diprivan -) 100 mls @ 2.79 mls/hr IVPB TITR VANESSA; 5 MCG/KG/MIN PRN Reason: Protocol Last Admin: 08/01/16 22:41 Dose: 19.527 mls/hr Midazolam HCl 100 mg/ Sodium (Chloride) 100 mls @ 2 mls/hr IVPB TITR VANESSA; 2 MG/ HR PRN Reason: Protocol Last Admin: 08/02/16 06:20 Dose: 4 mls/hr Pantoprazole Sodium (Protonix 40mg Ivpb (Pre-Docked)) 100 mls @ 200 mls/hr IVPB DAILY [facility] Last Admin: 08/01/16 09:15 Dose: 200 mls/hr Ceftriaxone Sodium (Rocephin 2gm Ivpb (Pre-Docked)) 100 mls @ 200 mls/hr IVPB DAILY [facility] Last Admin: 08/01/16 09:14 Dose: 200 mls/hr Insulin Aspart (Novolog Vial Sliding Scale -) 1 vial SQ TIDAC [facility] PRN Reason: Protocol Last Admin: 08/02/16 06:28 Dose: 5 units Insulin Detemir (Levemir Vial) 8 units SQ BIDI [facility] Last Admin: 08/02/16 06:27 Dose: 8 units Levetiracetam (Keppra Injection -) 500 mg IVPB BID [facility] Methylprednisolone Sodium Succinate (Solu-Medrol -) 40 mg IVPB BID [facility] Last Admin: 08/01/16 22:41 Dose: 40 mg Metoprolol Tartrate (Lopressor -) 25 mg NGT BID [facility] Midazolam HCl (Versed -) 2 mg IVPUSH Q2H PRN PRN Reason: AGITATION Last Admin: 07/29/16 13:45 Dose: 2 mg - Objective Vital Signs: Vital Signs Temperature 97.3 F L 08/02/16 10:00 Pulse Rate 74 08/02/16 10:00 Respiratory Rate 22 08/02/16 10:00 Blood Pressure 120/57 08/02/16 10:00 O2 Sat by Pulse Oximetry (%) 99 08/02/16 01:02 Constitutional: Yes: No Distress, Other (intubated) Cardiovascular: Yes: Regular Rate and Rhythm Respiratory: Yes: Diminished Gastrointestinal: Yes: Normal Bowel Sounds, Soft. No: Distention Edema: No Edema: LLE: 1+, RLE: 1+ Neurological: Yes: Other (unresponsive) Labs: CBC, BMP 08/02/16 05:10 08/02/16 05:10 INR, PTT INR 1.57 (0.82-1.09) H 07/28/16 08:30 Assessment/Plan PLAN Cardiac arrest Anoxic brain in jury Strep pneumo positive Pneumonia Systolic CHF- decompensated CKD Diabetes HTN -- s/p Hypothermia protocol -- iv antibiotics -- ICU monitoring -- Chanel for seizure prophylaxis -- no pressors -- continue with care -- DVT prophylaxis - spoke with ICU attending and nurse, grave prognosis -- Dr Woodruff had spoken to pt's yesterday in detail and apparently the pt did not want to be on chronic life support if no chance of recovery time spent 30 min
--- NOTE | 2016-08-02 10:27 | PN ---
Progress Note (short form) - Note Progress Note: remains unresponsive remains intubated Vital Signs Period Temp Pulse Resp BP Sys/Mercer Pulse Ox Last 24 Hr 96.5 F-97.6 F 73-110 22-30 117-177/56-85 99-99 cor-rrr lungs decreased bs at bases abd soft,nt, no distention ext no edema CBC, BMP 08/02/16 05:10 08/02/16 05:10 Microbiology 07/28/16 00:00 Blood - Peripheral Venous Blood Culture - Final NO GROWTH AFTER 5 DAYS INCUBATION 07/27/16 22:04 Blood - Peripheral Venous Blood Culture - Final NO GROWTH AFTER 5 DAYS INCUBATION 07/28/16 15:25 Blood - Peripheral Venous Blood Culture - Preliminary NO GROWTH OBTAINED AFTER 96 HOURS, INCUBATION TO CONTINUE FOR 1 DAYS. 07/28/16 15:20 Blood - Peripheral Venous Blood Culture - Preliminary NO GROWTH OBTAINED AFTER 96 HOURS, INCUBATION TO CONTINUE FOR 1 DAYS. 07/28/16 01:00 Nasopharyngeal Swab Respiratory Virus Panel - Preliminary 07/28/16 01:00 Sputum - Endotrachea Suction/Ventilator Gram Stain - Final 07/28/16 01:00 Sputum - Endotrachea Suction/Ventilator Sputum Culture - Final Streptococcus Pneumoniae 07/27/16 22:45 Urine - Urine Clean Catch Urine Culture - Final NO GROWTH OBTAINED 07/28/16 01:00 Urine For Antigen Detection Legionella Antigen - Final 07/28/16 01:00 Urine For Antigen Detection Streptococcus pneumoniae Antigen (M - Final 07/28/16 01:00 Nasopharyngeal Swab Influenza Types A,B Antigen (JOE) - Final 07/28/16 01:00 Nasopharyngeal Swab - Final Current Medications Acetaminophen (Tylenol Oral Solution -) 650 mg PO Q6H PRN PRN Reason: FEVER OR PAIN Last Admin: 07/31/16 22:11 Dose: 650 mg Albuterol Sulfate (Ventolin 0.083% Nebulizer Soln -) 1 amp NEB Q4H PRN PRN Reason: SHORT OF BREATH/WHEEZING Albuterol/Ipratropium (Duoneb -) 1 amp NEB TIDR [facility] Last Admin: 08/02/16 06:44 Dose: 1 amp Aspirin (Asa -) 81 mg NGT DAILY [facility] Atorvastatin Calcium (Lipitor -) 80 mg PO HS [facility] Last Admin: 08/01/16 22:40 Dose: 80 mg Propofol (Diprivan -) 100 mls @ 2.79 mls/hr IVPB TITR [facility]; 5 MCG/KG/MIN PRN Reason: Protocol Last Admin: 08/01/16 22:41 Dose: 19.527 mls/hr Midazolam HCl 100 mg/ Sodium (Chloride) 100 mls @ 2 mls/hr IVPB TITR [facility]; 2 MG/ HR PRN Reason: Protocol Last Admin: 08/02/16 06:20 Dose: 4 mls/hr Pantoprazole Sodium (Protonix 40mg Ivpb (Pre-Docked)) 100 mls @ 200 mls/hr IVPB DAILY [facility] Last Admin: 08/01/16 09:15 Dose: 200 mls/hr Ceftriaxone Sodium (Rocephin 2gm Ivpb (Pre-Docked)) 100 mls @ 200 mls/hr IVPB DAILY [facility] Last Admin: 08/01/16 09:14 Dose: 200 mls/hr Insulin Aspart (Novolog Vial Sliding Scale -) 1 vial SQ TIDAC [facility] PRN Reason: Protocol Last Admin: 08/02/16 06:28 Dose: 5 units Insulin Detemir (Levemir Vial) 8 units SQ BIDI [facility] Last Admin: 08/02/16 06:27 Dose: 8 units Levetiracetam (Keppra Injection -) 500 mg IVPB BID [facility] Methylprednisolone Sodium Succinate (Solu-Medrol -) 40 mg IVPB BID [facility] Last Admin: 08/01/16 22:41 Dose: 40 mg Metoprolol Tartrate (Lopressor -) 25 mg NGT BID [facility] Midazolam HCl (Versed -) 2 mg IVPUSH Q2H PRN PRN Reason: AGITATION Last Admin: 07/29/16 13:45 Dose: 2 mg a/p s/p arrest- anoxia positive pneumococcal antigen and sputum culture!- continue ceftriaxone day #5 overall prognosis poor
[2016-08-02] MEDS: PANTOPRAZOLE SODIUM 100 ML IVPB SCH (10:57)
[2016-08-02] MEDS: CEFTRIAXONE 100 ML IVPB SCH (10:58)
[2016-08-02] MEDS: PROPOFOL 100 ML IVPB SCH ×3 (11:03→23:48)
[2016-08-02] MEDS: METOPROLOL TARTRATE 25 MG TABLET (FP) NGT SCH ×2 (11:04→21:02)
[2016-08-02] MEDS: ASPIRIN 81 MG CHEWABLE TABLETS NGT SCH (11:04)
[2016-08-02] MEDS: levETIRAcetam 500 MG/5 ML INJECTION VIAL IVPB SCH ×2 (11:04→21:02)
[2016-08-02] MEDS: methylPREDNISolone NA SUCC 40 MG/1 ML VIAL IVPB SCH ×2 (13:10→21:02)
--- NOTE | 2016-08-02 14:39 | PN ---
Progress Note (short form) - Note Progress Note: Patient seen and examined in the ICU. Intubated and sedated. Neurology follow up noted. No pressors. No significant improvement. Intake & Output 07/30/16 07/31/16 08/01/16 08/02/16 23:59 23:59 23:59 23:59 Intake Total 792 887 773 796 Output Total 1150 8647 587 4046 Balance -358 -513 23 -1004 Weight 156 lb 6.4 oz 149 lb 14.4 oz 150 lb 3.2 oz 147 lb 1 oz Last Vital Signs Temp Pulse Resp BP Pulse Ox 97.3 F L 74 22 139/67 98 08/02/16 13:39 08/02/16 13:39 08/02/16 14:19 08/02/16 13:39 08/02/16 10:30 Active Medications Acetaminophen (Tylenol Oral Solution -) 650 mg PO Q6H PRN PRN Reason: FEVER OR PAIN Last Admin: 07/31/16 22:11 Dose: 650 mg Albuterol Sulfate (Ventolin 0.083% Nebulizer Soln -) 1 amp NEB Q4H PRN PRN Reason: SHORT OF BREATH/WHEEZING Albuterol/Ipratropium (Duoneb -) 1 amp NEB TIDR [facility] Last Admin: 08/02/16 13:23 Dose: 1 amp Aspirin (Asa -) 81 mg NGT DAILY [facility] Last Admin: 08/02/16 11:04 Dose: 81 mg Atorvastatin Calcium (Lipitor -) 80 mg PO HS [facility] Last Admin: 08/01/16 22:40 Dose: 80 mg Propofol (Diprivan -) 100 mls @ 2.79 mls/hr IVPB TITR [facility]; 5 MCG/KG/MIN PRN Reason: Protocol Last Admin: 08/02/16 11:03 Dose: 14 mls/hr Midazolam HCl 100 mg/ Sodium (Chloride) 100 mls @ 2 mls/hr IVPB TITR [facility]; 2 MG/ HR PRN Reason: Protocol Last Admin: 08/02/16 06:20 Dose: 4 mls/hr Pantoprazole Sodium (Protonix 40mg Ivpb (Pre-Docked)) 100 mls @ 200 mls/hr IVPB DAILY [facility] Last Admin: 08/02/16 10:57 Dose: 200 mls/hr Ceftriaxone Sodium (Rocephin 2gm Ivpb (Pre-Docked)) 100 mls @ 200 mls/hr IVPB DAILY [facility] Last Admin: 08/02/16 10:58 Dose: 200 mls/hr Insulin Aspart (Novolog Vial Sliding Scale -) 1 vial SQ TIDAC [facility] PRN Reason: Protocol Last Admin: 08/02/16 13:09 Dose: 6 units Insulin Detemir (Levemir Vial) 8 units SQ BIDI [facility] Last Admin: 08/02/16 06:27 Dose: 8 units Levetiracetam (Keppra Injection -) 500 mg IVPB BID [facility] Last Admin: 08/02/16 11:04 Dose: 500 mg Methylprednisolone Sodium Succinate (Solu-Medrol -) 40 mg IVPB BID [facility] Last Admin: 08/02/16 13:10 Dose: 40 mg Metoprolol Tartrate (Lopressor -) 25 mg NGT BID [facility] Last Admin: 08/02/16 11:04 Dose: 25 mg Midazolam HCl (Versed -) 2 mg IVPUSH Q2H PRN PRN Reason: AGITATION Last Admin: 07/29/16 13:45 Dose: 2 mg Constitutional: Yes: Intubated and poorly responsive Eyes: Yes: Other (pupils sluggish) HENT: Yes: Other (NGT with dark residual) Neck: Yes: WNL Cardiovascular: Yes: S1, S2, Other (sinus on tele) Respiratory: Yes: Diminished at the bases, bilateral rhonchi, Intubated / Ventilated Gastrointestinal: Yes: Normal Bowel Sounds, Soft, Abdomen, Obese, Distention ...Rectal Exam: Yes: Deferred Renal/: Yes: [place] Present Musculoskeletal: Yes: WNL Extremities: Yes: WNL Edema: No Peripheral Pulses WNL: Yes (+1 bilateral pedal pulses) Integumentary: Yes: Other (change in color lower sternal region) Neurological: Yes: Unresponsive Labs: Laboratory Results - last 24 hr 08/02/16 08/02/16 08/02/16 05:10 05:10 07:10 WBC 6.8 D RBC 3.69 L Hgb 11.3 L Hct 33.1 L MCV 89.6 MCHC 34.1 RDW 13.5 Plt Count 254 D MPV 8.1 Neutrophils % 80.0 Lymphocytes % 11.0 D Monocytes % 6.0 Band Neutrophils 2.0 Myelocytes 1 Differential Comment Manual diff done Anticoagulation Therapy Y Puncture Site Right radial ABG pH 7.42 ABG pCO2 at Pt Temp 43.0 ABG pO2 at Pt Temp 136.0 H D ABG HCO3 27.3 H ABG O2 Sat (Measured) 98.8 ABG O2 Content 15.2 ABG Base Excess 2.9 H George Test Positive O2 Delivery Device Vent Oxygen Flow Rate 35 Vent Mode A/c Vent Rate 22 Mechanical Rate Yes PEEP 5.0 Pressure Support Vent 375 Sodium 138 Potassium 5.0 Chloride 103 Carbon Dioxide 31 Anion Gap 4 L BUN 52 H D Creatinine 1.5 H Creat Clearance w eGFR 46.82 Random Glucose 509 H* D Calcium 8.0 L Phosphorus 3.4 D Magnesium 2.8 H Total Bilirubin 0.2 D AST 54 H D ALT 44 D Alkaline Phosphatase 119 H Total Protein 6.2 L Albumin 2.1 L Assessment/Plan S/P Cardiac Arrest with prolonged ROSC Suspected SUNDAR Shock -> Cardiogenic +/- Septic COPD HTN DM (?) PNA CHF CAD Demand ischemia Acute on CKD PLAN: AC mode of vent ABX per ID Sedation vacations ASA VTE prophylaxis Long discussion with the patient's , daughter, and son. The reports that she has had conversations with her about serious illness and the need for prolonged life support. She is clear that he would not want to be kept alive by chronic life support in the event that he could not return to his quality of life. I explained that given his prolonged asystole time and time for ROSC, that he will not to his premorbid condition and will require prolonged mechanical support with a minimal chance of any significant neurologic improvement. Family will decide on further C Dr Dolan CCTime 35"
--- NOTE | 2016-08-02 18:34 | PN ---
Progress Note (short form) - Note Progress Note: Renal follow up for CKD Pt seen and examined at the bedside sedated on the vent FiO2 35% not on pressers Vital Signs Temperature 97.3 F L 08/02/16 14:00 Pulse Rate 74 08/02/16 14:00 Respiratory Rate 22 08/02/16 16:15 Blood Pressure 139/67 08/02/16 14:00 O2 Sat by Pulse Oximetry (%) 98 08/02/16 10:30 Intake & Output 07/30/16 07/31/16 08/01/16 08/02/16 23:59 23:59 23:59 23:59 Intake Total 792 887 773 796 Output Total 1150 8708 265 6246 Balance -358 -513 23 -1004 Weight 156 lb 6.4 oz 149 lb 14.4 oz 150 lb 3.2 oz 147 lb 1 oz Gen: Intubated, sedated HEENT: NC/AT, ET tube in place CVS: RRR, No M/R Lungs: Dec BS lung bases, no rales Abd: soft NT/ND Ext: No edema, clubbing or cyanosis Neuro: Sedated CBC, BMP 08/02/16 05:10 08/02/16 05:10 Current Medications Acetaminophen (Tylenol Oral Solution -) 650 mg PO Q6H PRN PRN Reason: FEVER OR PAIN Last Admin: 07/31/16 22:11 Dose: 650 mg Albuterol Sulfate (Ventolin 0.083% Nebulizer Soln -) 1 amp NEB Q4H PRN PRN Reason: SHORT OF BREATH/WHEEZING Albuterol/Ipratropium (Duoneb -) 1 amp NEB TIDR [facility] Last Admin: 08/02/16 13:23 Dose: 1 amp Aspirin (Asa -) 81 mg NGT DAILY [facility] Last Admin: 08/02/16 11:04 Dose: 81 mg Atorvastatin Calcium (Lipitor -) 80 mg PO HS [facility] Last Admin: 08/01/16 22:40 Dose: 80 mg Propofol (Diprivan -) 100 mls @ 2.79 mls/hr IVPB TITR [facility]; 5 MCG/KG/MIN PRN Reason: Protocol Last Admin: 08/02/16 11:03 Dose: 14 mls/hr Midazolam HCl 100 mg/ Sodium (Chloride) 100 mls @ 2 mls/hr IVPB TITR [facility]; 2 MG/ HR PRN Reason: Protocol Last Admin: 08/02/16 06:20 Dose: 4 mls/hr Pantoprazole Sodium (Protonix 40mg Ivpb (Pre-Docked)) 100 mls @ 200 mls/hr IVPB DAILY [facility] Last Admin: 08/02/16 10:57 Dose: 200 mls/hr Ceftriaxone Sodium (Rocephin 2gm Ivpb (Pre-Docked)) 100 mls @ 200 mls/hr IVPB DAILY [facility] Last Admin: 08/02/16 10:58 Dose: 200 mls/hr Insulin Aspart (Novolog Vial Sliding Scale -) 1 vial SQ TIDAC [facility] PRN Reason: Protocol Last Admin: 08/02/16 13:09 Dose: 6 units Insulin Detemir (Levemir Vial) 8 units SQ BIDI [facility] Last Admin: 08/02/16 06:27 Dose: 8 units Levetiracetam (Keppra Injection -) 500 mg IVPB BID [facility] Last Admin: 08/02/16 11:04 Dose: 500 mg Methylprednisolone Sodium Succinate (Solu-Medrol -) 40 mg IVPB BID [facility] Last Admin: 08/02/16 13:10 Dose: 40 mg Metoprolol Tartrate (Lopressor -) 25 mg NGT BID [facility] Last Admin: 08/02/16 11:04 Dose: 25 mg Midazolam HCl (Versed -) 2 mg IVPUSH Q2H PRN PRN Reason: AGITATION Last Admin: 07/29/16 13:45 Dose: 2 mg A/P 66 year old Gentleman with PMhx of CKD Stage 3 (baseline Cr 2, eGFR 33), Hypertension, DM, CAD s/p ID, PVD who presented s/p Cardiac Arrest at home s/p resuscitation and now in ICU on Vent. #Cardiac Arrest Continue management as per ICU, Cardiology remains sedated on the vent BP stable #CKD stage 3 Renal function stable BUN elevated, Cr stable good urine output #PNA/Fever continue Ceftiaxone as per SERAFIN Patel DO
[2016-08-02] MEDS: ATORVASTATIN CA 80 MG TABLET (FP) PO SCH (21:02)
[2016-08-02] MEDS: ACETAMINOPHEN 650 MG/20.3 ML ORAL SOLUTION (CUPS) PO PRN (21:04)
[2016-08-02] MEDS: CHLORHEXIDINE GLUCONATE 0.12% 15ML CUP MM SCH (21:42)
[2016-08-03] MEDS: MIDAZOLAM 100 MG in SODIUM CHLORIDE 100 ML IVPB SCH
[2016-08-03 05:31] LABS: MCH 30.3 pg (25.7-33.7); MCHC 33.4 g/dl (32.0-35.9); MEAN CELL VOLUME 90.8 fl (80-96); MEAN PLT VOLUME 8.2 fl (7.5-11.1); PLATELET COUNT 264 K/MM3 (134-434); RDW 13.7 % (11.9-15.9); WHITE BLOOD COUNT 9.4 K/mm3 (4.0-10.0)
[2016-08-03 05:47] LABS: CREATININE 1.7 mg/dL (0.7-1.3); MAGNESIUM 2.8 mg/dL (1.8-2.4); PHOSPHOROUS 3.1 mg/dL (2.5-4.9)
[2016-08-03] MEDS ORDERED: INSULIN REGULAR HUMAN 100 UNITS/ML *VIAL IVPUSH ONE (05:53)
[2016-08-03] MEDS: INSULIN DETEMIR 100 UNITS/ML MDV SQ SCH ×2 (06:00→18:32)
[2016-08-03] MEDS: ALBUTEROL SO4 2.5/IPRATROPIUM 0.5 INH SOL 3 ML VIAL.NEB. NEB SCH ×3 (06:09→22:34)
[2016-08-03] MEDS: INSULIN SLIDING SCALE (NOVOLOG) 1 VIAL SQ SCH ×2 (06:45→18:31)
--- NOTE | 2016-08-03 07:31 | PN ---
Progress Note, Physician Chief Complaint: ID Remains unresponsive on the ventilator Ceftriaxone day 6 ( positive pneumococcal Ag) Now low grade temps 100.6 Vent dependent - Current Medication List Current Medications: Active Medications Acetaminophen (Tylenol Oral Solution -) 650 mg PO Q6H PRN PRN Reason: FEVER OR PAIN Last Admin: 08/02/16 21:04 Dose: 650 mg Albuterol Sulfate (Ventolin 0.083% Nebulizer Soln -) 1 amp NEB Q4H PRN PRN Reason: SHORT OF BREATH/WHEEZING Albuterol/Ipratropium (Duoneb -) 1 amp NEB TIDR [facility] Last Admin: 08/03/16 06:09 Dose: 1 amp Aspirin (Asa -) 81 mg NGT DAILY [facility] Last Admin: 08/02/16 11:04 Dose: 81 mg Atorvastatin Calcium (Lipitor -) 80 mg PO HS [facility] Last Admin: 08/02/16 21:02 Dose: 80 mg Chlorhexidine Gluconate (Peridex -) 15 ml MM BID [facility] Last Admin: 08/02/16 21:42 Dose: 15 ml Propofol (Diprivan -) 100 mls @ 2.79 mls/hr IVPB TITR [facility]; 5 MCG/KG/MIN PRN Reason: Protocol Last Admin: 08/02/16 23:48 Dose: Not Given Midazolam HCl 100 mg/ Sodium (Chloride) 100 mls @ 2 mls/hr IVPB TITR [facility]; 2 MG/ HR PRN Reason: Protocol Last Admin: 08/03/16 00:00 Dose: 4 mls/hr Pantoprazole Sodium (Protonix 40mg Ivpb (Pre-Docked)) 100 mls @ 200 mls/hr IVPB DAILY [facility] Last Admin: 08/02/16 10:57 Dose: 200 mls/hr Ceftriaxone Sodium (Rocephin 2gm Ivpb (Pre-Docked)) 100 mls @ 200 mls/hr IVPB DAILY [facility] Last Admin: 08/02/16 10:58 Dose: 200 mls/hr Insulin Aspart (Novolog Vial Sliding Scale -) 1 vial SQ TIDAC [facility] PRN Reason: Protocol Last Admin: 08/02/16 18:10 Dose: 6 units Insulin Detemir (Levemir Vial) 10 units SQ BIDI [facility] Last Admin: 08/03/16 06:00 Dose: 10 units Levetiracetam (Keppra Injection -) 500 mg IVPB BID [facility] Last Admin: 08/02/16 21:02 Dose: 500 mg Methylprednisolone Sodium Succinate (Solu-Medrol -) 40 mg IVPB BID [facility] Last Admin: 08/02/16 21:02 Dose: 40 mg Metoprolol Tartrate (Lopressor -) 25 mg NGT BID [facility] Last Admin: 08/02/16 21:02 Dose: 25 mg Midazolam HCl (Versed -) 2 mg IVPUSH Q2H PRN PRN Reason: AGITATION Last Admin: 07/29/16 13:45 Dose: 2 mg - Objective Vital Signs: Vital Signs Temperature 100.3 F H 08/03/16 06:00 Pulse Rate 88 08/03/16 06:00 Respiratory Rate 22 08/03/16 06:57 Blood Pressure 162/71 08/03/16 06:00 O2 Sat by Pulse Oximetry (%) 98 08/02/16 22:00 Constitutional: Yes: Other (INtubated) Eyes: Yes: WNL, Conjunctiva Clear HENT: Yes: WNL Neck: Yes: WNL, Supple, Trachea Midline Cardiovascular: Yes: Regular Rate and Rhythm, S1, S2. No: Pulse Irregular, Murmur Respiratory: Yes: WNL, Regular, CTA Bilaterally. No: Rales, Rhonchi Gastrointestinal: Yes: WNL, Normal Bowel Sounds. No: Splenomegaly, Tenderness, Tenderness, Rebound Extremities: No: Cold, Cool, Cyanosis Edema: No Labs: CBC, BMP 08/03/16 05:00 08/03/16 05:00 INR, PTT INR 1.57 (0.82-1.09) H 07/28/16 08:30 Assessment/Plan Laboratory Tests 07/28/16 07/28/16 08/02/16 08:30 15:15 05:10 WBC Hgb Hct Plt Count INR 1.57 H ABG pH ABG pCO2 at Pt Temp ABG pO2 at Pt Temp Oxygen Flow Rate Random Glucose AST 54 H D ALT 44 D Alkaline Phosphatase 119 H Opiates Screen Positive Benzodiazepines Screen Positive 08/02/16 08/03/16 08/03/16 07:10 05:00 05:00 WBC 9.4 D Hgb 11.5 L Hct 34.3 L Plt Count 264 INR ABG pH 7.42 ABG pCO2 at Pt Temp 43.0 ABG pO2 at Pt Temp 136.0 H D Oxygen Flow Rate 35 Random Glucose 598 H* AST ALT Alkaline Phosphatase Opiates Screen Benzodiazepines Screen Assessment Post cardiac arrest Pulmonary edema resolved COPD by history Coronary artery disease Positive pneumococcal antigen ( yet no clear infiltrate seen) now day 6 antibiotics Anoxic encephalopathy Acute kidney injury Low grade temps Plan At this point patient has received almost a week based on a positive pneumococcal antigen absent clear pneumonia Has low grade temps now 100.6. Brain injury from anoxia the central issue now. Would stop antibiotics and see the temps go.
[2016-08-03 07:32] LABS: ARTERIAL BLD GAS O2 SATURATION 97.6 % (90-98.9); ARTERIAL BLOOD GAS BASE EXCESS 3.1 meq/l (-2-2); ARTERIAL BLOOD GAS HCO3 28.6 meq/L (22-26); ARTERIAL BLOOD GAS pH 7.37 (7.35-7.45)
[2016-08-03] MEDS ORDERED: CEFTRIAXONE 1 GM in DEXTROSE 5%-WATER - 50 ML IVPB ONE (07:32)
[2016-08-03 07:33] LABS: ALLENS TEST POSITIVE; ART PUNCT SITE RIGHT RADIAL; LPM/O2% 35%; PT. ON O2? YES
[2016-08-03 07:34] LABS: TYPE OF O2 MEC.VENT; VENT RATE 22; VT/PRESS 375
[2016-08-03] MEDS ORDERED: CEFTRIAXONE 50 ML IVPB ONE ×2 (07:36→09:00)
--- NOTE | 2016-08-03 09:34 | PN ---
Progress Note, Physician Chief Complaint: Events noted Remains intubated sedated No response after sedation was turned off no meaningful neurological recovery family decided for pt to be DNR- not decided yet about terminal weaning or trach - Current Medication List Current Medications: Active Medications Acetaminophen (Tylenol Oral Solution -) 650 mg PO Q6H PRN PRN Reason: FEVER OR PAIN Last Admin: 08/02/16 21:04 Dose: 650 mg Albuterol Sulfate (Ventolin 0.083% Nebulizer Soln -) 1 amp NEB Q4H PRN PRN Reason: SHORT OF BREATH/WHEEZING Albuterol/Ipratropium (Duoneb -) 1 amp NEB TIDR [facility] Last Admin: 08/03/16 06:09 Dose: 1 amp Aspirin (Asa -) 81 mg NGT DAILY [facility] Last Admin: 08/02/16 11:04 Dose: 81 mg Atorvastatin Calcium (Lipitor -) 80 mg PO HS [facility] Last Admin: 08/02/16 21:02 Dose: 80 mg Chlorhexidine Gluconate (Peridex -) 15 ml MM BID [facility] Last Admin: 08/02/16 21:42 Dose: 15 ml Propofol (Diprivan -) 100 mls @ 2.79 mls/hr IVPB TITR [facility]; 5 MCG/KG/MIN PRN Reason: Protocol Last Admin: 08/02/16 23:48 Dose: Not Given Midazolam HCl 100 mg/ Sodium (Chloride) 100 mls @ 2 mls/hr IVPB TITR [facility]; 2 MG/ HR PRN Reason: Protocol Last Admin: 08/03/16 00:00 Dose: 4 mls/hr Pantoprazole Sodium (Protonix 40mg Ivpb (Pre-Docked)) 100 mls @ 200 mls/hr IVPB DAILY [facility] Last Admin: 08/02/16 10:57 Dose: 200 mls/hr Insulin Aspart (Novolog Vial Sliding Scale -) 1 vial SQ TIDAC [facility] PRN Reason: Protocol Last Admin: 08/02/16 18:10 Dose: 6 units Insulin Detemir (Levemir Vial) 10 units SQ BIDI [facility] Last Admin: 08/03/16 06:00 Dose: 10 units Levetiracetam (Keppra Injection -) 500 mg IVPB BID [facility] Last Admin: 08/02/16 21:02 Dose: 500 mg Methylprednisolone Sodium Succinate (Solu-Medrol -) 40 mg IVPB DAILY [facility] Metoprolol Tartrate (Lopressor -) 25 mg NGT BID [facility] Last Admin: 08/02/16 21:02 Dose: 25 mg Midazolam HCl (Versed -) 2 mg IVPUSH Q2H PRN PRN Reason: AGITATION Last Admin: 07/29/16 13:45 Dose: 2 mg - Objective Vital Signs: Vital Signs Temperature 100.3 F H 08/03/16 06:00 Pulse Rate 98 H 08/03/16 08:00 Respiratory Rate 22 08/03/16 08:00 Blood Pressure 127/58 08/03/16 08:00 O2 Sat by Pulse Oximetry (%) 98 08/02/16 22:00 Constitutional: Yes: Other (intubated) Cardiovascular: Yes: Regular Rate and Rhythm Respiratory: Yes: Diminished Gastrointestinal: Yes: Normal Bowel Sounds, Soft. No: Distention Edema: No Labs: CBC, BMP 08/03/16 05:00 INR, PTT INR 1.57 (0.82-1.09) H 07/28/16 08:30 Assessment/Plan PLAN Cardiac arrest Anoxic brain in jury Strep pneumo positive Pneumonia Systolic CHF- decompensated CKD Diabetes HTN -- iv antibiotics discontinued Per ID-- pt completed course for strep pneumo -- ICU monitoring -- Chanel for seizure prophylaxis -- no pressors -- continue with care -- DVT prophylaxis - spoke with ICU attending and nurse, grave prognosis -- Dr Woodruff had spoken to pt's yesterday in detail and apparently the pt did not want to be on chronic life support if no chance of recovery -- spoke with palliative care nurse time spent 30 min
[2016-08-03] MEDS ORDERED: methylPREDNISolone NA SUCC 40 MG/1 ML VIAL IVPB SCH (10:00)
--- NOTE | 2016-08-03 10:33 | PN ---
Progress Note (short form) - Note Progress Note: Renal follow up for CKD Pt seen and examined at the bedside no change in mental status as per nurse trial off sedation this am on Vent, sedated now Vital Signs Temperature 97.6 F 08/03/16 10:00 Pulse Rate 96 H 08/03/16 10:00 Respiratory Rate 22 08/03/16 10:00 Blood Pressure 142/60 08/03/16 10:00 O2 Sat by Pulse Oximetry (%) 98 08/02/16 22:00 Intake & Output 07/31/16 08/01/16 08/02/16 08/03/16 23:59 23:59 23:59 23:59 Intake Total 818 744 7155 128 Output Total 2029 824 4935 1000 Balance -513 23 -471 -872 Weight 149 lb 14.4 oz 150 lb 3.2 oz 147 lb 1 oz 145 lb 4 oz Gen: Intubated, sedated HEENT: NC/AT, ET tube in place CVS: RRR, No M/R Lungs: Dec BS lung bases, no rales Abd: soft NT/ND Ext: No edema, clubbing or cyanosis Neuro: Sedated CBC, BMP 08/03/16 05:00 08/03/16 09:20 Current Medications Acetaminophen (Tylenol Oral Solution -) 650 mg PO Q6H PRN PRN Reason: FEVER OR PAIN Last Admin: 08/02/16 21:04 Dose: 650 mg Albuterol Sulfate (Ventolin 0.083% Nebulizer Soln -) 1 amp NEB Q4H PRN PRN Reason: SHORT OF BREATH/WHEEZING Albuterol/Ipratropium (Duoneb -) 1 amp NEB TIDR [facility] Last Admin: 08/03/16 06:09 Dose: 1 amp Aspirin (Asa -) 81 mg NGT DAILY [facility] Last Admin: 08/02/16 11:04 Dose: 81 mg Atorvastatin Calcium (Lipitor -) 80 mg PO HS [facility] Last Admin: 08/02/16 21:02 Dose: 80 mg Chlorhexidine Gluconate (Peridex -) 15 ml MM BID [facility] Last Admin: 08/02/16 21:42 Dose: 15 ml Propofol (Diprivan -) 100 mls @ 2.79 mls/hr IVPB TITR [facility]; 5 MCG/KG/MIN PRN Reason: Protocol Last Admin: 08/02/16 23:48 Dose: Not Given Midazolam HCl 100 mg/ Sodium (Chloride) 100 mls @ 2 mls/hr IVPB TITR [facility]; 2 MG/ HR PRN Reason: Protocol Last Admin: 08/03/16 00:00 Dose: 4 mls/hr Pantoprazole Sodium (Protonix 40mg Ivpb (Pre-Docked)) 100 mls @ 200 mls/hr IVPB DAILY [facility] Last Admin: 08/02/16 10:57 Dose: 200 mls/hr Insulin Aspart (Novolog Vial Sliding Scale -) 1 vial SQ TIDAC [facility] PRN Reason: Protocol Last Admin: 08/02/16 18:10 Dose: 6 units Insulin Detemir (Levemir Vial) 10 units SQ BIDI [facility] Last Admin: 08/03/16 06:00 Dose: 10 units Levetiracetam (Keppra Injection -) 500 mg IVPB BID [facility] Last Admin: 08/02/16 21:02 Dose: 500 mg Methylprednisolone Sodium Succinate (Solu-Medrol -) 40 mg IVPB DAILY [facility] Metoprolol Tartrate (Lopressor -) 25 mg NGT BID [facility] Last Admin: 08/02/16 21:02 Dose: 25 mg Midazolam HCl (Versed -) 2 mg IVPUSH Q2H PRN PRN Reason: AGITATION Last Admin: 07/29/16 13:45 Dose: 2 mg A/P 66 year old Gentleman with PMhx of CKD Stage 3 (baseline Cr 2, eGFR 33), Hypertension, DM, CAD s/p ME, PVD who presented s/p Cardiac Arrest at home s/p resuscitation and now in ICU on Vent. #Cardiac Arrest witn suspected anoxic injury Continue management as per ICU, Cardiology Neurology follow up Vent support Sedation as needed #CKD stage 3 Renal function stable pt is non-oliguric High BUN secondary to steroids #PNA/Fever continue Ceftiaxone as per SERAFIN Patel DO
--- NOTE | 2016-08-03 10:41 | PN ---
Progress Note, Physician History of Present Illness: Unresponsive on vent back on sedation. - Current Medication List Current Medications: Active Medications Acetaminophen (Tylenol Oral Solution -) 650 mg PO Q6H PRN PRN Reason: FEVER OR PAIN Last Admin: 08/02/16 21:04 Dose: 650 mg Albuterol Sulfate (Ventolin 0.083% Nebulizer Soln -) 1 amp NEB Q4H PRN PRN Reason: SHORT OF BREATH/WHEEZING Albuterol/Ipratropium (Duoneb -) 1 amp NEB TIDR [facility] Last Admin: 08/03/16 06:09 Dose: 1 amp Aspirin (Asa -) 81 mg NGT DAILY [facility] Last Admin: 08/02/16 11:04 Dose: 81 mg Atorvastatin Calcium (Lipitor -) 80 mg PO HS [facility] Last Admin: 08/02/16 21:02 Dose: 80 mg Chlorhexidine Gluconate (Peridex -) 15 ml MM BID [facility] Last Admin: 08/02/16 21:42 Dose: 15 ml Propofol (Diprivan -) 100 mls @ 2.79 mls/hr IVPB TITR [facility]; 5 MCG/KG/MIN PRN Reason: Protocol Last Admin: 08/02/16 23:48 Dose: Not Given Midazolam HCl 100 mg/ Sodium (Chloride) 100 mls @ 2 mls/hr IVPB TITR [facility]; 2 MG/ HR PRN Reason: Protocol Last Admin: 08/03/16 00:00 Dose: 4 mls/hr Pantoprazole Sodium (Protonix 40mg Ivpb (Pre-Docked)) 100 mls @ 200 mls/hr IVPB DAILY [facility] Last Admin: 08/02/16 10:57 Dose: 200 mls/hr Insulin Aspart (Novolog Vial Sliding Scale -) 1 vial SQ TIDAC [facility] PRN Reason: Protocol Last Admin: 08/02/16 18:10 Dose: 6 units Insulin Detemir (Levemir Vial) 10 units SQ BIDI [facility] Last Admin: 08/03/16 06:00 Dose: 10 units Levetiracetam (Keppra Injection -) 500 mg IVPB BID [facility] Last Admin: 08/02/16 21:02 Dose: 500 mg Methylprednisolone Sodium Succinate (Solu-Medrol -) 40 mg IVPB DAILY [facility] Metoprolol Tartrate (Lopressor -) 25 mg NGT BID [facility] Last Admin: 08/02/16 21:02 Dose: 25 mg Midazolam HCl (Versed -) 2 mg IVPUSH Q2H PRN PRN Reason: AGITATION Last Admin: 07/29/16 13:45 Dose: 2 mg - Objective Vital Signs: Vital Signs Temperature 97.6 F 08/03/16 10:00 Pulse Rate 96 H 08/03/16 10:00 Respiratory Rate 22 08/03/16 10:00 Blood Pressure 142/60 08/03/16 10:00 O2 Sat by Pulse Oximetry (%) 98 08/02/16 22:00 Constitutional: Yes: No Distress, Calm Neck: Yes: Supple Respiratory: Yes: Intubated, Mechanically Ventilated, Rhonchi Gastrointestinal: Yes: Normal Bowel Sounds, Soft Edema: No Labs: CBC, BMP 08/03/16 05:00 08/03/16 09:20 INR, PTT INR 1.57 (0.82-1.09) H 07/28/16 08:30 - ....Imaging Chest X-ray: Report Reviewed (Residual congestion) Assessment/Plan 01/01/2015 Preserved LV fxn, mild MR, TR 12/29/2014 Nuc stress: Mod size inferior moderate ischemia, small zone of infarction, LVEF 41%, 07/28/3016 Mild decreased LV fxn, mild TR 1. s/p cardiopulmonary arrest with prolonged ROSC 2. Acute systolic failure with pulm edema resolved 3. CAD h/o LA, demand ischemia 4. Acute on CKD improving 5. Anoxic brain injury 6. COPD, PNA: s. pneumo P:1. SBT as tolerated, BD, maintained on empiric abx for aspiration PNA and steroids, neuro f/u appreciated, EEG c/w anoxic brain injury 2. Troponins have peaked 3. Resume Altace 5 qd once renal fxn stable, continue Lopressor 25 bid, Lipitor 80 qhs, ASA 81 qd 4. Enteral feeds, DVT and GI prophylaxis, diuresis as needed, addressing GOC
--- NOTE | 2016-08-03 11:04 | PN ---
Physical Exam: SUBJECTIVE: Patient seen and examined at bedside in ICU. Intubated & sedated with no change in physical exam. Goals of care discussed with family yesterday, patient made DNR. Will have further disucssions today about compassionate weaning vs tracheotomy placement. OBJECTIVE: Vital Signs Period Temp Pulse Resp BP Sys/Mercer Pulse Ox Last 24 Hr 97.3 F-100.6 F 74-98 20-23 127-162/58-71 98-98 GENERAL: Intubated & sedated, in no acute distress HEENT: Atraumatic, Minimally responsive pupils, No lymphadenopathy noted, moist membranes LUNGS: diminished breath sounds bilaterally (R>L) HEART: Regular rate and rhythm, S1, S2 without murmur, rub or gallop. ABDOMEN: Soft, nontender, nondistended, normoactive EXTREMITIES: 2+ pulses, warm, well-perfused, trace peripheral edema SKIN: Warm, dry, normal turgor, no rashes or lesions noted Laboratory Results - last 24 hr 08/01/16 08/01/16 08/03/16 12:50 16:54 05:00 WBC 9.4 D RBC 3.78 L Hgb 11.5 L Hct 34.3 L MCV 90.8 MCHC 33.4 RDW 13.7 Plt Count 264 MPV 8.2 Neutrophils % 81.0 Lymphocytes % 12.0 Monocytes % 6.0 Band Neutrophils 1.0 D Puncture Site ABG pH ABG pCO2 at Pt Temp ABG pO2 at Pt Temp ABG HCO3 ABG O2 Sat (Measured) ABG O2 Content ABG Base Excess George Test O2 Delivery Device Oxygen Flow Rate Vent Mode Vent Rate PEEP Pressure Support Vent Sodium Potassium Chloride Carbon Dioxide Anion Gap BUN Creatinine POC Glucometer > [phone] Random Glucose Calcium Phosphorus Magnesium 08/03/16 08/03/16 08/03/16 05:00 07:10 09:20 WBC RBC Hgb Hct MCV MCHC RDW Plt Count MPV Neutrophils % Lymphocytes % Monocytes % Band Neutrophils Puncture Site Right radial ABG pH 7.37 ABG pCO2 at Pt Temp 50.3 H ABG pO2 at Pt Temp 102.0 H D ABG HCO3 28.6 H ABG O2 Sat (Measured) 97.6 ABG O2 Content 15.8 ABG Base Excess 3.1 H George Test Positive O2 Delivery Device Mec.vent Oxygen Flow Rate 35% Vent Mode A/c Vent Rate 22 PEEP 5.0 Pressure Support Vent 375 Sodium 142 Potassium 5.3 H Chloride 106 Carbon Dioxide 29 Anion Gap 7 L BUN 58 H Creatinine 1.7 H POC Glucometer Random Glucose 598 H* 572 H* Calcium 8.0 L Phosphorus 3.1 Magnesium 2.8 H Active Medications Generic Name Dose Route Start Last Admin Trade Name Freq PRN Reason Stop Dose Admin Acetaminophen 650 mg 07/31/16 14:59 08/02/16 21:04 Tylenol Oral Solution - PO 650 mg Q6H PRN Administration FEVER OR PAIN Albuterol Sulfate 1 amp 07/28/16 01:24 Ventolin 0.083% Nebulizer Soln - NEB Q4H PRN SHORT OF BREATH/WHEEZING Albuterol/Ipratropium 1 amp 07/28/16 06:00 08/03/16 06:09 Duoneb - NEB 1 amp TIDR VANESSA Administration Aspirin 81 mg 08/02/16 10:00 08/02/16 11:04 Asa - NGT 81 mg DAILY VANESSA Administration Atorvastatin Calcium 80 mg 07/28/16 22:00 08/02/16 21:02 Lipitor - PO 80 mg HS VANESSA Administration Chlorhexidine Gluconate 15 ml 08/02/16 22:00 08/02/16 21:42 Peridex - MM 15 ml BID VANESSA Administration Propofol 100 mls @ 2.79 mls/hr 07/27/16 22:15 08/02/16 23:48 Diprivan - IVPB Not Given TITR VANESSA Protocol 5 MCG/KG/MIN Midazolam HCl 100 mg/ Sodium 100 mls @ 2 mls/hr 07/28/16 00:30 08/03/16 00:00 Chloride IVPB 4 mls/hr TITR VANESSA Administration Protocol 2 MG/HR Pantoprazole Sodium 100 mls @ 200 mls/hr 07/28/16 10:00 08/02/16 10:57 Protonix 40mg Ivpb (Pre-Docked) IVPB 200 mls/hr DAILY VANESSA Administration Insulin Aspart 1 vial 07/28/16 07:00 08/02/16 18:10 Novolog Vial Sliding Scale - SQ 6 units TIDAC VANESSA Administration Protocol Insulin Detemir 10 units 08/03/16 05:53 08/03/16 06:00 Levemir Vial SQ 10 units BIDI VANESSA Administration Levetiracetam 500 mg 08/02/16 10:00 08/02/16 21:02 Keppra Injection - IVPB 500 mg BID VANESSA Administration Metoprolol Tartrate 25 mg 08/02/16 10:00 08/02/16 21:02 Lopressor - NGT 25 mg BID VANESSA Administration Midazolam HCl 2 mg 07/29/16 13:42 07/29/16 13:45 Versed - IVPUSH 2 mg Q2H PRN Administration AGITATION ASSESSMENT/PLAN: 66 year old male with significant PMH of CKD III, HTN, DM, CAD s/p MO presented to ICU after being found unresponsive by . S/P Epi x6 before ROSC. #Acute Cardiac arrest, unknown etiology (ACS vs Aspiration PNA?); 35 minutes until ROSC -stable BP off pressors thus far -intubated & sedated, tolerated 1 hour sedation vacation this morning -troponins lucia -goals of care need to be discussed further today; palliative care on board -Neurology following -cardiology following #Possible Pneumonia, aspiration? -on Ceftriaxone, last day today -solumedrol discontinued -Duonebs QIDR, Albuterol PRN -ID consult appreciated #Acute on Chronic Renal Failure -continue to monitor electrolytes -avoid nephrotoxic meds #Hyperlipidemia/Hypertension -continue Lipitor, ASA, lopressor as per cardiology #DM -ISS w/ BGM -Levemir started last night Prophylaxis/FEN -SCD, PPI -Nepro tube feed Visit type - Emergency Visit Emergency Visit: Yes ED Registration Date: 07/27/16 Care time: The patient presented to the Emergency Department on the above date and was hospitalized for further evaluation of their emergent condition. - New Patient This patient is new to me today: No - Critical Care Critical Care patient: Yes Total Critical Care Time (in minutes): 40 Critical Care Statement: The care of this patient involved high complexity decision making to prevent further life threatening deterioration of the patient 's condition and/or to evalute & treat vital organ system(s) failure or risk of failure.
[2016-08-03] MEDS: levETIRAcetam 500 MG/5 ML INJECTION VIAL IVPB SCH ×2 (11:23→21:42)
[2016-08-03] MEDS: CHLORHEXIDINE GLUCONATE 0.12% 15ML CUP MM SCH ×2 (11:23→21:41)
[2016-08-03] MEDS: ASPIRIN 81 MG CHEWABLE TABLETS NGT SCH (11:23)
[2016-08-03] MEDS: PANTOPRAZOLE SODIUM 100 ML IVPB SCH (11:23)
[2016-08-03] MEDS: METOPROLOL TARTRATE 25 MG TABLET (FP) NGT SCH ×2 (11:26→21:42)
--- NOTE | 2016-08-03 13:55 | PN ---
Teaching Attending Note Name of Resident: Inderjit Araiza ATTENDING PHYSICIAN STATEMENT I saw and evaluated the patient. I reviewed the resident's note and discussed the case with the resident. I agree with the resident's findings and plan as documented. SUBJECTIVE: Patient seen and examined in the ICU. Intubated. Currently off sedation. Minimal response to noxious stimuli. Decorticate / Decerebrate posturing noted while off sedation. No pressors. Intake & Output 07/31/16 08/01/16 08/02/16 08/03/16 23:59 23:59 23:59 23:59 Intake Total 314 081 2464 128 Output Total 5286 287 6497 1000 Balance -513 23 -471 -872 Weight 149 lb 14.4 oz 150 lb 3.2 oz 147 lb 1 oz 145 lb 4 oz Last Vital Signs Temp Pulse Resp BP Pulse Ox 97.6 F 92 H 22 127/58 98 08/03/16 10:00 08/03/16 13:22 08/03/16 13:45 08/03/16 13:22 08/03/16 09:50 Active Medications Acetaminophen (Tylenol Oral Solution -) 650 mg PO Q6H PRN PRN Reason: FEVER OR PAIN Last Admin: 08/02/16 21:04 Dose: 650 mg Albuterol Sulfate (Ventolin 0.083% Nebulizer Soln -) 1 amp NEB Q4H PRN PRN Reason: SHORT OF BREATH/WHEEZING Albuterol/Ipratropium (Duoneb -) 1 amp NEB TIDR VANESSA Last Admin: 08/03/16 06:09 Dose: 1 amp Aspirin (Asa -) 81 mg NGT DAILY [facility] Last Admin: 08/03/16 11:23 Dose: 81 mg Atorvastatin Calcium (Lipitor -) 80 mg PO HS [facility] Last Admin: 08/02/16 21:02 Dose: 80 mg Chlorhexidine Gluconate (Peridex -) 15 ml MM BID VANESSA Last Admin: 08/03/16 11:23 Dose: 15 ml Propofol (Diprivan -) 100 mls @ 2.79 mls/hr IVPB TITR VANESSA; 5 MCG/KG/MIN PRN Reason: Protocol Last Admin: 08/02/16 23:48 Dose: Not Given Midazolam HCl 100 mg/ Sodium (Chloride) 100 mls @ 2 mls/hr IVPB TITR VANESSA; 2 MG/ HR PRN Reason: Protocol Last Admin: 08/03/16 00:00 Dose: 4 mls/hr Pantoprazole Sodium (Protonix 40mg Ivpb (Pre-Docked)) 100 mls @ 200 mls/hr IVPB DAILY [facility] Last Admin: 08/03/16 11:23 Dose: 200 mls/hr Insulin Aspart (Novolog Vial Sliding Scale -) 1 vial SQ TIDAC VANESSA PRN Reason: Protocol Last Admin: 08/02/16 18:10 Dose: 6 units Insulin Detemir (Levemir Vial) 10 units SQ BIDI [facility] Last Admin: 08/03/16 06:00 Dose: 10 units Levetiracetam (Keppra Injection -) 500 mg IVPB BID [facility] Last Admin: 08/03/16 11:23 Dose: 500 mg Metoprolol Tartrate (Lopressor -) 25 mg NGT BID [facility] Last Admin: 08/03/16 11:26 Dose: 25 mg Midazolam HCl (Versed -) 2 mg IVPUSH Q2H PRN PRN Reason: AGITATION Last Admin: 07/29/16 13:45 Dose: 2 mg Constitutional: Yes: Intubated / minimally responsive Eyes: Yes: Other (pupils sluggish) HENT: Yes: Other (NGT with dark residual) Neck: Yes: WNL Cardiovascular: Yes: S1, S2, Other (sinus on tele) Respiratory: Yes: Diminished at the bases, bilateral rhonchi, Intubated / Ventilated Gastrointestinal: Yes: Normal Bowel Sounds, Soft, Abdomen, Obese, Distention ...Rectal Exam: Yes: Deferred Renal/: Yes: [place] Present Musculoskeletal: Yes: WNL Extremities: Yes: WNL Edema: No Peripheral Pulses WNL: Yes (+1 bilateral pedal pulses) Integumentary: Yes: Other (change in color lower sternal region) Neurological: Yes: Unresponsive Labs: Laboratory Results - last 24 hr 08/01/16 08/01/16 08/02/16 12:50 16:54 06:25 WBC RBC Hgb Hct MCV MCHC RDW Plt Count MPV Neutrophils % Lymphocytes % Monocytes % Band Neutrophils Puncture Site ABG pH ABG pCO2 at Pt Temp ABG pO2 at Pt Temp ABG HCO3 ABG O2 Sat (Measured) ABG O2 Content ABG Base Excess George Test O2 Delivery Device Oxygen Flow Rate Vent Mode Vent Rate PEEP Pressure Support Vent Sodium Potassium Chloride Carbon Dioxide Anion Gap BUN Creatinine POC Glucometer > [phone] > 400 Random Glucose Calcium Phosphorus Magnesium 08/02/16 08/02/16 08/03/16 12:39 17:21 05:00 WBC 9.4 D RBC 3.78 L Hgb 11.5 L Hct 34.3 L MCV 90.8 MCHC 33.4 RDW 13.7 Plt Count 264 MPV 8.2 Neutrophils % 81.0 Lymphocytes % 12.0 Monocytes % 6.0 Band Neutrophils 1.0 D Puncture Site ABG pH ABG pCO2 at Pt Temp ABG pO2 at Pt Temp ABG HCO3 ABG O2 Sat (Measured) ABG O2 Content ABG Base Excess George Test O2 Delivery Device Oxygen Flow Rate Vent Mode Vent Rate PEEP Pressure Support Vent Sodium Potassium Chloride Carbon Dioxide Anion Gap BUN Creatinine POC Glucometer > 400 > 400 Random Glucose Calcium Phosphorus Magnesium 08/03/16 08/03/16 08/03/16 05:00 07:10 09:07 WBC RBC Hgb Hct MCV MCHC RDW Plt Count MPV Neutrophils % Lymphocytes % Monocytes % Band Neutrophils Puncture Site Right radial ABG pH 7.37 ABG pCO2 at Pt Temp 50.3 H ABG pO2 at Pt Temp 102.0 H D ABG HCO3 28.6 H ABG O2 Sat (Measured) 97.6 ABG O2 Content 15.8 ABG Base Excess 3.1 H George Test Positive O2 Delivery Device Mec.vent Oxygen Flow Rate 35% Vent Mode A/c Vent Rate 22 PEEP 5.0 Pressure Support Vent 375 Sodium 142 Potassium 5.3 H Chloride 106 Carbon Dioxide 29 Anion Gap 7 L BUN 58 H Creatinine 1.7 H POC Glucometer > 400 Random Glucose 598 H* Calcium 8.0 L Phosphorus 3.1 Magnesium 2.8 H 08/03/16 08/03/16 09:08 09:20 WBC RBC Hgb Hct MCV MCHC RDW Plt Count MPV Neutrophils % Lymphocytes % Monocytes % Band Neutrophils Puncture Site ABG pH ABG pCO2 at Pt Temp ABG pO2 at Pt Temp ABG HCO3 ABG O2 Sat (Measured) ABG O2 Content ABG Base Excess George Test O2 Delivery Device Oxygen Flow Rate Vent Mode Vent Rate PEEP Pressure Support Vent Sodium Potassium Chloride Carbon Dioxide Anion Gap BUN Creatinine POC Glucometer > 400 Random Glucose 572 H* Calcium Phosphorus Magnesium Assessment/Plan S/P Cardiac Arrest with prolonged ROSC Suspected SUNDAR Shock -> Cardiogenic +/- Septic COPD HTN DM (?) PNA CHF CAD Demand ischemia Acute on CKD PLAN: AC mode of vent ABX per ID Sedation vacations ASA VTE prophylaxis Long discussion with the patient's , daughter, and son yesterday. Clarified that the had conversations with her about serious illness and the need for prolonged life support. She is clear that he would not want to be kept alive by chronic life support in the event that he could not return to his quality of life. Family will decide on further GOC Dr Dolan CCTime 35"
[2016-08-03] MEDS: PROPOFOL 100 ML IVPB SCH (20:41)
[2016-08-03] MEDS: ATORVASTATIN CA 80 MG TABLET (FP) PO SCH (21:42)
[2016-08-04 05:34] LABS: BASOPHIL 0.2 % (0-2.0); EOSINOPHIL 0.4 % (0-4.5); MCH 30.5 pg (25.7-33.7); MCHC 33.6 g/dl (32.0-35.9); MEAN CELL VOLUME 90.8 fl (80-96); MEAN PLT VOLUME 7.8 fl (7.5-11.1); NEUTROPHILS 78.4 % (42.8-82.8); PLATELET COUNT 251 K/MM3 (134-434); RDW 13.5 % (11.9-15.9); WHITE BLOOD COUNT 10.6 K/mm3 (4.0-10.0)
[2016-08-04 06:23] LABS: CALCIUM 8.6 mg/dL (8.5-10.1); CREATININE 1.4 mg/dL (0.7-1.3)
[2016-08-04 06:25] LABS: BILIRUBIN,TOTAL 0.3 mg/dL (0.2-1.0); TOT PROT 5.9 g/dl (6.4-8.2)
[2016-08-04] MEDS: ALBUTEROL SO4 2.5/IPRATROPIUM 0.5 INH SOL 3 ML VIAL.NEB. NEB SCH (06:25)
[2016-08-04] MEDS: INSULIN SLIDING SCALE (NOVOLOG) 1 VIAL SQ SCH ×2 (06:42→14:49)
[2016-08-04] MEDS: INSULIN DETEMIR 100 UNITS/ML MDV SQ SCH (06:42)
--- NOTE | 2016-08-04 07:30 | PN ---
Progress Note, Physician Chief Complaint: ID Competing course of antibiotic Ceftriaxone today after 7 days No change in clinical condition Remains intubated - Current Medication List Current Medications: Active Medications Acetaminophen (Tylenol Oral Solution -) 650 mg PO Q6H PRN PRN Reason: FEVER OR PAIN Last Admin: 08/02/16 21:04 Dose: 650 mg Albuterol Sulfate (Ventolin 0.083% Nebulizer Soln -) 1 amp NEB Q4H PRN PRN Reason: SHORT OF BREATH/WHEEZING Albuterol/Ipratropium (Duoneb -) 1 amp NEB TIDR [facility] Last Admin: 08/04/16 06:25 Dose: 1 amp Aspirin (Asa -) 81 mg NGT DAILY [facility] Last Admin: 08/03/16 11:23 Dose: 81 mg Atorvastatin Calcium (Lipitor -) 80 mg PO HS [facility] Last Admin: 08/03/16 21:42 Dose: 80 mg Chlorhexidine Gluconate (Peridex -) 15 ml MM BID [facility] Last Admin: 08/03/16 21:41 Dose: 15 ml Propofol (Diprivan -) 100 mls @ 2.79 mls/hr IVPB TITR VANESSA; 5 MCG/KG/MIN PRN Reason: Protocol Last Admin: 08/03/16 20:41 Dose: 12 mls/hr Midazolam HCl 100 mg/ Sodium (Chloride) 100 mls @ 2 mls/hr IVPB TITR VANESSA; 2 MG/ HR PRN Reason: Protocol Last Admin: 08/03/16 00:00 Dose: 4 mls/hr Pantoprazole Sodium (Protonix 40mg Ivpb (Pre-Docked)) 100 mls @ 200 mls/hr IVPB DAILY [facility] Last Admin: 08/03/16 11:23 Dose: 200 mls/hr Insulin Aspart (Novolog Vial Sliding Scale -) 1 vial SQ TIDAC [facility] PRN Reason: Protocol Last Admin: 08/04/16 06:42 Dose: 6 units Insulin Detemir (Levemir Vial) 10 units SQ BIDI [facility] Last Admin: 08/04/16 06:42 Dose: 10 units Levetiracetam (Keppra Injection -) 500 mg IVPB BID [facility] Last Admin: 08/03/16 21:42 Dose: 500 mg Metoprolol Tartrate (Lopressor -) 25 mg NGT BID [facility] Last Admin: 08/03/16 21:42 Dose: 25 mg Midazolam HCl (Versed -) 2 mg IVPUSH Q2H PRN PRN Reason: AGITATION Last Admin: 07/29/16 13:45 Dose: 2 mg - Objective Vital Signs: Vital Signs Temperature 96.8 F L 08/04/16 06:00 Pulse Rate 73 08/04/16 06:00 Respiratory Rate 22 08/04/16 07:25 Blood Pressure 147/60 08/04/16 06:00 O2 Sat by Pulse Oximetry (%) 100 08/03/16 22:00 Constitutional: Yes: Well Nourished HENT: Yes: Other (INtubated) Cardiovascular: Yes: Regular Rate and Rhythm, S1, S2. No: Murmur Respiratory: Yes: WNL, Regular, CTA Bilaterally Gastrointestinal: Yes: WNL, Normal Bowel Sounds, Soft. No: Tenderness, Tenderness, Epigastrium, Tenderness, Rebound Extremities: No: Cold, Cool, Cyanosis Edema: No Labs: CBC, BMP 08/04/16 05:00 08/04/16 05:00 INR, PTT INR 1.57 (0.82-1.09) H 07/28/16 08:30 Assessment/Plan Laboratory Tests 08/03/16 08/04/16 08/04/16 07:10 05:00 05:00 WBC 10.6 H Hgb 11.3 L Hct 33.5 L Plt Count 251 ABG pH 7.37 ABG pCO2 at Pt Temp 50.3 H ABG pO2 at Pt Temp 102.0 H D Oxygen Flow Rate 35% BUN 58 H Creatinine 1.4 H Assessment Post cardiac arrest Respiratory failure COPD Anxoic encephalopathy Pneumococcal antigen Plan Competes antibiotic today Kindly recall if can if I can assist Levi LOPEZ
[2016-08-04 07:36] LABS: ARTERIAL BLD GAS O2 SATURATION 96.2 % (90-98.9); ARTERIAL BLOOD GAS BASE EXCESS 6.3 meq/l (-2-2); ARTERIAL BLOOD GAS HCO3 30.7 meq/L (22-26); ARTERIAL BLOOD GAS PO2 80.6 mmHg (80-100); ARTERIAL BLOOD GAS pH 7.45 (7.35-7.45)
[2016-08-04 07:38] LABS: ALLENS TEST POSITIVE; ART PUNCT SITE LEFT RADIAL; LPM/O2% 35%; MECH. VENT. Y; PT. ON O2? YES; TYPE OF O2 VENT; VENT RATE 22; VT/PRESS 375
[2016-08-04 08:43] VITALS: TEMP 97.1
[2016-08-04] MEDS: levETIRAcetam 500 MG/5 ML INJECTION VIAL IVPB SCH (09:04)
[2016-08-04] MEDS: METOPROLOL TARTRATE 25 MG TABLET (FP) NGT SCH (09:05)
[2016-08-04] MEDS: ASPIRIN 81 MG CHEWABLE TABLETS NGT SCH (09:05)
[2016-08-04] MEDS: CHLORHEXIDINE GLUCONATE 0.12% 15ML CUP MM SCH (09:05)
--- NOTE | 2016-08-04 09:35 | PN ---
Physical Exam: SUBJECTIVE: Patient seen and examined at bedside in ICU. Intubated & on sedative vacation. No change in mental status or physical exam. GOC to be further discussed with family today. OBJECTIVE: Vital Signs Period Temp Pulse Resp BP Sys/Mercer Pulse Ox Last 24 Hr 96.8 F-98.8 F 71-96 22-30 113-147/47-69 98-100 GENERAL: Intubated & sedated, in no acute distress HEENT: Atraumatic, Minimally responsive pupils, No lymphadenopathy noted, moist membranes LUNGS: diminished breath sounds bilaterally (R>L) HEART: Regular rate and rhythm, S1, S2 without murmur, rub or gallop. ABDOMEN: Soft, nontender, nondistended, normoactive EXTREMITIES: 2+ pulses, warm, well-perfused, trace peripheral edema SKIN: Warm, dry, normal turgor, no rashes or lesions noted Laboratory Results - last 24 hr 08/02/16 08/02/16 08/02/16 06:25 12:39 17:21 WBC RBC Hgb Hct MCV MCHC RDW Plt Count MPV Neutrophils % Lymphocytes % Monocytes % Eosinophils % Basophils % Puncture Site ABG pH ABG pCO2 at Pt Temp ABG pO2 at Pt Temp ABG HCO3 ABG O2 Sat (Measured) ABG O2 Content ABG Base Excess George Test O2 Delivery Device Oxygen Flow Rate Vent Mode Vent Rate Mechanical Rate PEEP Pressure Support Vent Sodium Potassium Chloride Carbon Dioxide Anion Gap BUN Creatinine Creat Clearance w eGFR POC Glucometer > 400 > 400 > 400 Random Glucose Calcium Total Bilirubin AST ALT Alkaline Phosphatase Total Protein Albumin 08/03/16 08/03/16 08/03/16 09:07 09:08 09:20 WBC RBC Hgb Hct MCV MCHC RDW Plt Count MPV Neutrophils % Lymphocytes % Monocytes % Eosinophils % Basophils % Puncture Site ABG pH ABG pCO2 at Pt Temp ABG pO2 at Pt Temp ABG HCO3 ABG O2 Sat (Measured) ABG O2 Content ABG Base Excess George Test O2 Delivery Device Oxygen Flow Rate Vent Mode Vent Rate Mechanical Rate PEEP Pressure Support Vent Sodium Potassium Chloride Carbon Dioxide Anion Gap BUN Creatinine Creat Clearance w eGFR POC Glucometer > 400 > 400 Random Glucose 572 H* Calcium Total Bilirubin AST ALT Alkaline Phosphatase Total Protein Albumin 08/03/16 08/04/16 08/04/16 12:55 05:00 05:00 WBC 10.6 H RBC 3.69 L Hgb 11.3 L Hct 33.5 L MCV 90.8 MCHC 33.6 RDW 13.5 Plt Count 251 MPV 7.8 Neutrophils % 78.4 Lymphocytes % 14.6 D Monocytes % 6.4 Eosinophils % 0.4 Basophils % 0.2 Puncture Site ABG pH ABG pCO2 at Pt Temp ABG pO2 at Pt Temp ABG HCO3 ABG O2 Sat (Measured) ABG O2 Content ABG Base Excess George Test O2 Delivery Device Oxygen Flow Rate Vent Mode Vent Rate Mechanical Rate PEEP Pressure Support Vent Sodium 151 H Potassium 4.1 D Chloride 112 H Carbon Dioxide 30 Anion Gap 9 BUN 58 H Creatinine 1.4 H Creat Clearance w eGFR 50.70 POC Glucometer Random Glucose 544 H* 402 H* D Calcium 8.6 Total Bilirubin 0.3 D AST 51 H ALT 70 D Alkaline Phosphatase 103 Total Protein 5.9 L Albumin 2.0 L 08/04/16 07:25 WBC RBC Hgb Hct MCV MCHC RDW Plt Count MPV Neutrophils % Lymphocytes % Monocytes % Eosinophils % Basophils % Puncture Site Left radial ABG pH 7.45 ABG pCO2 at Pt Temp 44.9 ABG pO2 at Pt Temp 80.6 D ABG HCO3 30.7 H ABG O2 Sat (Measured) 96.2 ABG O2 Content 14.7 L ABG Base Excess 6.3 H George Test Positive O2 Delivery Device Vent Oxygen Flow Rate 35% Vent Mode A/c Vent Rate 22 Mechanical Rate Y PEEP 5.0 Pressure Support Vent 375 Sodium Potassium Chloride Carbon Dioxide Anion Gap BUN Creatinine Creat Clearance w eGFR POC Glucometer Random Glucose Calcium Total Bilirubin AST ALT Alkaline Phosphatase Total Protein Albumin Active Medications Generic Name Dose Route Start Last Admin Trade Name Freq PRN Reason Stop Dose Admin Acetaminophen 650 mg 07/31/16 14:59 08/02/16 21:04 Tylenol Oral Solution - PO 650 mg Q6H PRN Administration FEVER OR PAIN Albuterol Sulfate 1 amp 07/28/16 01:24 Ventolin 0.083% Nebulizer Soln - NEB Q4H PRN SHORT OF BREATH/WHEEZING Albuterol/Ipratropium 1 amp 07/28/16 06:00 08/04/16 06:25 Duoneb - NEB 1 amp TIDR VANESSA Administration Aspirin 81 mg 08/02/16 10:00 08/04/16 09:05 Asa - NGT 81 mg DAILY VANESSA Administration Atorvastatin Calcium 80 mg 07/28/16 22:00 08/03/16 21:42 Lipitor - PO 80 mg HS VANESSA Administration Chlorhexidine Gluconate 15 ml 08/02/16 22:00 08/04/16 09:05 Peridex - MM 15 ml BID VANESSA Administration Propofol 100 mls @ 2.79 mls/hr 07/27/16 22:15 08/03/16 20:41 Diprivan - IVPB 12 mls/hr TITR VANESSA Administration Protocol 5 MCG/KG/MIN Midazolam HCl 100 mg/ Sodium 100 mls @ 2 mls/hr 07/28/16 00:30 08/03/16 00:00 Chloride IVPB 4 mls/hr TITR VANESSA Administration Protocol 2 MG/HR Pantoprazole Sodium 100 mls @ 200 mls/hr 07/28/16 10:00 08/03/16 11:23 Protonix 40mg Ivpb (Pre-Docked) IVPB 200 mls/hr DAILY VANESSA Administration Insulin Aspart 1 vial 07/28/16 07:00 08/04/16 06:42 Novolog Vial Sliding Scale - SQ 6 units TIDAC VANESSA Administration Protocol Insulin Detemir 10 units 08/03/16 05:53 08/04/16 06:42 Levemir Vial SQ 10 units BIDI VANESSA Administration Levetiracetam 500 mg 08/02/16 10:00 08/04/16 09:04 Keppra Injection - IVPB 500 mg BID VANESSA Administration Metoprolol Tartrate 25 mg 08/02/16 10:00 08/04/16 09:05 Lopressor - NGT 25 mg BID VANESSA Administration Midazolam HCl 2 mg 07/29/16 13:42 07/29/16 13:45 Versed - IVPUSH 2 mg Q2H PRN Administration AGITATION ASSESSMENT/PLAN: 66 year old male with significant PMH of CKD III, HTN, DM, CAD s/p MO presented to ICU after being found unresponsive by . S/P Epi x6 before ROSC. #Acute Cardiac arrest, unknown etiology (ACS vs Aspiration PNA?); 35 minutes until ROSC -stable BP off pressors thus far -intubated & sedated -troponins peaked -on Keppra -goals of care addressed yesterday, family would like more time to make decision regarding tracheotomy vs compassionate extubation; palliative care on board -Neurology following -cardiology following #Possible Aspiration Pneumonia -finished AB course yesterday -Duonebs QIDR, Albuterol PRN -ID consult appreciated #Acute on Chronic Renal Failure -continue to monitor electrolytes -avoid nephrotoxic meds #Hyperlipidemia/Hypertension -continue Lipitor, ASA, lopressor as per cardiology #DM -ISS w/ BGM -Levemir ongoing as well Prophylaxis/FEN -SCD, PPI -Nepro tube feed Visit type - Emergency Visit Emergency Visit: Yes ED Registration Date: 07/27/16 Care time: The patient presented to the Emergency Department on the above date and was hospitalized for further evaluation of their emergent condition. - New Patient This patient is new to me today: No - Critical Care Critical Care patient: Yes Total Critical Care Time (in minutes): 38 Critical Care Statement: The care of this patient involved high complexity decision making to prevent further life threatening deterioration of the patient 's condition and/or to evalute & treat vital organ system(s) failure or risk of failure.
--- NOTE | 2016-08-04 09:37 | PN ---
Progress Note, Physician History of Present Illness: Unresponsive on vent back on sedation. - Current Medication List Current Medications: Active Medications Acetaminophen (Tylenol Oral Solution -) 650 mg PO Q6H PRN PRN Reason: FEVER OR PAIN Last Admin: 08/02/16 21:04 Dose: 650 mg Albuterol Sulfate (Ventolin 0.083% Nebulizer Soln -) 1 amp NEB Q4H PRN PRN Reason: SHORT OF BREATH/WHEEZING Albuterol/Ipratropium (Duoneb -) 1 amp NEB TIDR [facility] Last Admin: 08/04/16 06:25 Dose: 1 amp Aspirin (Asa -) 81 mg NGT DAILY [facility] Last Admin: 08/04/16 09:05 Dose: 81 mg Atorvastatin Calcium (Lipitor -) 80 mg PO HS [facility] Last Admin: 08/03/16 21:42 Dose: 80 mg Chlorhexidine Gluconate (Peridex -) 15 ml MM BID [facility] Last Admin: 08/04/16 09:05 Dose: 15 ml Propofol (Diprivan -) 100 mls @ 2.79 mls/hr IVPB TITR [facility]; 5 MCG/KG/MIN PRN Reason: Protocol Last Admin: 08/03/16 20:41 Dose: 12 mls/hr Midazolam HCl 100 mg/ Sodium (Chloride) 100 mls @ 2 mls/hr IVPB TITR [facility]ES[facility]; 2 MG/ HR PRN Reason: Protocol Last Admin: 08/03/16 00:00 Dose: 4 mls/hr Pantoprazole Sodium (Protonix 40mg Ivpb (Pre-Docked)) 100 mls @ 200 mls/hr IVPB DAILY [facility] Last Admin: 08/03/16 11:23 Dose: 200 mls/hr Insulin Aspart (Novolog Vial Sliding Scale -) 1 vial SQ TIDAC [facility] PRN Reason: Protocol Last Admin: 08/04/16 06:42 Dose: 6 units Insulin Detemir (Levemir Vial) 10 units SQ BIDI [facility] Last Admin: 08/04/16 06:42 Dose: 10 units Levetiracetam (Keppra Injection -) 500 mg IVPB BID [facility] Last Admin: 08/04/16 09:04 Dose: 500 mg Metoprolol Tartrate (Lopressor -) 25 mg NGT BID [facility] Last Admin: 08/04/16 09:05 Dose: 25 mg Midazolam HCl (Versed -) 2 mg IVPUSH Q2H PRN PRN Reason: AGITATION Last Admin: 07/29/16 13:45 Dose: 2 mg - Objective Vital Signs: Vital Signs Temperature 97.1 F L 08/04/16 08:42 Pulse Rate 74 08/04/16 08:00 Respiratory Rate 22 08/04/16 08:00 Blood Pressure 130/56 08/04/16 08:00 O2 Sat by Pulse Oximetry (%) 100 08/04/16 07:44 Constitutional: Yes: No Distress, Calm Neck: Yes: Supple Cardiovascular: Yes: Regular Rate and Rhythm Respiratory: Yes: Intubated, Mechanically Ventilated, Rhonchi Gastrointestinal: Yes: Normal Bowel Sounds, Soft Edema: No Labs: CBC, BMP 08/04/16 05:00 08/04/16 05:00 INR, PTT INR 1.57 (0.82-1.09) H 07/28/16 08:30 Assessment/Plan 01/01/2015 Preserved LV fxn, mild MR, TR 12/29/2014 Nuc stress: Mod size inferior moderate ischemia, small zone of infarction, LVEF 41%, 07/28/3016 Mild decreased LV fxn, mild TR 1. Respiratory faillure s/p cardiopulmonary arrest with prolonged ROSC 2. Acute systolic failure with pulm edema resolved 3. CAD h/o OH, demand ischemia 4. Acute on CKD improving 5. Anoxic brain injury 6. COPD, PNA: s. pneumo 7. Anemia P:1. SBT as tolerated, BD,completed empiric abx for aspiration PNA and steroids , neuro f/u appreciated, EEG c/w anoxic brain injury 2. Troponins have peaked 3. Resume Altace 5 qd once renal fxn stable, continue Lopressor 25 bid, Lipitor 80 qhs, ASA 81 qd 4. Enteral feeds with free water repletion, DVT and GI prophylaxis, diuresis as needed, addressing GOC
[2016-08-04] MEDS: PANTOPRAZOLE SODIUM 100 ML IVPB SCH (09:54)
[2016-08-04] MEDS ORDERED: morphine CARPU-JECT 4 MG/1 ML DISP.SYRIN ONE (10:54)
[2016-08-04] MEDS ORDERED: LORAZEPAM CARPU-JECT 2 MG/ML DISP.SYRIN ONE (10:54)
--- NOTE | 2016-08-04 10:56 | PN ---
Progress Note (short form) - Note Progress Note: family have bedside Family have decided to compression extubate patient Vital Signs - 24 hr 08/03/16 08/03/16 08/03/16 16:00 16:05 18:00 Temperature 98.8 F Pulse Rate 93 H 77 Respiratory 22 22 22 Rate Blood Pressure 134/69 113/49 O2 Sat by Pulse Oximetry (%) 08/03/16 08/03/16 08/03/16 18:01 20:00 20:15 Temperature Pulse Rate 80 Respiratory 22 22 22 Rate Blood Pressure 116/47 O2 Sat by Pulse Oximetry (%) 08/03/16 08/03/16 08/03/16 21:00 22:00 22:33 Temperature 98.8 F Pulse Rate 76 Respiratory 22 22 22 Rate Blood Pressure 130/59 O2 Sat by Pulse 100 100 Oximetry (%) 08/04/16 08/04/16 08/04/16 00:00 00:22 02:00 Temperature 97.3 F L Pulse Rate 71 74 Respiratory 22 22 22 Rate Blood Pressure 135/56 126/60 O2 Sat by Pulse Oximetry (%) 08/04/16 08/04/16 08/04/16 02:29 04:00 05:05 Temperature Pulse Rate 72 Respiratory 22 22 22 Rate Blood Pressure 138/54 O2 Sat by Pulse Oximetry (%) 08/04/16 08/04/16 08/04/16 06:00 07:00 07:25 Temperature 96.8 F L Pulse Rate 73 74 Respiratory 22 22 22 Rate Blood Pressure 147/60 134/60 O2 Sat by Pulse Oximetry (%) 08/04/16 08/04/16 08/04/16 07:40 07:44 08:00 Temperature Pulse Rate 74 Respiratory 22 22 22 Rate Blood Pressure 130/56 O2 Sat by Pulse 100 100 Oximetry (%) 08/04/16 08/04/16 08/04/16 08:42 09:56 10:00 Temperature 97.1 F L Pulse Rate 81 77 76 Respiratory 22 22 22 Rate Blood Pressure 160/67 129/63 O2 Sat by Pulse 99 Oximetry (%) 08/04/16 12:00 Temperature Pulse Rate 96 H Respiratory 22 Rate Blood Pressure 166/73 O2 Sat by Pulse Oximetry (%) Current Medications Generic Name Dose Route Start Last Admin Trade Name Freq PRN Reason Stop Dose Admin Acetaminophen 650 mg 07/31/16 14:59 08/02/16 21:04 Tylenol Oral Solution - PO 650 mg Q6H PRN Administration FEVER OR PAIN Lorazepam 40 mg/ Dextrose 120 mls @ 6 mls/hr 08/04/16 11:45 08/04/16 12:36 IVPB 3 mg/hr TITR [facility] Titration Protocol 2 MG/HR Morphine Sulfate 100 mg/ 100 mls @ 4 mls/hr 08/04/16 11:45 08/04/16 12:36 Sodium Chloride IVPB 6 mg/hr TITR [facility]ES[facility] Titration Protocol 4 MG/HR Levetiracetam 500 mg 08/02/16 10:00 08/04/16 09:04 Keppra Injection - IVPB 500 mg BID [facility] Administration Lorazepam 2 mg 08/04/16 11:34 08/04/16 11:25 Ativan Injection - IVPUSH 2 mg Q2H PRN Administration ANXIETY Laboratory Results - last 24 hr 08/03/16 08/03/16 08/04/16 12:24 18:13 05:00 WBC 10.6 H RBC 3.69 L Hgb 11.3 L Hct 33.5 L MCV 90.8 MCHC 33.6 RDW 13.5 Plt Count 251 MPV 7.8 Neutrophils % 78.4 Lymphocytes % 14.6 D Monocytes % 6.4 Eosinophils % 0.4 Basophils % 0.2 Puncture Site ABG pH ABG pCO2 at Pt Temp ABG pO2 at Pt Temp ABG HCO3 ABG O2 Sat (Measured) ABG O2 Content ABG Base Excess George Test O2 Delivery Device Oxygen Flow Rate Vent Mode Vent Rate Mechanical Rate PEEP Pressure Support Vent Sodium Potassium Chloride Carbon Dioxide Anion Gap BUN Creatinine Creat Clearance w eGFR POC Glucometer > 400 > 400 Random Glucose Calcium Total Bilirubin AST ALT Alkaline Phosphatase Total Protein Albumin 08/04/16 08/04/16 08/04/16 05:00 07:25 10:37 WBC RBC Hgb Hct MCV MCHC RDW Plt Count MPV Neutrophils % Lymphocytes % Monocytes % Eosinophils % Basophils % Puncture Site Left radial ABG pH 7.45 ABG pCO2 at Pt Temp 44.9 ABG pO2 at Pt Temp 80.6 D ABG HCO3 30.7 H ABG O2 Sat (Measured) 96.2 ABG O2 Content 14.7 L ABG Base Excess 6.3 H George Test Positive O2 Delivery Device Vent Oxygen Flow Rate 35% Vent Mode A/c Vent Rate 22 Mechanical Rate Y PEEP 5.0 Pressure Support Vent 375 Sodium 151 H Potassium 4.1 D Chloride 112 H Carbon Dioxide 30 Anion Gap 9 BUN 58 H Creatinine 1.4 H Creat Clearance w eGFR 50.70 POC Glucometer > 400 Random Glucose 402 H* D Calcium 8.6 Total Bilirubin 0.3 D AST 51 H ALT 70 D Alkaline Phosphatase 103 Total Protein 5.9 L Albumin 2.0 L [id number] Lungs decreased Abdomen, soft, bowel sounds present, nondistended No edema Plan Compassionate extubation today Spoke with ICU attending Comfort Care and morphine drip -- organ donation called
--- NOTE | 2016-08-04 11:11 | PN ---
Progress Note, Physician Chief Complaint: Patient in ICU. Remains intubated. Terminal weaning planned for today. Maintains copious amounts of urine. Family by his bed. - Current Medication List Current Medications: Active Medications Acetaminophen (Tylenol Oral Solution -) 650 mg PO Q6H PRN PRN Reason: FEVER OR PAIN Last Admin: 08/02/16 21:04 Dose: 650 mg Albuterol Sulfate (Ventolin 0.083% Nebulizer Soln -) 1 amp NEB Q4H PRN PRN Reason: SHORT OF BREATH/WHEEZING Albuterol/Ipratropium (Duoneb -) 1 amp NEB TIDR [facility] Last Admin: 08/04/16 06:25 Dose: 1 amp Aspirin (Asa -) 81 mg NGT DAILY [facility] Last Admin: 08/04/16 09:05 Dose: 81 mg Atorvastatin Calcium (Lipitor -) 80 mg PO HS [facility] Last Admin: 08/03/16 21:42 Dose: 80 mg Chlorhexidine Gluconate (Peridex -) 15 ml MM BID [facility] Last Admin: 08/04/16 09:05 Dose: 15 ml Propofol (Diprivan -) 100 mls @ 2.79 mls/hr IVPB TITR [facility]; 5 MCG/KG/MIN PRN Reason: Protocol Last Admin: 08/03/16 20:41 Dose: 12 mls/hr Midazolam HCl 100 mg/ Sodium (Chloride) 100 mls @ 2 mls/hr IVPB TITR [facility]; 2 MG/ HR PRN Reason: Protocol Last Admin: 08/03/16 00:00 Dose: 4 mls/hr Pantoprazole Sodium (Protonix 40mg Ivpb (Pre-Docked)) 100 mls @ 200 mls/hr IVPB DAILY [facility] Last Admin: 08/04/16 09:54 Dose: 200 mls/hr Insulin Aspart (Novolog Vial Sliding Scale -) 1 vial SQ TIDAC [facility] PRN Reason: Protocol Last Admin: 08/04/16 06:42 Dose: 6 units Insulin Detemir (Levemir Vial) 10 units SQ BIDI [facility] Last Admin: 08/04/16 06:42 Dose: 10 units Levetiracetam (Keppra Injection -) 500 mg IVPB BID [facility] Last Admin: 08/04/16 09:04 Dose: 500 mg Metoprolol Tartrate (Lopressor -) 25 mg NGT BID [facility] Last Admin: 08/04/16 09:05 Dose: 25 mg Midazolam HCl (Versed -) 2 mg IVPUSH Q2H PRN PRN Reason: AGITATION Last Admin: 07/29/16 13:45 Dose: 2 mg - Objective Vital Signs: Vital Signs Temperature 97.1 F L 08/04/16 08:42 Pulse Rate 76 08/04/16 10:00 Respiratory Rate 22 08/04/16 10:00 Blood Pressure 129/63 08/04/16 10:00 O2 Sat by Pulse Oximetry (%) 99 08/04/16 09:56 Constitutional: Yes: Calm Neck: Yes: Supple, Trachea Midline Cardiovascular: Yes: S1, S2 Respiratory: Yes: Regular, Rhonchi Gastrointestinal: Yes: Normal Bowel Sounds, Soft Edema: No Neurological: Yes: Unresponsive Labs: CBC, BMP 08/04/16 05:00 08/04/16 05:00 INR, PTT INR 1.57 (0.82-1.09) H 07/28/16 08:30 Assessment/Plan 66 y/o male, poorly responsive, s/p respiratory arrest, Vent dependent. Has underlying CKD. 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 Given his poor prognosis and the anticipated terminal weaning, will not attempt any changes in the course of the treatments. Discussed in detail with the family. Thanks again Alicja Hernadez MD
[2016-08-04] MEDS ORDERED: morphine CARPU-JECT 4 MG/1 ML DISP.SYRIN IVPUSH ONE (11:34)
[2016-08-04] MEDS ORDERED: LORAZEPAM CARPU-JECT 2 MG/ML DISP.SYRIN IVPUSH PRN (11:34)
[2016-08-04] MEDS ORDERED: LORAZEPAM 40 MG in DEXTROSE 5%-WATER - 100 ML IVPB SCH (11:45)
[2016-08-04] MEDS ORDERED: MORPHINE 100 MG in SODIUM CHLORIDE 98 ML IVPB SCH (11:45)
[2016-08-04] MEDS ORDERED: LORAZEPAM CARPU-JECT 2 MG/ML DISP.SYRIN IVPUSH ONE (11:48)
[2016-08-04] MEDS ORDERED: INSULIN (NOVOLOG) ASPART 100 UNITS/ML 10ML VIAL SQ ONE (12:00)
--- NOTE | 2016-08-04 12:30 | PN ---
Teaching Attending Note Name of Resident: Inderjit Araiza ATTENDING PHYSICIAN STATEMENT I saw and evaluated the patient. I reviewed the resident's note and discussed the case with the resident. I agree with the resident's findings and plan as documented. SUBJECTIVE: Patient seen and examined in the ICU. Intubated. Minimal response to noxious stimuli when off propofol. No pressors. Family at the bedside. Update given. They are in agreement for compassionate extubation. Intake & Output 08/01/16 08/02/16 08/03/16 08/04/16 23:59 23:59 23:59 23:59 Intake Total 773 2629 2968 904 Output Total 750 3100 2650 750 Balance 23 -471 318 154 Weight 150 lb 3.2 oz 147 lb 1 oz 145 lb 4 oz 143 lb 2 oz Last Vital Signs Temp Pulse Resp BP Pulse Ox 97.1 F L 96 H 22 166/73 99 08/04/16 08:42 08/04/16 12:00 08/04/16 12:00 08/04/16 12:00 08/04/16 09:56 Active Medications Acetaminophen (Tylenol Oral Solution -) 650 mg PO Q6H PRN PRN Reason: FEVER OR PAIN Last Admin: 08/02/16 21:04 Dose: 650 mg Lorazepam 40 mg/ Dextrose 120 mls @ 6 mls/hr IVPB TITR VANES[facility]; 2 MG/HR PRN Reason: Protocol Last Admin: 08/04/16 12:09 Dose: 6 mls/hr Morphine Sulfate 100 mg/ (Sodium Chloride) 100 mls @ 4 mls/hr IVPB TITR [facility]; 4 MG/HR PRN Reason: Protocol Last Titration: 08/04/16 11:46 Dose: 5 mg/hr Levetiracetam (Keppra Injection -) 500 mg IVPB BID [facility] Last Admin: 08/04/16 09:04 Dose: 500 mg Lorazepam (Ativan Injection -) 2 mg IVPUSH Q2H PRN PRN Reason: ANXIETY Last Admin: 08/04/16 11:25 Dose: 2 mg Constitutional: Yes: Intubated / minimally responsive Eyes: Yes: Other (pupils sluggish) HENT: Yes: Other (NGT with dark residual) Neck: Yes: WNL Cardiovascular: Yes: S1, S2, Other (sinus on tele) Respiratory: Yes: Diminished at the bases, bilateral rhonchi, Intubated / Ventilated Gastrointestinal: Yes: Normal Bowel Sounds, Soft, Abdomen, Obese, Distention ...Rectal Exam: Yes: Deferred Renal/: Yes: [place] Present Musculoskeletal: Yes: WNL Extremities: Yes: WNL Edema: No Peripheral Pulses WNL: Yes (+1 bilateral pedal pulses) Integumentary: Yes: Other (change in color lower sternal region) Neurological: Yes: Unresponsive Labs: Laboratory Results - last 24 hr 08/03/16 08/03/16 08/03/16 12:24 12:55 18:13 WBC RBC Hgb Hct MCV MCHC RDW Plt Count MPV Neutrophils % Lymphocytes % Monocytes % Eosinophils % Basophils % Puncture Site ABG pH ABG pCO2 at Pt Temp ABG pO2 at Pt Temp ABG HCO3 ABG O2 Sat (Measured) ABG O2 Content ABG Base Excess George Test O2 Delivery Device Oxygen Flow Rate Vent Mode Vent Rate Mechanical Rate PEEP Pressure Support Vent Sodium Potassium Chloride Carbon Dioxide Anion Gap BUN Creatinine Creat Clearance w eGFR POC Glucometer > 400 > 400 Random Glucose 544 H* Calcium Total Bilirubin AST ALT Alkaline Phosphatase Total Protein Albumin 08/04/16 08/04/16 08/04/16 05:00 05:00 07:25 WBC 10.6 H RBC 3.69 L Hgb 11.3 L Hct 33.5 L MCV 90.8 MCHC 33.6 RDW 13.5 Plt Count 251 MPV 7.8 Neutrophils % 78.4 Lymphocytes % 14.6 D Monocytes % 6.4 Eosinophils % 0.4 Basophils % 0.2 Puncture Site Left radial ABG pH 7.45 ABG pCO2 at Pt Temp 44.9 ABG pO2 at Pt Temp 80.6 D ABG HCO3 30.7 H ABG O2 Sat (Measured) 96.2 ABG O2 Content 14.7 L ABG Base Excess 6.3 H George Test Positive O2 Delivery Device Vent Oxygen Flow Rate 35% Vent Mode A/c Vent Rate 22 Mechanical Rate Y PEEP 5.0 Pressure Support Vent 375 Sodium 151 H Potassium 4.1 D Chloride 112 H Carbon Dioxide 30 Anion Gap 9 BUN 58 H Creatinine 1.4 H Creat Clearance w eGFR 50.70 POC Glucometer Random Glucose 402 H* D Calcium 8.6 Total Bilirubin 0.3 D AST 51 H ALT 70 D Alkaline Phosphatase 103 Total Protein 5.9 L Albumin 2.0 L 08/04/16 10:37 WBC RBC Hgb Hct MCV MCHC RDW Plt Count MPV Neutrophils % Lymphocytes % Monocytes % Eosinophils % Basophils % Puncture Site ABG pH ABG pCO2 at Pt Temp ABG pO2 at Pt Temp ABG HCO3 ABG O2 Sat (Measured) ABG O2 Content ABG Base Excess George Test O2 Delivery Device Oxygen Flow Rate Vent Mode Vent Rate Mechanical Rate PEEP Pressure Support Vent Sodium Potassium Chloride Carbon Dioxide Anion Gap BUN Creatinine Creat Clearance w eGFR POC Glucometer > 400 Random Glucose Calcium Total Bilirubin AST ALT Alkaline Phosphatase Total Protein Albumin Assessment/Plan S/P Cardiac Arrest with prolonged ROSC Suspected SUNDAR Shock -> Cardiogenic +/- Septic COPD HTN DM (?) PNA CHF CAD Demand ischemia Acute on CKD PLAN: Long ongoing discussions with the patient's family. They have requested for compassionate extubation given that the patient had clear conversations with his that he would not want prolonged life support if he could not return to baseline function. For compassionate extubation and comfort measures only. Dr Dolan CCTime 35"
[2016-08-04 14:44] VITALS: BP 129/73; PULSE 49
--- NOTE | 2016-08-04 15:08 | HOSP ---
Subjective - Review of Symptoms Events since last encounter: Patient removed off ventilator and extubated earlier this afternoon, as per family's wishes. Noted asystole on monitor at 3PM and patient was found without breath sounds, without heart beats or pulse, and without brainstem reflexes. Time of 03:01 PM. Family at bedside. MD Woodruff to be notified. Physical Examination Vital Signs: Vital Signs Temperature 97.1 F L 08/04/16 08:42 Pulse Rate 49 L 08/04/16 14:42 Respiratory Rate 10 L 08/04/16 14:42 Blood Pressure 129/73 08/04/16 14:42 O2 Sat by Pulse Oximetry (%) 99 08/04/16 09:56 Labs: CBC, BMP 08/04/16 05:00 08/04/16 05:00 Visit type - Emergency Visit Emergency Visit: Yes ED Registration Date: 07/27/16 Care time: The patient presented to the Emergency Department on the above date and was hospitalized for further evaluation of their emergent condition. - New Patient This patient is new to me today: No - Critical Care Critical Care patient: Yes Total Critical Care Time (in minutes): 35 Critical Care Statement: The care of this patient involved high complexity decision making to prevent further life threatening deterioration of the patient 's condition and/or to evalute & treat vital organ system(s) failure or risk of failure.
--- NOTE | 2016-08-04 16:26 | DS ---
Physical Examination Vital Signs: Vital Signs Temperature 97.1 F L 08/04/16 08:42 Pulse Rate 49 L 08/04/16 14:42 Respiratory Rate 10 L 08/04/16 14:42 Blood Pressure 129/73 08/04/16 14:42 O2 Sat by Pulse Oximetry (%) 99 08/04/16 09:56 Labs: CBC, BMP 08/04/16 05:00 08/04/16 05:00 Discharge Summary Reason For Visit: CARDIAC ARREST Current Active Problems Cardiac arrest (Acute) Non-cardiogenic pulmonary edema (Acute) Pneumonia (Acute) Hospital Course: s/p cardiac arrest suffered anoxic encephalopathy condition deteriorated today Condition: - Instructions Referrals: Padma Woodruff MD [Primary Care Provider] - - Home Medications Comprehensive Discharge Medication List: Ambulatory Orders Insulin Lispro [Humalog] 100 unit SQ DAILY 07/28/16
== END 2016-08-04 16:40 | disposition expired | DRG 207 ==
LOC: JER 21:53 → JERBED 23:20 → JICU 07-28 01:03
PROVIDERS: ADMIT Internal Medicine; ATTEND Internal Medicine
PROC: 5A1955Z Respiratory Ventilation, Greater than 96 Consecutive Hours (ICD-10-PCS; principal; 2016-07-27)
PROC: 0BH17EZ Insertion of Endotracheal Airway into Trachea, Via Natural or Artificial Opening (ICD-10-PCS; 2016-07-27)
DX: J96.00 Acute respiratory failure, unspecified whether with hypoxia or hypercapnia (principal); I50.21 Acute systolic (congestive) heart failure; A41.9 Sepsis, unspecified organism; R65.21 Severe sepsis with septic shock; J81.0 Acute pulmonary edema; J69.0 Pneumonitis due to inhalation of food and vomit; R40.20 Unspecified coma; G93.1 Anoxic brain damage, not elsewhere classified; I13.0 Hypertensive heart and chronic kidney disease with heart failure and stage 1 through stage 4 chronic kidney disease, or unspecified chronic kidney disease; N17.9 Acute kidney failure, unspecified; E87.0 Hyperosmolality and hypernatremia; N18.3 Chronic kidney disease, stage 3 (moderate); E11.9 Type 2 diabetes mellitus without complications; J44.9 Chronic obstructive pulmonary disease, unspecified; I25.2 Old myocardial infarction; D64.9 Anemia, unspecified; E78.5 Hyperlipidemia, unspecified; I46.9 Cardiac arrest, cause unspecified; Z79.4 Long term (current) use of insulin; I25.119 Atherosclerotic heart disease of native coronary artery with unspecified angina pectoris; I45.10 Unspecified right bundle-branch block
CPT/HCPCS: 36415; 36600; 70450-TC; 71010-TC; 74000-TC; 74176-TC; 80048; 80053; 80307; 81003; 81015; 82009; 82375; 82550; 82553; 82803; 82947; 83050; 83605; 83690; 83735; 83880; 84100; 84484; 85025; 85027; 85610; 85730; 86850; 86900; 86901; 87040; 87070; 87086; 87186; 87205; 87254; 87804; 87899; 93005; 93010; 93306-TC; 94002; 94640; 95816; 99284-25